=== PATIENT | female | born 1980 | race American Indian/Alaskan Native ===

== ENCOUNTER 2021-09-05 17:41 | Inpatient (IN) | payer SELFPAY ==
[2021-09-05 18:54] LABS: Hematocrit 38.6 % (30.3-42.9); Hemoglobin 12.6 gm/dl (10.1-14.3); Mean Corpuscular HGB Conc 33 % (30-34); Mean Corpuscular Volume 92 fl (79-97); Platelet Count 266 K/mm3 (140-440); Red Blood Count 4.22 M/mm3 (3.65-5.03); Red Cell Distribution Width 16.3 % (13.2-15.2)
[2021-09-05] MEDS ORDERED: fentaNYL 100 MCG/2 ML INJ IV PRN (18:56)
[2021-09-05] MEDS ORDERED: PROMETHAZINE 25 MG TAB PO PRN (18:56)
[2021-09-05] MEDS ORDERED: ACETAMINOPHEN 325 MG TAB PO PRN (18:56)
[2021-09-05] MEDS ORDERED: LOPERAMIDE 2 MG CAP PO PRN (18:56)
[2021-09-05] MEDS ORDERED: BUTORPHANOL 2 MG/1 ML INJ IV PRN (18:56)
[2021-09-05] MEDS ORDERED: NalbUPHINE 10 MG/1 ML INJ IV PRN (18:56)
[2021-09-05] MEDS ORDERED: MINERAL OIL 30 ML ORAL LIQD PO PRN (18:56)
--- NOTE | 2021-09-05 19:01 | History and Physical Report ---
History of Present Illness Date of examination: 09/05/21 History of present illness: 41-year-old -0-0-1 at 29 point 2/7 weeks with AUDREY 11/19/2021 by ultrasound presents with elevated blood pressures and headache. Patient of suture : Plan for evaluation of chronic hypertension with possible superimposed preeclampsia. Patient had a positive AFP for open neural tube defect: See records scanned into chart. Elevated blood pressures with associated headache and edema. Patient has a history of benign essential hypertension Patient was on 100 mg of labetalol twice daily started in April 2021 05/12/2021 24 urine protein 109 LDH 220 Uric acid 5.5 Platelets 442 Past History Past Medical History: hypertension - Obstetrical History Expected Date of Delivery: 11/19/21 Actual Gestation: 29 Week(s) 3 Day(s) : 2 Para: 1 Medications and Allergies Allergies Allergy/AdvReac Type Severity Reaction Status Date / Time No Known Allergies Allergy Unverified 09/05/21 17:54 Active Meds: Active Medications Acetaminophen (Acetaminophen 325 Mg Tab) 650 mg PO Q4H PRN PRN Reason: Pain, Mild (1-3) Butorphanol Tartrate (Butorphanol 2 Mg/1 Ml Inj) 2 mg IV Q2H PRN PRN Reason: Pain , Severe (7-10) Fentanyl (Fentanyl 100 Mcg/2 Ml Inj) 100 mcg IV Q2H PRN PRN Reason: Pain,Severe (7-10) LABOR PAIN Lactated Ringer's (Lactated Ringers) 1,000 mls @ 125 mls/hr IV DIRECT [facility]ERY[facility] Loperamide HCl (Loperamide 2 Mg Cap) 2 mg PO ONCE PRN PRN Reason: give with Hemabate Mineral Oil (Mineral Oil 30 Ml Oral Liqd) 30 ml PO QHS PRN PRN Reason: Constipation Nalbuphine HCl (Nalbuphine 10 Mg/1 Ml Inj) 10 mg IV Q2H PRN PRN Reason: Pain, Moderate (4-6) Promethazine HCl (Promethazine 25 Mg Tab) 25 mg PO Q6H PRN PRN Reason: Nausea And Vomiting Review of Systems All systems: negative (Positive headache, positive edema) - Vital Signs Vital signs: Vital Signs Pulse Pulse Ox 89 99 09/05/21 18:06 09/05/21 18:06 Temp Pulse Resp BP Pulse Ox 81 147/87 98 09/05/21 18:56 09/05/21 18:53 09/05/21 18:56 - Physical Exam Breasts: Positive: deferred Cardiovascular: Regular rate Lungs: Positive: Clear to auscultation, Normal air movement Abdomen: Positive: normal appearance, normal bowel sounds Genitourinary (Female): Positive: normal external genitalia, normal perenium Vulva: both: normal Vagina: Positive: normal moisture Uterus: Positive: enlarged Adnexa: both: normal Anus/Rectum: Positive: normal perianal skin Extremities: Positive: normal Deep Tendon Reflex Grade: Normal +2 - Obstetrical FHR: category 1 Results Result Diagrams: 09/05/21 18:40 09/05/21 18:40 Abnormal lab results 09/05/21 Range/Units 18:40 RDW 16.3 H (13.2-15.2) % All other labs normal. Assessment and Plan Admit to labor and delivery for 24-hour urine protein collection Continuous monitoring Labetalol 100 mg p.o. twice daily will increase if necessary IV labetalol and hydralazine for breakthrough blood pressures greater than 160/110 Serial PIH labs and blood pressure monitoring OB ultrasound for EFW, presentation, and BPP steroid Magnesium sulfate of blood pressures meet severe criteria APA consult in a.m. Maternal status stable at bedside Luther Philip MD
[2021-09-05 19:04] LABS: Bilirubin,Urine NEG (Negative); Blood,Urine SM (Negative); Color,Urine Straw (Yellow); RBC,Urine < 1.0 /HPF (0.0-6.0); Urobilinogen,Urine < 2.0 mg/dL (<2.0); WBC,Urine < 1.0 /HPF (0.0-6.0)
[2021-09-05 19:20] LABS: Alanine Aminotransferase 9 units/L (7-56); Uric Acid 5.8 mg/dL (3.5-7.6)
--- NOTE | 2021-09-05 19:22 | Ultrasound Report ---
ULTRASOUND OBSTETRIC LIMITED ULTRASOUND BIOPHYSICAL PROFILE INDICATION / CLINICAL INFORMATION: EFW,Placenta location, presentation. Clinical Gestational Age (GA) in weeks, days: 29, 2 TECHNIQUE: Transabdominal. COMPARISON: None available. FINDINGS: Single intrauterine . Biparietal Diameter = 7.2 cm = 28, 5 weeks, days Head Circumference = 26.4 cm = 28, 5 weeks, days Abdominal Circumference = 22.9 cm = 27, 2 weeks, days Femur Length = 5.3 cm = 28, 1 weeks, days Average Ultrasound Age (AUA) = 28, 2 weeks, days Estimated weight 1127 g. BREATHING MOVEMENT = 2 GROSS BODY MOVEMENT = 2 TONE = 2 QUALITATIVE AMNIOTIC FLUID VOLUME = 2 TOTAL BIOPHYSICAL SCORE = 8/8 HEART RATE (beats per minute): 154 PRESENTATION: Cephalic. ADDITIONAL FINDINGS: Posterior grade 2 placenta IMPRESSION: 1. Biophysical Score = 8/8 2. Single live intrauterine gestation with an average gestational age of 28 weeks 2 days. heart tones measured at 154 bpm. 3. Additional findings as above. Signer Name: Juan Antonio Noble DO Signed: 09/05/2021 7:18 PM Workstation Name: [id number]
[2021-09-05] MEDS: BETAMET ACET/BETAMET NA PH 6 MG/ML INJ 5 ML MDV IM SCH (20:22)
[2021-09-05] MEDS: LACTATED RINGERS 1,000 ML IV SCH (20:32)
[2021-09-06] MEDS: LACTATED RINGERS 1,000 ML IV SCH (04:40)
[2021-09-06] MEDS ORDERED: labetaloL 100 MG/20 ML INJ MDV IV PRN ×2 (06:12→06:15)
[2021-09-06] MEDS ORDERED: hydrALAZINE 20 MG/1 ML INJ IV PRN (06:18)
--- NOTE | 2021-09-06 14:55 | Progress Note ---
Subjective - Subjective Date of service: 09/06/21 Interval history: 41-year-old -0-0-1 at 29 point 3/7 weeks with AUDREY 11/19/2021 by ultrasound presents with elevated blood pressures and headache. Patient of Central : Plan for evaluation of chronic hypertension with possible superimposed preeclampsia. At bedside patient is awake alert and oriented x3 She has no complaints. She admits to good movement. 24-hour urine protein collection in process Review of blood pressures reveals a BP range of 180/92-130s over 80s in the past 24 hours. Patient has had 2 recorded severe blood pressure ranges over 160/110 in the last 24 hours. Plan is to increase for labetalol to 200 mg p.o. twice daily. PIH labs stable Plan for OB ultrasound for structural survey given a positive AFP APA consult in place Will use IV antihypertensive for breakthrough severe range blood pressures per acog emergent hypertension algorithm. Continue expectant management, will complete steroids today. Intermittent monitoring category 1 Maternal and status reassuring overall Luther Philip MD Objective - Vital Signs Vital Signs: Vital Signs - 12hr 09/06/21 09/06/21 09/06/21 02:59 03:04 03:09 Pulse Rate 88 85 88 Respiratory Rate Blood Pressure Blood Pressure [Right] O2 Sat by Pulse 97 97 96 Oximetry O2 Sat by Pulse Oximetry [ Anterior Bilateral Throughout] 09/06/21 09/06/21 09/06/21 03:14 03:19 03:24 Pulse Rate 90 88 82 Respiratory Rate Blood Pressure Blood Pressure [Right] O2 Sat by Pulse 97 98 98 Oximetry O2 Sat by Pulse Oximetry [ Anterior Bilateral Throughout] 09/06/21 09/06/21 09/06/21 03:29 03:34 03:39 Pulse Rate 88 102 H 104 H Respiratory Rate Blood Pressure Blood Pressure [Right] O2 Sat by Pulse 98 100 98 Oximetry O2 Sat by Pulse Oximetry [ Anterior Bilateral Throughout] 09/06/21 09/06/21 09/06/21 03:44 03:49 03:54 Pulse Rate 93 H 90 88 Respiratory Rate Blood Pressure Blood Pressure [Right] O2 Sat by Pulse 98 98 99 Oximetry O2 Sat by Pulse Oximetry [ Anterior Bilateral Throughout] 09/06/21 09/06/21 09/06/21 03:59 04:04 04:09 Pulse Rate 91 H 88 86 Respiratory Rate Blood Pressure Blood Pressure [Right] O2 Sat by Pulse 99 99 98 Oximetry O2 Sat by Pulse Oximetry [ Anterior Bilateral Throughout] 09/06/21 09/06/21 09/06/21 04:14 04:15 04:19 Pulse Rate 92 H 105 H 86 Respiratory Rate Blood Pressure Blood Pressure [Right] O2 Sat by Pulse 99 93 98 Oximetry O2 Sat by Pulse Oximetry [ Anterior Bilateral Throughout] 09/06/21 09/06/21 09/06/21 04:24 04:39 04:44 Pulse Rate 100 H 97 H 97 H Respiratory Rate Blood Pressure Blood Pressure [Right] O2 Sat by Pulse 98 99 99 Oximetry O2 Sat by Pulse Oximetry [ Anterior Bilateral Throughout] 09/06/21 09/06/21 09/06/21 04:49 04:52 04:54 Pulse Rate 96 H 96 H 97 H Respiratory Rate Blood Pressure 129/82 Blood Pressure 129/82 [Right] O2 Sat by Pulse 99 99 Oximetry O2 Sat by Pulse Oximetry [ Anterior Bilateral Throughout] 09/06/21 09/06/21 09/06/21 04:59 05:04 05:09 Pulse Rate 99 H 95 H 101 H Respiratory Rate Blood Pressure Blood Pressure [Right] O2 Sat by Pulse 99 99 99 Oximetry O2 Sat by Pulse Oximetry [ Anterior Bilateral Throughout] 09/06/21 09/06/21 09/06/21 05:14 05:19 05:24 Pulse Rate 92 H 96 H 94 H Respiratory Rate Blood Pressure Blood Pressure [Right] O2 Sat by Pulse 99 99 98 Oximetry O2 Sat by Pulse Oximetry [ Anterior Bilateral Throughout] 09/06/21 09/06/21 09/06/21 05:29 05:34 05:39 Pulse Rate 96 H 109 H 95 H Respiratory Rate Blood Pressure Blood Pressure [Right] O2 Sat by Pulse 98 99 98 Oximetry O2 Sat by Pulse Oximetry [ Anterior Bilateral Throughout] 09/06/21 09/06/21 09/06/21 05:44 05:49 05:54 Pulse Rate 96 H 107 H 96 H Respiratory Rate Blood Pressure Blood Pressure [Right] O2 Sat by Pulse 97 97 98 Oximetry O2 Sat by Pulse Oximetry [ Anterior Bilateral Throughout] 09/06/21 09/06/21 09/06/21 05:59 06:04 06:09 Pulse Rate 107 H 117 H 91 H Respiratory Rate Blood Pressure Blood Pressure [Right] O2 Sat by Pulse 98 96 98 Oximetry O2 Sat by Pulse Oximetry [ Anterior Bilateral Throughout] 09/06/21 09/06/21 09/06/21 06:14 06:19 06:24 Pulse Rate 100 H 99 H 89 Respiratory Rate Blood Pressure Blood Pressure [Right] O2 Sat by Pulse 97 97 97 Oximetry O2 Sat by Pulse Oximetry [ Anterior Bilateral Throughout] 09/06/21 09/06/21 09/06/21 06:29 06:31 06:34 Pulse Rate 88 103 H 89 Respiratory Rate Blood Pressure Blood Pressure [Right] O2 Sat by Pulse 98 91 98 Oximetry O2 Sat by Pulse Oximetry [ Anterior Bilateral Throughout] 09/06/21 09/06/21 09/06/21 06:37 06:39 06:42 Pulse Rate 98 H 88 71 Respiratory Rate Blood Pressure Blood Pressure [Right] O2 Sat by Pulse 93 95 93 Oximetry O2 Sat by Pulse Oximetry [ Anterior Bilateral Throughout] 09/06/21 09/06/21 09/06/21 06:44 06:49 06:54 Pulse Rate 92 H 91 H 103 H Respiratory Rate Blood Pressure Blood Pressure [Right] O2 Sat by Pulse 95 98 97 Oximetry O2 Sat by Pulse Oximetry [ Anterior Bilateral Throughout] 09/06/21 09/06/21 09/06/21 06:59 07:04 07:09 Pulse Rate 95 H 85 86 Respiratory Rate Blood Pressure Blood Pressure [Right] O2 Sat by Pulse 96 98 97 Oximetry O2 Sat by Pulse Oximetry [ Anterior Bilateral Throughout] 09/06/21 09/06/21 09/06/21 07:14 07:19 07:24 Pulse Rate 86 90 98 H Respiratory Rate Blood Pressure Blood Pressure [Right] O2 Sat by Pulse 98 99 98 Oximetry O2 Sat by Pulse Oximetry [ Anterior Bilateral Throughout] 09/06/21 09/06/21 09/06/21 07:25 07:26 07:27 Pulse Rate 95 H 99 H Respiratory 16 Rate Blood Pressure 146/81 Blood Pressure 146/81 [Right] O2 Sat by Pulse 100 Oximetry O2 Sat by Pulse 98 Oximetry [ Anterior Bilateral Throughout] 09/06/21 09/06/21 09/06/21 07:29 07:34 08:10 Pulse Rate 95 H 102 H 85 Respiratory Rate Blood Pressure Blood Pressure [Right] O2 Sat by Pulse 99 97 98 Oximetry O2 Sat by Pulse Oximetry [ Anterior Bilateral Throughout] 09/06/21 09/06/21 09/06/21 08:15 08:20 08:25 Pulse Rate 104 H 106 H 97 H Respiratory Rate Blood Pressure Blood Pressure [Right] O2 Sat by Pulse 97 97 96 Oximetry O2 Sat by Pulse Oximetry [ Anterior Bilateral Throughout] 09/06/21 09/06/21 09/06/21 08:26 08:30 08:35 Pulse Rate 101 H 99 H 87 Respiratory Rate Blood Pressure Blood Pressure [Right] O2 Sat by Pulse 94 96 97 Oximetry O2 Sat by Pulse Oximetry [ Anterior Bilateral Throughout] 09/06/21 09/06/21 09/06/21 08:36 08:40 08:45 Pulse Rate 98 H 98 H 94 H Respiratory Rate Blood Pressure Blood Pressure [Right] O2 Sat by Pulse 94 97 97 Oximetry O2 Sat by Pulse Oximetry [ Anterior Bilateral Throughout] 09/06/21 09/06/21 09/06/21 08:50 08:55 09:00 Pulse Rate 101 H 99 H 92 H Respiratory Rate Blood Pressure Blood Pressure [Right] O2 Sat by Pulse 98 98 97 Oximetry O2 Sat by Pulse Oximetry [ Anterior Bilateral Throughout] 09/06/21 09/06/21 09/06/21 09:05 09:10 09:15 Pulse Rate 88 92 H 88 Respiratory Rate Blood Pressure Blood Pressure [Right] O2 Sat by Pulse 98 99 98 Oximetry O2 Sat by Pulse Oximetry [ Anterior Bilateral Throughout] 09/06/21 09/06/21 09/06/21 09:20 09:25 09:30 Pulse Rate 103 H 104 H 128 H Respiratory Rate Blood Pressure Blood Pressure [Right] O2 Sat by Pulse 98 100 98 Oximetry O2 Sat by Pulse Oximetry [ Anterior Bilateral Throughout] 09/06/21 09/06/21 09/06/21 09:35 09:40 09:45 Pulse Rate 112 H 102 H 100 H Respiratory Rate Blood Pressure Blood Pressure [Right] O2 Sat by Pulse 98 98 97 Oximetry O2 Sat by Pulse Oximetry [ Anterior Bilateral Throughout] 09/06/21 09/06/21 09/06/21 09:49 09:55 09:59 Pulse Rate 103 H 104 H 105 H Respiratory Rate Blood Pressure Blood Pressure [Right] O2 Sat by Pulse 98 98 99 Oximetry O2 Sat by Pulse Oximetry [ Anterior Bilateral Throughout] 09/06/21 09/06/21 09/06/21 10:02 10:04 10:32 Pulse Rate 100 H 102 H 100 H Respiratory Rate Blood Pressure 161/94 161/94 Blood Pressure [Right] O2 Sat by Pulse 98 Oximetry O2 Sat by Pulse Oximetry [ Anterior Bilateral Throughout] 09/06/21 09/06/21 09/06/21 13:25 13:26 13:28 Pulse Rate 100 H 100 H 100 H Respiratory Rate Blood Pressure 141/93 139/88 Blood Pressure [Right] O2 Sat by Pulse 99 Oximetry O2 Sat by Pulse Oximetry [ Anterior Bilateral Throughout] 09/06/21 13:30 Pulse Rate 99 H Respiratory Rate Blood Pressure Blood Pressure [Right] O2 Sat by Pulse 99 Oximetry O2 Sat by Pulse Oximetry [ Anterior Bilateral Throughout] - Labs Labs: Abnormal Labs 09/05/21 09/05/21 18:40 18:40 RDW 16.3 H Creatinine 0.5 L Lactate Dehydrogenase 275 H Laboratory Results - last 24 hr 09/05/21 09/05/21 09/05/21 18:30 18:40 18:40 WBC 8.1 RBC 4.22 Hgb 12.6 Hct 38.6 MCV 92 MCH 30 MCHC 33 RDW 16.3 H Plt Count 266 Creatinine 0.5 L Estimated GFR > 60 Uric Acid 5.8 AST 19 ALT 9 Lactate Dehydrogenase 275 H Urine Color Straw Urine Turbidity Clear Urine pH 6.0 Ur Specific [place] 1.006 Urine Protein 30 mg/dl Urine Glucose (UA) Neg Urine Ketones Neg Urine Blood Sm Urine Nitrite Neg Urine Bilirubin Neg Urine Urobilinogen < 2.0 Ur Leukocyte Esterase Neg Urine WBC (Auto) < 1.0 Urine RBC (Auto) < 1.0 U Epithel Cells (Auto) 2.0 SARS-CoV-2 (PCR) Blood Type Antibody Screen 09/05/21 09/06/21 18:40 10:00 WBC RBC Hgb Hct MCV MCH MCHC RDW Plt Count Creatinine Estimated GFR Uric Acid AST ALT Lactate Dehydrogenase Urine Color Urine Turbidity Urine pH Ur Specific [place] Urine Protein Urine Glucose (UA) Urine Ketones Urine Blood Urine Nitrite Urine Bilirubin Urine Urobilinogen Ur Leukocyte Esterase Urine WBC (Auto) Urine RBC (Auto) U Epithel Cells (Auto) SARS-CoV-2 (PCR) Negative Blood Type B POSITIVE Antibody Screen Negative
--- NOTE | 2021-09-06 17:04 | Consultation ---
History of Present Illness Consult date: 09/06/21 Requesting physician: DIMITRIS PENA History of present illness: Ms. Patel is a 41 y/o AUDREY 11/19/21 EGA at 29 3/7 weeks sent in from OB' office with elevated BP's and CORRAL ? Denies H/O CHTN - states started on Labetalol early in ? around 20 weeks BP in ob office 09/05/21 at 155/96 Nurse reports High BP of 161/94 this am Most recent BP's 149/87 and 161/94 Denies CORRAL's [place] or RUQ Pain Pos ONTD screen PIH labs 09/05/21 AST/ALT at 19/9 H/H at 12.6/38 Plts at 266 Creat at .5 Spot UA at 30 24 Hour Urine Prot Pending ( 24 Hour Urine Prot at 109 mg on 05/12/21 ) [facility] US 09/05/21 EFW at 1127 mg / 24 hours - at 5% with AC at 3.7% - FGR BPP 8/8 Labetalol started 100 mg BID in April - Now 200 BID Abd obese NT no ruq tenderness ext 1 plus edema dtr 2/4 no clonus Past History Past Medical History: hypertension - Obstetrical History : 2 Medications and Allergies Allergies Allergy/AdvReac Type Severity Reaction Status Date / Time No Known Allergies Allergy Unverified 09/05/21 17:54 Active Meds: Active Medications Acetaminophen (Acetaminophen 325 Mg Tab) 650 mg PO Q4H PRN PRN Reason: Pain, Mild (1-3) Last Admin: 09/05/21 20:21 Dose: 650 mg Betamethasone Acet/Betameth SodPhos (Betamet Acet/Betamet Na Ph 6 Mg/Ml Inj 5 Ml Mdv) 12 mg IM Q24H [facility] Stop: 09/06/21 20:01 Last Admin: 09/05/21 20:22 Dose: 12 mg Butorphanol Tartrate (Butorphanol 2 Mg/1 Ml Inj) 2 mg IV Q2H PRN PRN Reason: Pain , Severe (7-10) Fentanyl (Fentanyl 100 Mcg/2 Ml Inj) 100 mcg IV Q2H PRN PRN Reason: Pain,Severe (7-10) LABOR PAIN Hydralazine HCl (Hydralazine 20 Mg/1 Ml Inj) 10 mg IV ONCE PRN PRN Reason: Blood Pressure Lactated Ringer's (Lactated Ringers) 1,000 mls @ 125 mls/hr IV DIRECT [facility] Last Admin: 09/06/21 04:40 Dose: 125 mls/hr Labetalol HCl (Labetalol 100 Mg Tab) 100 mg PO BID [facility] Last Admin: 09/06/21 10:32 Dose: 100 mg Labetalol HCl (Labetalol 20 Mg/4 Ml Inj) 20 mg IV ONCE PRN PRN Reason: Blood Pressure Labetalol HCl (Labetalol 100 Mg/20 Ml Inj Mdv) 40 mg IV ONCE PRN PRN Reason: Blood Pressure Labetalol HCl (Labetalol 100 Mg/20 Ml Inj Mdv) 80 mg IV ONCE PRN PRN Reason: Blood Pressure Labetalol HCl (Labetalol 200 Mg Tab) 200 mg PO BID [facility] Loperamide HCl (Loperamide 2 Mg Cap) 2 mg PO ONCE PRN PRN Reason: give with Hemabate Mineral Oil (Mineral Oil 30 Ml Oral Liqd) 30 ml PO QHS PRN PRN Reason: Constipation Nalbuphine HCl (Nalbuphine 10 Mg/1 Ml Inj) 10 mg IV Q2H PRN PRN Reason: Pain, Moderate (4-6) Promethazine HCl (Promethazine 25 Mg Tab) 25 mg PO Q6H PRN PRN Reason: Nausea And Vomiting - Vital Signs Vital signs: Vital Signs Pulse Pulse Ox 89 99 09/05/21 18:06 09/05/21 18:06 Temp Pulse Resp BP Pulse Ox 98.8 F 94 H 16 149/87 99 09/05/21 19:19 09/06/21 17:01 09/06/21 07:26 09/06/21 17:01 09/06/21 16:58 Results Result Diagrams: 09/05/21 18:40 09/05/21 18:40 Abnormal lab results 09/05/21 09/05/21 Range/Units 18:40 18:40 RDW 16.3 H (13.2-15.2) % Creatinine 0.5 L (0.6-1.2) mg/dL Lactate Dehydrogenase 275 H (91-180) units/L All other labs normal. Assessment and Plan Impression 1. [place] IUP at 29 3/7 weeks 2. Suspected CHTN R/O Superimposed Preeclampsia 3. FGR 4. Pos ONTD Screen 5. AMA - NIPT Neg - Please have OB confirm Recommendations 1. Please obtain Arterial Cord Dopplers due to FGR 2. Labetalol 200 BID if BP's not improving increase to 200 TID 3. 24 Hour urine pending 4. IV Labetalol/Hydralazine for BP's Sys > 160 or [place] > 110 5. Delivery for S/S of severe preeclampsia or compromise 6. LDA q day 7. Steroids for FLM 8. Deposition pending completion of 24 Hour urine prot 9. Serial US for growth q 2-3 weeks 10. BPP and cord dopplers twice per week due to FGR
--- NOTE | 2021-09-06 18:32 | Ultrasound Report ---
ULTRASOUND OB VELOCIMETRY UMBILICAL ARTERY HISTORY: PIH TECHNIQUE: Transabdominal ultrasound with color and spectral Doppler imaging COMPARISON: None available FINDINGS: 3 segments of the umbilical cord were evaluated. heart rate measures 155 bpm. The spectral wave forms are normal and persistent. Average S/D ratio measures: 3.7 Average resistive index measures: 0.7 IMPRESSION: No significant abnormality. Signer Name: Richard Leal MD Signed: 09/06/2021 6:27 PM Workstation Name: [id number]
[2021-09-06] MEDS: BETAMET ACET/BETAMET NA PH 6 MG/ML INJ 5 ML MDV IM SCH (21:48)
--- NOTE | 2021-09-07 14:14 | Progress Note ---
Assessment and Plan IUP at 29.4wks with chronic HTN, mild preeclampsia without headache or severe features; s/p steroids 1. Adjust labetalol oral upwards 300mg q8hrs and give IV antihypertensive as needed 2. Appreciate APA 3. Will do mgt per APA recommendations Subjective Date of service: 09/07/21 Principal diagnosis: IUP at 29.4wks with chronic HTN, mild preeclampsia Interval history: Pt denies headache and has been taking her meds at the hospital. pt admits to movement, denies LOF or vag bleed. Objective - Constitutional Vitals: Vital Signs - 12hr 09/07/21 09/07/21 09/07/21 02:13 02:18 02:23 Temperature Pulse Rate 98 H 116 H 100 H Respiratory Rate Blood Pressure O2 Sat by Pulse 98 98 98 Oximetry O2 Sat by Pulse Oximetry [ Anterior Bilateral Throughout] 09/07/21 09/07/21 09/07/21 02:28 02:33 02:38 Temperature Pulse Rate 96 H 99 H 95 H Respiratory Rate Blood Pressure O2 Sat by Pulse 99 100 98 Oximetry O2 Sat by Pulse Oximetry [ Anterior Bilateral Throughout] 09/07/21 09/07/21 09/07/21 02:43 02:48 02:53 Temperature Pulse Rate 97 H 97 H 97 H Respiratory Rate Blood Pressure O2 Sat by Pulse 98 98 98 Oximetry O2 Sat by Pulse Oximetry [ Anterior Bilateral Throughout] 09/07/21 09/07/21 09/07/21 02:58 02:59 03:03 Temperature Pulse Rate 98 H 104 H 93 H Respiratory Rate Blood Pressure 134/76 O2 Sat by Pulse 98 99 Oximetry O2 Sat by Pulse Oximetry [ Anterior Bilateral Throughout] 09/07/21 09/07/21 09/07/21 03:08 03:13 03:18 Temperature Pulse Rate 95 H 95 H 101 H Respiratory Rate Blood Pressure O2 Sat by Pulse 98 98 99 Oximetry O2 Sat by Pulse Oximetry [ Anterior Bilateral Throughout] 09/07/21 09/07/21 09/07/21 03:23 03:28 03:33 Temperature Pulse Rate 97 H 97 H 96 H Respiratory Rate Blood Pressure O2 Sat by Pulse 98 98 98 Oximetry O2 Sat by Pulse Oximetry [ Anterior Bilateral Throughout] 09/07/21 09/07/21 09/07/21 03:38 03:43 03:48 Temperature Pulse Rate 90 92 H 91 H Respiratory Rate Blood Pressure O2 Sat by Pulse 99 97 98 Oximetry O2 Sat by Pulse Oximetry [ Anterior Bilateral Throughout] 09/07/21 09/07/21 09/07/21 03:53 03:58 03:59 Temperature Pulse Rate 91 H 95 H 93 H Respiratory Rate Blood Pressure 133/67 O2 Sat by Pulse 98 98 Oximetry O2 Sat by Pulse Oximetry [ Anterior Bilateral Throughout] 09/07/21 09/07/21 09/07/21 04:03 04:08 04:13 Temperature Pulse Rate 91 H 96 H 101 H Respiratory Rate Blood Pressure O2 Sat by Pulse 98 97 98 Oximetry O2 Sat by Pulse Oximetry [ Anterior Bilateral Throughout] 09/07/21 09/07/21 09/07/21 04:18 04:23 04:28 Temperature Pulse Rate 92 H 88 90 Respiratory Rate Blood Pressure O2 Sat by Pulse 98 98 97 Oximetry O2 Sat by Pulse Oximetry [ Anterior Bilateral Throughout] 09/07/21 09/07/21 09/07/21 04:33 04:38 04:43 Temperature Pulse Rate 93 H 87 88 Respiratory Rate Blood Pressure O2 Sat by Pulse 97 97 97 Oximetry O2 Sat by Pulse Oximetry [ Anterior Bilateral Throughout] 09/07/21 09/07/21 09/07/21 04:48 04:53 04:58 Temperature Pulse Rate 92 H 88 102 H Respiratory Rate Blood Pressure O2 Sat by Pulse 97 98 98 Oximetry O2 Sat by Pulse Oximetry [ Anterior Bilateral Throughout] 09/07/21 09/07/21 09/07/21 04:59 05:03 05:08 Temperature Pulse Rate 97 H 87 85 Respiratory Rate Blood Pressure 136/75 O2 Sat by Pulse 98 99 Oximetry O2 Sat by Pulse Oximetry [ Anterior Bilateral Throughout] 09/07/21 09/07/21 09/07/21 05:13 05:18 05:23 Temperature Pulse Rate 88 86 91 H Respiratory Rate Blood Pressure O2 Sat by Pulse 99 98 98 Oximetry O2 Sat by Pulse Oximetry [ Anterior Bilateral Throughout] 09/07/21 09/07/21 09/07/21 05:28 05:33 05:38 Temperature Pulse Rate 92 H 102 H 90 Respiratory Rate Blood Pressure O2 Sat by Pulse 97 97 98 Oximetry O2 Sat by Pulse Oximetry [ Anterior Bilateral Throughout] 09/07/21 09/07/21 09/07/21 05:43 05:48 05:53 Temperature Pulse Rate 86 83 89 Respiratory Rate Blood Pressure O2 Sat by Pulse 98 99 98 Oximetry O2 Sat by Pulse Oximetry [ Anterior Bilateral Throughout] 09/07/21 09/07/21 09/07/21 05:58 05:59 06:03 Temperature Pulse Rate 88 100 H 89 Respiratory Rate Blood Pressure 139/75 O2 Sat by Pulse 98 94 98 Oximetry O2 Sat by Pulse Oximetry [ Anterior Bilateral Throughout] 09/07/21 09/07/21 09/07/21 06:08 06:13 06:18 Temperature Pulse Rate 90 86 84 Respiratory Rate Blood Pressure O2 Sat by Pulse 99 98 98 Oximetry O2 Sat by Pulse Oximetry [ Anterior Bilateral Throughout] 09/07/21 09/07/21 09/07/21 06:23 06:28 06:33 Temperature Pulse Rate 88 87 88 Respiratory Rate Blood Pressure O2 Sat by Pulse 98 98 99 Oximetry O2 Sat by Pulse Oximetry [ Anterior Bilateral Throughout] 09/07/21 09/07/21 09/07/21 06:41 06:46 06:51 Temperature Pulse Rate 111 H 82 84 Respiratory Rate Blood Pressure O2 Sat by Pulse 99 99 99 Oximetry O2 Sat by Pulse Oximetry [ Anterior Bilateral Throughout] 09/07/21 09/07/21 09/07/21 06:56 06:59 07:01 Temperature Pulse Rate 91 H 89 82 Respiratory Rate Blood Pressure 176/95 O2 Sat by Pulse 99 99 Oximetry O2 Sat by Pulse Oximetry [ Anterior Bilateral Throughout] 09/07/21 09/07/21 09/07/21 07:06 07:07 07:08 Temperature Pulse Rate 93 H 92 H 91 H Respiratory Rate Blood Pressure 168/100 155/83 O2 Sat by Pulse 98 Oximetry O2 Sat by Pulse Oximetry [ Anterior Bilateral Throughout] 09/07/21 09/07/21 09/07/21 07:11 07:16 07:21 Temperature Pulse Rate 89 81 84 Respiratory Rate Blood Pressure O2 Sat by Pulse 100 99 98 Oximetry O2 Sat by Pulse Oximetry [ Anterior Bilateral Throughout] 09/07/21 09/07/21 09/07/21 07:26 07:31 07:35 Temperature 98.8 F Pulse Rate 88 83 99 H Respiratory 18 Rate Blood Pressure O2 Sat by Pulse 98 99 100 Oximetry O2 Sat by Pulse 100 Oximetry [ Anterior Bilateral Throughout] 09/07/21 09/07/21 09/07/21 07:36 07:41 07:46 Temperature Pulse Rate 95 H 78 98 H Respiratory Rate Blood Pressure O2 Sat by Pulse 99 99 98 Oximetry O2 Sat by Pulse Oximetry [ Anterior Bilateral Throughout] 09/07/21 09/07/21 09/07/21 07:51 07:56 07:59 Temperature Pulse Rate 111 H 110 H 105 H Respiratory Rate Blood Pressure 148/86 O2 Sat by Pulse 97 97 Oximetry O2 Sat by Pulse Oximetry [ Anterior Bilateral Throughout] 09/07/21 09/07/21 09/07/21 08:01 08:06 08:11 Temperature Pulse Rate 101 H 105 H 80 Respiratory Rate Blood Pressure O2 Sat by Pulse 98 97 97 Oximetry O2 Sat by Pulse Oximetry [ Anterior Bilateral Throughout] 09/07/21 09/07/21 09/07/21 08:16 08:21 08:26 Temperature Pulse Rate 73 78 83 Respiratory Rate Blood Pressure O2 Sat by Pulse 99 99 99 Oximetry O2 Sat by Pulse Oximetry [ Anterior Bilateral Throughout] 09/07/21 09/07/21 09/07/21 08:31 08:36 08:41 Temperature Pulse Rate 79 82 84 Respiratory Rate Blood Pressure O2 Sat by Pulse 98 99 99 Oximetry O2 Sat by Pulse Oximetry [ Anterior Bilateral Throughout] 09/07/21 09/07/21 09/07/21 08:46 08:51 08:56 Temperature Pulse Rate 88 86 86 Respiratory Rate Blood Pressure O2 Sat by Pulse 96 98 97 Oximetry O2 Sat by Pulse Oximetry [ Anterior Bilateral Throughout] 09/07/21 09/07/21 09/07/21 08:59 09:01 09:06 Temperature Pulse Rate 93 H 91 H 94 H Respiratory Rate Blood Pressure 155/75 O2 Sat by Pulse 98 98 Oximetry O2 Sat by Pulse Oximetry [ Anterior Bilateral Throughout] 09/07/21 09/07/21 09/07/21 09:11 09:16 09:21 Temperature Pulse Rate 79 84 81 Respiratory Rate Blood Pressure O2 Sat by Pulse 98 97 98 Oximetry O2 Sat by Pulse Oximetry [ Anterior Bilateral Throughout] 09/07/21 09/07/21 09/07/21 09:26 09:31 09:36 Temperature Pulse Rate 83 90 95 H Respiratory Rate Blood Pressure O2 Sat by Pulse 100 99 100 Oximetry O2 Sat by Pulse Oximetry [ Anterior Bilateral Throughout] 09/07/21 09/07/21 09/07/21 09:41 09:46 09:51 Temperature Pulse Rate 93 H 101 H 90 Respiratory Rate Blood Pressure O2 Sat by Pulse 99 99 98 Oximetry O2 Sat by Pulse Oximetry [ Anterior Bilateral Throughout] 09/07/21 09/07/21 09/07/21 09:56 09:59 10:01 Temperature Pulse Rate 89 88 101 H Respiratory Rate Blood Pressure 138/81 O2 Sat by Pulse 99 97 Oximetry O2 Sat by Pulse Oximetry [ Anterior Bilateral Throughout] 09/07/21 09/07/21 09/07/21 10:02 10:03 10:06 Temperature Pulse Rate 85 85 95 H Respiratory Rate Blood Pressure 138/81 138/81 O2 Sat by Pulse 98 Oximetry O2 Sat by Pulse Oximetry [ Anterior Bilateral Throughout] 09/07/21 09/07/21 09/07/21 10:11 10:16 10:21 Temperature Pulse Rate 86 88 87 Respiratory Rate Blood Pressure O2 Sat by Pulse 99 99 99 Oximetry O2 Sat by Pulse Oximetry [ Anterior Bilateral Throughout] 09/07/21 09/07/21 09/07/21 10:26 10:31 10:36 Temperature Pulse Rate 88 89 87 Respiratory Rate Blood Pressure O2 Sat by Pulse 98 98 98 Oximetry O2 Sat by Pulse Oximetry [ Anterior Bilateral Throughout] 09/07/21 09/07/21 09/07/21 10:41 10:46 10:51 Temperature Pulse Rate 85 97 H 102 H Respiratory Rate Blood Pressure O2 Sat by Pulse 99 97 98 Oximetry O2 Sat by Pulse Oximetry [ Anterior Bilateral Throughout] 09/07/21 09/07/21 09/07/21 10:56 10:59 11:00 Temperature 98.9 F Pulse Rate 89 93 H 88 Respiratory 20 Rate Blood Pressure 171/82 162/79 O2 Sat by Pulse 98 99 Oximetry O2 Sat by Pulse Oximetry [ Anterior Bilateral Throughout] 09/07/21 09/07/21 09/07/21 11:01 11:06 11:11 Temperature Pulse Rate 86 85 106 H Respiratory Rate Blood Pressure 162/79 O2 Sat by Pulse 100 100 99 Oximetry O2 Sat by Pulse Oximetry [ Anterior Bilateral Throughout] 09/07/21 09/07/21 09/07/21 11:16 11:19 11:21 Temperature Pulse Rate 89 91 H 91 H Respiratory Rate Blood Pressure 170/87 O2 Sat by Pulse 99 99 Oximetry O2 Sat by Pulse Oximetry [ Anterior Bilateral Throughout] 09/07/21 09/07/21 09/07/21 11:26 11:29 11:31 Temperature Pulse Rate 94 H 88 86 Respiratory Rate Blood Pressure 144/73 O2 Sat by Pulse 97 98 Oximetry O2 Sat by Pulse Oximetry [ Anterior Bilateral Throughout] 09/07/21 09/07/21 09/07/21 11:36 11:49 11:59 Temperature Pulse Rate 94 H 102 H 93 H Respiratory Rate Blood Pressure 140/94 152/78 O2 Sat by Pulse 98 Oximetry O2 Sat by Pulse Oximetry [ Anterior Bilateral Throughout] 09/07/21 09/07/21 09/07/21 12:09 12:18 12:23 Temperature Pulse Rate 84 92 H 87 Respiratory Rate Blood Pressure 148/80 O2 Sat by Pulse 99 97 Oximetry O2 Sat by Pulse Oximetry [ Anterior Bilateral Throughout] 09/07/21 09/07/21 09/07/21 12:28 12:33 12:38 Temperature Pulse Rate 85 88 89 Respiratory Rate Blood Pressure O2 Sat by Pulse 97 96 97 Oximetry O2 Sat by Pulse Oximetry [ Anterior Bilateral Throughout] 09/07/21 09/07/21 09/07/21 12:43 12:48 12:53 Temperature Pulse Rate 88 106 H 90 Respiratory Rate Blood Pressure 142/74 O2 Sat by Pulse 98 99 98 Oximetry O2 Sat by Pulse Oximetry [ Anterior Bilateral Throughout] 09/07/21 09/07/21 09/07/21 12:58 13:03 13:08 Temperature Pulse Rate 85 89 89 Respiratory Rate Blood Pressure O2 Sat by Pulse 98 98 98 Oximetry O2 Sat by Pulse Oximetry [ Anterior Bilateral Throughout] 09/07/21 09/07/21 09/07/21 13:13 13:18 13:23 Temperature Pulse Rate 93 H 97 H 89 Respiratory Rate Blood Pressure 166/91 O2 Sat by Pulse 98 98 97 Oximetry O2 Sat by Pulse Oximetry [ Anterior Bilateral Throughout] 09/07/21 09/07/21 09/07/21 13:28 13:33 13:38 Temperature Pulse Rate 89 95 H 97 H Respiratory Rate Blood Pressure O2 Sat by Pulse 98 98 99 Oximetry O2 Sat by Pulse Oximetry [ Anterior Bilateral Throughout] 09/07/21 09/07/21 09/07/21 13:43 13:48 13:53 Temperature Pulse Rate 90 102 H 94 H Respiratory Rate Blood Pressure 146/74 O2 Sat by Pulse 98 98 98 Oximetry O2 Sat by Pulse Oximetry [ Anterior Bilateral Throughout] 09/07/21 09/07/21 09/07/21 13:58 14:03 14:04 Temperature Pulse Rate 85 90 89 Respiratory Rate Blood Pressure 149/81 O2 Sat by Pulse 98 97 Oximetry O2 Sat by Pulse Oximetry [ Anterior Bilateral Throughout] General appearance: Present: no acute distress - Neck Neck: normal ROM - Respiratory Respiratory effort: normal - Breasts Breasts: deferred - Cardiovascular Rhythm: regular Extremities: No edema - Gastrointestinal General gastrointestinal: Present: soft, non-tender - Genitourinary Female genitourinary: deferred - Integumentary Integumentary: warm, dry - Neurologic Neurologic: moves all extremities - Psychiatric Psychiatric: cooperative - Labs CBC & Chem 7: 09/05/21 18:40 09/05/21 18:40 Labs: Abnormal lab results 09/05/21 Range/Units 21:50 Ur Total Protein 24 Hr 858.00 H (2-200) mg/dL Urine Total Protein 39 H (5-11.8) mg/dL Medications & Allergies - Medications Allergies/Adverse Reactions: Allergies No Known Allergies Allergy (Verified 09/07/21 09:38) Active Medications: Generic Name Dose Route Start Last Admin Trade Name Freq PRN Reason Stop Dose Admin Acetaminophen 650 mg 09/05/21 18:56 09/05/21 20:21 Acetaminophen 325 Mg Tab PO 650 mg Q4H PRN Administration Pain, Mild (1-3) Butorphanol Tartrate 2 mg 09/05/21 18:56 Butorphanol 2 Mg/1 Ml Inj IV Q2H PRN Pain , Severe (7-10) Fentanyl 100 mcg 09/05/21 18:56 Fentanyl 100 Mcg/2 Ml Inj IV Q2H PRN Pain,Severe (7-10) LABOR PAIN Hydralazine HCl 10 mg 09/06/21 06:18 Hydralazine 20 Mg/1 Ml Inj IV ONCE PRN Blood Pressure Lactated Ringer's 1,000 mls @ 125 mls/hr 09/05/21 19:00 09/06/21 04:40 Lactated Ringers IV 125 mls/hr DIRECT SHERYL Administration Labetalol HCl 20 mg 09/06/21 05:54 09/07/21 11:06 Labetalol 20 Mg/4 Ml Inj IV 20 mg ONCE PRN Administration Blood Pressure Labetalol HCl 40 mg 09/06/21 06:12 Labetalol 100 Mg/20 Ml Inj Mdv IV ONCE PRN Blood Pressure Labetalol HCl 80 mg 09/06/21 06:15 Labetalol 100 Mg/20 Ml Inj Mdv IV ONCE PRN Blood Pressure Labetalol HCl 100 mg 09/07/21 18:00 Labetalol 100 Mg Tab PO Q8H SHERYL Labetalol HCl 200 mg 09/07/21 18:00 Labetalol 200 Mg Tab PO Q8H SHERYL Loperamide HCl 2 mg 09/05/21 18:56 Loperamide 2 Mg Cap PO ONCE PRN give with Hemabate Mineral Oil 30 ml 09/05/21 18:56 Mineral Oil 30 Ml Oral Liqd PO QHS PRN Constipation Nalbuphine HCl 10 mg 09/05/21 18:56 Nalbuphine 10 Mg/1 Ml Inj IV Q2H PRN Pain, Moderate (4-6) Promethazine HCl 25 mg 09/05/21 18:56 Promethazine 25 Mg Tab PO Q6H PRN Nausea And Vomiting
[2021-09-07] MEDS ORDERED: MAGNESIUM SULFATE 40GM/1000ML 40 GM/1,000 ML BAG IV SCH (17:00)
[2021-09-08] MEDS: ASPIRIN EC 81 MG TAB PO SCH (09:33)
--- NOTE | 2021-09-08 11:43 | Progress Note ---
Assessment and Plan IUP at 29.4wks with CHTN, mild preeclampsia without severe features currently on mag sulfate for neuroprotection 1. Appreciate [facility] 2. Will continue labetalol 300mg every 8hrs, weekly umb a. dopplers, twice weekly BPP/ADONIS for same next on 09/09/21 3. Will stop mag sulfate later this pm after 24hrs of neuroprotection 4. Pt disposition will be determined by [facility]. Will continue present mgt All questions encouraged and answered Subjective Date of service: 09/08/21 Principal diagnosis: IUP at 29.4wks with chronic HTN, mild preeclampsia Interval history: pt has no complaints. denies headache and would like to go home. Pt admits to movement, denies LOF or vag bleed or ctx. Objective - Constitutional Vitals: Vital Signs - 12hr 09/07/21 09/07/21 09/07/21 23:36 23:41 23:46 Temperature Pulse Rate 96 H 95 H 91 H Respiratory Rate Blood Pressure O2 Sat by Pulse 99 98 98 Oximetry O2 Sat by Pulse Oximetry [ Anterior Bilateral Throughout] 09/07/21 09/07/21 09/08/21 23:51 23:56 00:01 Temperature Pulse Rate 94 H 95 H 97 H Respiratory Rate Blood Pressure O2 Sat by Pulse 99 99 99 Oximetry O2 Sat by Pulse Oximetry [ Anterior Bilateral Throughout] 09/08/21 09/08/21 09/08/21 00:04 00:07 00:12 Temperature Pulse Rate 93 H 96 H 91 H Respiratory Rate Blood Pressure 133/89 O2 Sat by Pulse 99 99 Oximetry O2 Sat by Pulse Oximetry [ Anterior Bilateral Throughout] 09/08/21 09/08/21 09/08/21 00:17 00:22 00:27 Temperature Pulse Rate 92 H 91 H 89 Respiratory Rate Blood Pressure O2 Sat by Pulse 98 98 98 Oximetry O2 Sat by Pulse Oximetry [ Anterior Bilateral Throughout] 09/08/21 09/08/21 09/08/21 00:32 00:37 00:42 Temperature Pulse Rate 90 91 H 89 Respiratory Rate Blood Pressure O2 Sat by Pulse 98 99 98 Oximetry O2 Sat by Pulse Oximetry [ Anterior Bilateral Throughout] 09/08/21 09/08/21 09/08/21 00:46 00:52 00:57 Temperature Pulse Rate 88 89 88 Respiratory Rate Blood Pressure O2 Sat by Pulse 99 99 99 Oximetry O2 Sat by Pulse Oximetry [ Anterior Bilateral Throughout] 09/08/21 09/08/21 09/08/21 01:02 01:05 01:07 Temperature Pulse Rate 89 92 H 99 H Respiratory Rate Blood Pressure 125/77 O2 Sat by Pulse 99 99 Oximetry O2 Sat by Pulse Oximetry [ Anterior Bilateral Throughout] 09/08/21 09/08/21 09/08/21 01:12 01:17 01:22 Temperature Pulse Rate 96 H 95 H 94 H Respiratory Rate Blood Pressure O2 Sat by Pulse 98 98 97 Oximetry O2 Sat by Pulse Oximetry [ Anterior Bilateral Throughout] 09/08/21 09/08/21 09/08/21 01:27 01:32 01:37 Temperature Pulse Rate 98 H 92 H 92 H Respiratory Rate Blood Pressure O2 Sat by Pulse 95 97 97 Oximetry O2 Sat by Pulse Oximetry [ Anterior Bilateral Throughout] 09/08/21 09/08/21 09/08/21 01:42 01:47 01:52 Temperature Pulse Rate 94 H 93 H 94 H Respiratory Rate Blood Pressure O2 Sat by Pulse 96 96 96 Oximetry O2 Sat by Pulse Oximetry [ Anterior Bilateral Throughout] 09/08/21 09/08/21 09/08/21 01:57 02:02 02:04 Temperature Pulse Rate 94 H 95 H 109 H Respiratory Rate Blood Pressure 116/64 O2 Sat by Pulse 96 96 Oximetry O2 Sat by Pulse Oximetry [ Anterior Bilateral Throughout] 09/08/21 09/08/21 09/08/21 02:07 02:12 02:17 Temperature Pulse Rate 93 H 97 H 94 H Respiratory Rate Blood Pressure O2 Sat by Pulse 96 93 96 Oximetry O2 Sat by Pulse Oximetry [ Anterior Bilateral Throughout] 09/08/21 09/08/21 09/08/21 02:22 02:24 02:27 Temperature Pulse Rate 95 H 97 H 95 H Respiratory Rate Blood Pressure O2 Sat by Pulse 97 94 93 Oximetry O2 Sat by Pulse Oximetry [ Anterior Bilateral Throughout] 09/08/21 09/08/21 09/08/21 02:30 02:32 02:37 Temperature Pulse Rate 98 H 94 H 98 H Respiratory Rate Blood Pressure O2 Sat by Pulse 91 97 97 Oximetry O2 Sat by Pulse Oximetry [ Anterior Bilateral Throughout] 09/08/21 09/08/21 09/08/21 02:42 02:47 02:52 Temperature Pulse Rate 103 H 92 H 95 H Respiratory Rate Blood Pressure O2 Sat by Pulse 96 97 97 Oximetry O2 Sat by Pulse Oximetry [ Anterior Bilateral Throughout] 09/08/21 09/08/21 09/08/21 02:57 03:02 03:05 Temperature Pulse Rate 104 H 101 H 101 H Respiratory Rate Blood Pressure 126/73 O2 Sat by Pulse 97 98 Oximetry O2 Sat by Pulse Oximetry [ Anterior Bilateral Throughout] 09/08/21 09/08/21 09/08/21 03:07 03:08 03:12 Temperature Pulse Rate 98 H 98 H 96 H Respiratory Rate Blood Pressure 126/73 O2 Sat by Pulse 98 98 Oximetry O2 Sat by Pulse Oximetry [ Anterior Bilateral Throughout] 09/08/21 09/08/21 09/08/21 03:17 03:22 03:27 Temperature Pulse Rate 98 H 95 H 94 H Respiratory Rate Blood Pressure O2 Sat by Pulse 98 98 98 Oximetry O2 Sat by Pulse Oximetry [ Anterior Bilateral Throughout] 09/08/21 09/08/21 09/08/21 03:32 03:37 03:42 Temperature Pulse Rate 94 H 91 H 90 Respiratory Rate Blood Pressure O2 Sat by Pulse 98 98 97 Oximetry O2 Sat by Pulse Oximetry [ Anterior Bilateral Throughout] 09/08/21 09/08/21 09/08/21 03:46 03:52 03:57 Temperature Pulse Rate 89 89 96 H Respiratory Rate Blood Pressure O2 Sat by Pulse 97 97 98 Oximetry O2 Sat by Pulse Oximetry [ Anterior Bilateral Throughout] 09/08/21 09/08/21 09/08/21 04:02 04:04 04:06 Temperature Pulse Rate 90 96 H 91 H Respiratory Rate Blood Pressure 121/71 O2 Sat by Pulse 97 97 Oximetry O2 Sat by Pulse Oximetry [ Anterior Bilateral Throughout] 09/08/21 09/08/21 09/08/21 04:12 04:17 04:22 Temperature Pulse Rate 94 H 93 H 93 H Respiratory Rate Blood Pressure O2 Sat by Pulse 97 97 97 Oximetry O2 Sat by Pulse Oximetry [ Anterior Bilateral Throughout] 09/08/21 09/08/21 09/08/21 04:27 04:32 04:37 Temperature Pulse Rate 104 H 92 H 93 H Respiratory Rate Blood Pressure O2 Sat by Pulse 99 98 98 Oximetry O2 Sat by Pulse Oximetry [ Anterior Bilateral Throughout] 09/08/21 09/08/21 09/08/21 04:42 04:47 04:52 Temperature Pulse Rate 93 H 92 H 92 H Respiratory Rate Blood Pressure O2 Sat by Pulse 98 99 98 Oximetry O2 Sat by Pulse Oximetry [ Anterior Bilateral Throughout] 09/08/21 09/08/21 09/08/21 04:57 05:02 05:04 Temperature Pulse Rate 95 H 95 H 93 H Respiratory Rate Blood Pressure 138/87 O2 Sat by Pulse 99 98 Oximetry O2 Sat by Pulse Oximetry [ Anterior Bilateral Throughout] 09/08/21 09/08/21 09/08/21 05:07 05:12 05:17 Temperature Pulse Rate 89 92 H 90 Respiratory Rate Blood Pressure O2 Sat by Pulse 99 98 98 Oximetry O2 Sat by Pulse Oximetry [ Anterior Bilateral Throughout] 09/08/21 09/08/21 09/08/21 05:22 05:27 05:32 Temperature Pulse Rate 89 90 95 H Respiratory Rate Blood Pressure O2 Sat by Pulse 98 98 98 Oximetry O2 Sat by Pulse Oximetry [ Anterior Bilateral Throughout] 09/08/21 09/08/21 09/08/21 05:37 05:38 05:42 Temperature Pulse Rate 92 H 95 H 92 H Respiratory Rate Blood Pressure O2 Sat by Pulse 98 92 98 Oximetry O2 Sat by Pulse Oximetry [ Anterior Bilateral Throughout] 09/08/21 09/08/21 09/08/21 05:44 05:47 05:52 Temperature Pulse Rate 93 H 97 H 97 H Respiratory Rate Blood Pressure O2 Sat by Pulse 94 94 99 Oximetry O2 Sat by Pulse Oximetry [ Anterior Bilateral Throughout] 09/08/21 09/08/21 09/08/21 05:57 06:01 06:04 Temperature Pulse Rate 94 H 94 H 90 Respiratory Rate Blood Pressure 130/80 O2 Sat by Pulse 93 93 Oximetry O2 Sat by Pulse Oximetry [ Anterior Bilateral Throughout] 09/08/21 09/08/21 09/08/21 06:07 06:12 06:17 Temperature Pulse Rate 89 89 89 Respiratory Rate Blood Pressure O2 Sat by Pulse 98 99 98 Oximetry O2 Sat by Pulse Oximetry [ Anterior Bilateral Throughout] 09/08/21 09/08/21 09/08/21 06:22 06:27 06:32 Temperature Pulse Rate 89 90 89 Respiratory Rate Blood Pressure O2 Sat by Pulse 98 99 98 Oximetry O2 Sat by Pulse Oximetry [ Anterior Bilateral Throughout] 09/08/21 09/08/21 09/08/21 06:37 06:42 06:47 Temperature Pulse Rate 90 110 H 89 Respiratory Rate Blood Pressure O2 Sat by Pulse 98 98 97 Oximetry O2 Sat by Pulse Oximetry [ Anterior Bilateral Throughout] 09/08/21 09/08/21 09/08/21 06:52 06:57 07:02 Temperature 99.2 F Pulse Rate 89 90 98 H Respiratory Rate Blood Pressure O2 Sat by Pulse 97 98 98 Oximetry O2 Sat by Pulse Oximetry [ Anterior Bilateral Throughout] 09/08/21 09/08/21 09/08/21 07:04 07:07 07:12 Temperature Pulse Rate 98 H 93 H 92 H Respiratory Rate Blood Pressure 130/75 O2 Sat by Pulse 98 97 Oximetry O2 Sat by Pulse Oximetry [ Anterior Bilateral Throughout] 09/08/21 09/08/21 09/08/21 07:17 07:22 07:27 Temperature Pulse Rate 89 88 94 H Respiratory Rate Blood Pressure O2 Sat by Pulse 98 98 98 Oximetry O2 Sat by Pulse Oximetry [ Anterior Bilateral Throughout] 09/08/21 09/08/21 09/08/21 07:32 07:37 07:42 Temperature Pulse Rate 97 H 91 H 89 Respiratory Rate Blood Pressure O2 Sat by Pulse 98 98 98 Oximetry O2 Sat by Pulse Oximetry [ Anterior Bilateral Throughout] 09/08/21 09/08/21 09/08/21 07:47 07:52 07:56 Temperature Pulse Rate 88 98 H Respiratory Rate Blood Pressure O2 Sat by Pulse 98 99 Oximetry O2 Sat by Pulse 98 Oximetry [ Anterior Bilateral Throughout] 09/08/21 09/08/21 09/08/21 07:57 08:02 08:04 Temperature 99.1 F Pulse Rate 93 H 100 H 96 H Respiratory 16 Rate Blood Pressure 147/89 O2 Sat by Pulse 98 98 Oximetry O2 Sat by Pulse Oximetry [ Anterior Bilateral Throughout] 09/08/21 09/08/21 09/08/21 08:07 08:12 08:17 Temperature Pulse Rate 94 H 92 H 88 Respiratory Rate Blood Pressure O2 Sat by Pulse 98 98 98 Oximetry O2 Sat by Pulse Oximetry [ Anterior Bilateral Throughout] 09/08/21 09/08/21 09/08/21 08:22 08:27 08:32 Temperature Pulse Rate 90 104 H 101 H Respiratory Rate Blood Pressure O2 Sat by Pulse 98 98 97 Oximetry O2 Sat by Pulse Oximetry [ Anterior Bilateral Throughout] 09/08/21 09/08/21 09/08/21 08:37 08:42 08:47 Temperature Pulse Rate 96 H 100 H 102 H Respiratory Rate Blood Pressure O2 Sat by Pulse 98 98 97 Oximetry O2 Sat by Pulse Oximetry [ Anterior Bilateral Throughout] 09/08/21 09/08/21 09/08/21 08:52 08:57 09:02 Temperature Pulse Rate 95 H 94 H 100 H Respiratory Rate Blood Pressure O2 Sat by Pulse 98 97 99 Oximetry O2 Sat by Pulse Oximetry [ Anterior Bilateral Throughout] 09/08/21 09/08/21 09/08/21 09:04 09:07 09:12 Temperature Pulse Rate 89 91 H 96 H Respiratory Rate Blood Pressure 127/81 O2 Sat by Pulse 98 99 Oximetry O2 Sat by Pulse Oximetry [ Anterior Bilateral Throughout] 09/08/21 09/08/21 09/08/21 09:16 09:22 09:27 Temperature Pulse Rate 95 H 92 H 96 H Respiratory Rate Blood Pressure O2 Sat by Pulse 99 99 98 Oximetry O2 Sat by Pulse Oximetry [ Anterior Bilateral Throughout] 09/08/21 09/08/21 09/08/21 09:32 09:33 09:34 Temperature Pulse Rate 92 H 94 H 94 H Respiratory Rate Blood Pressure 133/82 133/82 O2 Sat by Pulse 98 Oximetry O2 Sat by Pulse Oximetry [ Anterior Bilateral Throughout] 09/08/21 09/08/21 09/08/21 09:37 09:42 09:47 Temperature Pulse Rate 94 H 93 H 91 H Respiratory Rate Blood Pressure O2 Sat by Pulse 98 98 100 Oximetry O2 Sat by Pulse Oximetry [ Anterior Bilateral Throughout] 09/08/21 09/08/21 09/08/21 09:52 09:57 10:02 Temperature Pulse Rate 88 90 89 Respiratory Rate Blood Pressure O2 Sat by Pulse 99 99 99 Oximetry O2 Sat by Pulse Oximetry [ Anterior Bilateral Throughout] 09/08/21 09/08/21 09/08/21 10:04 10:07 10:12 Temperature Pulse Rate 87 91 H 92 H Respiratory Rate Blood Pressure 136/82 O2 Sat by Pulse 99 99 Oximetry O2 Sat by Pulse Oximetry [ Anterior Bilateral Throughout] 09/08/21 09/08/21 09/08/21 10:17 10:22 10:27 Temperature Pulse Rate 89 91 H 89 Respiratory Rate Blood Pressure O2 Sat by Pulse 98 98 98 Oximetry O2 Sat by Pulse Oximetry [ Anterior Bilateral Throughout] 09/08/21 09/08/21 09/08/21 10:32 10:37 10:42 Temperature Pulse Rate 89 99 H 92 H Respiratory Rate Blood Pressure O2 Sat by Pulse 98 98 98 Oximetry O2 Sat by Pulse Oximetry [ Anterior Bilateral Throughout] 09/08/21 09/08/21 09/08/21 10:47 10:52 10:57 Temperature Pulse Rate 93 H 94 H 94 H Respiratory Rate Blood Pressure O2 Sat by Pulse 98 98 98 Oximetry O2 Sat by Pulse Oximetry [ Anterior Bilateral Throughout] 09/08/21 09/08/21 09/08/21 11:02 11:04 11:07 Temperature Pulse Rate 95 H 93 H 96 H Respiratory Rate Blood Pressure 120/65 O2 Sat by Pulse 98 98 Oximetry O2 Sat by Pulse Oximetry [ Anterior Bilateral Throughout] 09/08/21 09/08/21 09/08/21 11:12 11:17 11:22 Temperature Pulse Rate 95 H 94 H 95 H Respiratory Rate Blood Pressure O2 Sat by Pulse 98 96 97 Oximetry O2 Sat by Pulse Oximetry [ Anterior Bilateral Throughout] 09/08/21 09/08/21 11:27 11:32 Temperature Pulse Rate 96 H 102 H Respiratory Rate Blood Pressure O2 Sat by Pulse 97 98 Oximetry O2 Sat by Pulse Oximetry [ Anterior Bilateral Throughout] General appearance: Present: no acute distress - Neck Neck: normal ROM - Respiratory Respiratory effort: normal - Breasts Breasts: deferred Extremities: No edema - Gastrointestinal General gastrointestinal: Present: soft, non-tender - Genitourinary Female genitourinary: other (non-tender gravid) - Integumentary Integumentary: warm, dry - Neurologic Neurologic: moves all extremities - Psychiatric Psychiatric: cooperative - Labs CBC & Chem 7: 09/05/21 18:40 09/05/21 18:40 Labs: Abnormal lab results 09/08/21 09/08/21 Range/Units 00:49 07:28 Magnesium 5.20 H 5.40 H (1.7-2.3) mg/dL Medications & Allergies - Medications Allergies/Adverse Reactions: Allergies No Known Allergies Allergy (Verified 09/07/21 09:38) Home Medications: Home Medications Medication Instructions Recorded Confirmed Last Taken Type No Known Home Medications [No 09/08/21 09/08/21 Unknown History Reported Home Medications] Active Medications: Generic Name Dose Route Start Last Admin Trade Name Meng PRN Reason Stop Dose Admin Acetaminophen 650 mg 09/05/21 18:56 09/05/21 20:21 Acetaminophen 325 Mg Tab PO 650 mg Q4H PRN Administration Pain, Mild (1-3) Aspirin 81 mg 09/08/21 10:00 09/08/21 09:33 Aspirin Ec 81 Mg Tab PO 81 mg QDAY SHERYL Administration Hydralazine HCl 10 mg 09/06/21 06:18 Hydralazine 20 Mg/1 Ml Inj IV ONCE PRN Blood Pressure Lactated Ringer's 1,000 mls @ 125 mls/hr 09/05/21 19:00 09/06/21 04:40 Lactated Ringers IV 125 mls/hr DIRECT SHERYL Administration Magnesium Sulfate 40 gm in 1,000 mls @ 25 mls/hr 09/07/21 17:00 09/08/21 05:00 Magnesium Sulfate 40gm/1000ml IV 09/08/21 17:00 1 gm/hr DIRECT SHERYL 25 mls/hr Infusion 1 GM/HR Labetalol HCl 20 mg 09/06/21 05:54 09/07/21 11:06 Labetalol 20 Mg/4 Ml Inj IV 20 mg ONCE PRN Administration Blood Pressure Labetalol HCl 40 mg 09/06/21 06:12 Labetalol 100 Mg/20 Ml Inj Mdv IV ONCE PRN Blood Pressure Labetalol HCl 80 mg 09/06/21 06:15 Labetalol 100 Mg/20 Ml Inj Mdv IV ONCE PRN Blood Pressure Labetalol HCl 100 mg 09/07/21 18:00 09/08/21 09:33 Labetalol 100 Mg Tab PO 100 mg Q8H SHERYL Administration Labetalol HCl 200 mg 09/07/21 18:00 09/08/21 09:34 Labetalol 200 Mg Tab PO 200 mg Q8H SHERYL Administration
[2021-09-08] MEDS: LACTATED RINGERS 1,000 ML IV SCH (13:26)
--- NOTE | 2021-09-08 13:47 | Consultation ---
History of Present Illness Consult date: 09/08/21 Requesting physician: EVANGELINA LOBO Reason for consult: gestational hypertension History of present illness: To: Dr. Evangelina Lobo, et al From: Rossy Dyson M.D. RE: Riya Patel (: 80 ) IUP at 29 weeks 5 days, Chronic hypertension. Headache 24 hour urine: 858 gm protein Rule out superimposed preeclampsia vs. CHTN growth restriction: EFW at 5% and AC at 3.7% Labile blood pressure Hospital day # 3 Low threshold for delivery Date: September CURRENT PRESENTATION: Thank you for your recent consultation regarding the above named patient. As you are aware, this is a 41 year old para 1001 who is currently at 29 weeks 5 day admitted with elevated blood pressure. Patient indicates that she was diagnosed with chronic hypertension in her last . The plan is for continued hospitalization and delivery for any evidence of severe preeclampsia or refractory hypertension. CURRENT PRESENTATION: The patient denies headache, dizziness or blurred vision. Her FHR tracing is category 1. PAST OBSTETRICAL HISTORY See notes in patient's chart [facility] ultrasonography See notes in patient's chart Most recent blood pressures: See notes in chart. Available Admission Labs: See reports in patients hospital chart Past History Past Medical History: hypertension - Obstetrical History : 2 Medications and Allergies Allergies Allergy/AdvReac Type Severity Reaction Status Date / Time No Known Allergies Allergy Verified 09/07/21 09:38 Home Medications Medication Instructions Recorded Confirmed Last Taken Type No Known Home Medications [No 09/08/21 09/08/21 Unknown History Reported Home Medications] Active Meds: Active Medications Acetaminophen (Acetaminophen 325 Mg Tab) 650 mg PO Q4H PRN PRN Reason: Pain, Mild (1-3) Last Admin: 09/05/21 20:21 Dose: 650 mg Aspirin (Aspirin Ec 81 Mg Tab) 81 mg PO QDAY SHERYL Last Admin: 09/08/21 09:33 Dose: 81 mg Hydralazine HCl (Hydralazine 20 Mg/1 Ml Inj) 10 mg IV ONCE PRN PRN Reason: Blood Pressure Lactated Ringer's (Lactated Ringers) 1,000 mls @ 125 mls/hr IV DIRECT SHERYL Last Admin: 09/08/21 13:26 Dose: 100 mls/hr Magnesium Sulfate (Magnesium Sulfate 40gm/1000ml) 40 gm in 1,000 mls @ 25 mls/hr IV DIRECT SHERYL Stop: 09/08/21 17:00 Last Infusion: 09/08/21 05:00 Dose: 1 gm/hr, 25 mls/hr Labetalol HCl (Labetalol 20 Mg/4 Ml Inj) 20 mg IV ONCE PRN PRN Reason: Blood Pressure Last Admin: 09/07/21 11:06 Dose: 20 mg Labetalol HCl (Labetalol 100 Mg/20 Ml Inj Mdv) 40 mg IV ONCE PRN PRN Reason: Blood Pressure Labetalol HCl (Labetalol 100 Mg/20 Ml Inj Mdv) 80 mg IV ONCE PRN PRN Reason: Blood Pressure Labetalol HCl (Labetalol 100 Mg Tab) 100 mg PO Q8H [facility] Last Admin: 09/08/21 09:33 Dose: 100 mg Labetalol HCl (Labetalol 200 Mg Tab) 200 mg PO Q8H [facility] [place] Last Admin: 09/08/21 09:34 Dose: 200 mg - Vital Signs Vital signs: Vital Signs Pulse Pulse Ox 89 99 09/05/21 18:06 09/05/21 18:06 Temp Pulse Resp BP Pulse Ox 98.1 F 91 H 16 132/80 99 09/08/21 12:00 09/08/21 13:42 09/08/21 12:00 09/08/21 13:04 09/08/21 13:42 Results Result Diagrams: 09/05/21 18:40 09/05/21 18:40 Abnormal lab results 09/08/21 09/08/21 09/08/21 Range/Units 00:49 07:28 12:14 Magnesium 5.20 H 5.40 H 5.00 H (1.7-2.3) mg/dL All other labs normal. Assessment and Plan ASSESSMENT IUP at 29 weeks 5 days, Chronic hypertension. Headache 24 hour urine: 858 gm protein Rule out superimposed preeclampsia vs. CHTN growth restriction: EFW at 5% and AC at 3.7% Labile blood pressure Hospital day # 3 Low threshold for delivery RECOMMENDATIONS: 1. Patients blood pressure has stabilized and a review of her urine protein/creatinine ratio suggest poorly controlled CHTN; however given her BP on presentation and history of noncompliance she is NOT a candidate for outpatient care. 2. Additionally, it is certainly possible that she may have an indication for delivery in the over the next 24-48 hours. 3. She remains at risk for adverse outcomes associated with superimposed preeclampsia AND CHTN 4. Given her gestational age we would recommend DELIVERY only IF the patient had signs of unambiguously SEVERE preeclampsia. 5. Steroids for lung development and magnesium sulfate for neuroprotection and eclampsia prophylaxis. - DONE . 6. Agree with current antihypertensive medications 7. Observe for improvement in blood pressure. 8. If the patient develops any of the criteria for delivery (see below) during observation we would recommend taking steps to deliver this . 9. Agree with admission for serial BP, urinalysis, PIH labs and observation. 10. Kindly contact [facility] if there is any question as to whether this patient is a candidate for delivery. 11. At 29-30 weeks gestation; it would appear that there is limited benefit to an expectant management protocol to prolong gestation in order to improve outcome without increasing maternal morbidity. 12. In a patient with MILD preeclampsia we recommend DELIVERY at 37 weeks. 13. In a patient with SEVERE preeclampsia we recommend DELIVERY either AT DIAGNOSIS or at 34 weeks gestation. 14. Additionally: a. Chronic hypertension difficult to control requiring frequent medication adjustments is: late /early term 36 weeks zero days until 37 weeks six days. b. Preeclampsia with severe features, stable maternal and conditions and after viability (includes superimposed) Late . 34 weeks and 0 days or at diagnosis if diagnosed later c. Preeclampsia with severe features unstable or complicated after viability (includes superimposed and HELLP). Soon after stabilization. 15. REFERENCE: Medically indicated late- and early- term deliveries. ACOG Committee Opinion No. [id number]. [employer]. Obstet Gynecol 2020;137:[id number]. 16. The indications for discontinuation of expectant management and DELIVERY in this patient would include ANY of the following: heart rate abnormalities, (ie, bradycardia , repetitive late or variable decelerations) Significant new onset proteinuria (see above) Thrombocytopenia Hemolysis, Elevation in liver function tests Blood pressure that is very labile or poorly controlled with reasonable doses of intravenous labetalol Symptoms of severe pre-eclampsia epigastric discomfort, headache, dizziness, blurred vision, RUQ pain, seizure. Standard obstetrical indications Thank you for allowing us to participate in the care of this patient. We look forward to the opportunity to assist in her continued management. If you have any questions, we may be reached [phone]. Rossy Dyson M.D.
[2021-09-09] MEDS: ASPIRIN EC 81 MG TAB PO SCH (10:14)
--- NOTE | 2021-09-09 10:28 | Ultrasound Report ---
ULTRASOUND OBSTETRIC LIMITED ULTRASOUND BIOPHYSICAL PROFILE INDICATION / CLINICAL INFORMATION: chronic HTN, superimposed preeclampsia. COMPARISON: None available. FINDINGS: BREATHING MOVEMENT = 0 GROSS BODY MOVEMENT = 2 TONE = 2 QUALITATIVE AMNIOTIC FLUID VOLUME = 2 TOTAL BIOPHYSICAL SCORE = 6/8 HEART RATE (beats per minute): 145 AMNIOTIC FLUID INDEX (cm) = 16.2 (normal = 7-24 cm) PRESENTATION: Cephalic. ADDITIONAL FINDINGS: There appears to be mild bilateral hydronephrosis. IMPRESSION: 1. Biophysical Score = 8/8 2. There appears to be mild bilateral hydronephrosis. Signer Name: Jorgito Lopez MD Signed: 09/09/2021 10:24 AM Workstation Name: [employer]
--- NOTE | 2021-09-09 10:42 | Progress Note ---
Subjective - Subjective Date of service: 09/09/21 Principal diagnosis: IUP at 29.4wks with chronic HTN, mild preeclampsia Interval history: 41-year-old -0-0-1 at 29 point 6/7 weeks with AUDREY 11/19/2021 by ultrasound presents with elevated blood pressures and headache. Patient of Central : Plan for evaluation of chronic hypertension with possible superimposed preeclampsia. At bedside patient is awake alert and oriented x3. She has no complaints. She admits to good movement. 24-hour urine protein collection completed over 800mgdl. Review of blood pressures reveals a BP range of 180/100-130s/ 80s in the past 24 hours. Patient has had 2 recorded severe blood pressure ranges over 160/110 in the last 24 hours. labetalol to 300 mg p.o. q 8 hours. PIH labs stable. Plan for OB ultrasound for structural survey given a positive AFP. APA consult in place. Will use IV antihypertensive for breakthrough severe range blood pressures per acog emergent hypertension algorithm. Continue expectant management, patient has completed steroids. Intermittent monitoring category 1. Maternal and status reassuring overall Luther Philip MD Objective - Vital Signs Vital Signs: Vital Signs - 12hr 09/08/21 09/08/21 09/08/21 22:42 22:47 22:52 Temperature Pulse Rate 85 94 H 86 Respiratory Rate Blood Pressure O2 Sat by Pulse 98 100 98 Oximetry O2 Sat by Pulse Oximetry [ Anterior Bilateral Throughout] 09/08/21 09/08/21 09/08/21 22:57 23:02 23:04 Temperature Pulse Rate 87 84 88 Respiratory Rate Blood Pressure 155/89 O2 Sat by Pulse 99 97 94 Oximetry O2 Sat by Pulse Oximetry [ Anterior Bilateral Throughout] 09/08/21 09/08/21 09/08/21 23:07 23:12 23:17 Temperature Pulse Rate 84 92 H 86 Respiratory Rate Blood Pressure O2 Sat by Pulse 98 97 98 Oximetry O2 Sat by Pulse Oximetry [ Anterior Bilateral Throughout] 09/08/21 09/08/21 09/08/21 23:22 23:23 23:27 Temperature Pulse Rate 87 87 85 Respiratory Rate Blood Pressure O2 Sat by Pulse 99 93 98 Oximetry O2 Sat by Pulse Oximetry [ Anterior Bilateral Throughout] 09/08/21 09/08/21 09/08/21 23:30 23:32 23:36 Temperature Pulse Rate 90 97 H 83 Respiratory Rate Blood Pressure O2 Sat by Pulse 93 98 93 Oximetry O2 Sat by Pulse Oximetry [ Anterior Bilateral Throughout] 09/08/21 09/09/21 09/09/21 23:37 00:01 00:04 Temperature Pulse Rate 92 H 91 H 95 H Respiratory Rate Blood Pressure 131/100 O2 Sat by Pulse 96 100 94 Oximetry O2 Sat by Pulse Oximetry [ Anterior Bilateral Throughout] 09/09/21 09/09/21 09/09/21 00:06 00:11 00:16 Temperature Pulse Rate 89 88 87 Respiratory Rate Blood Pressure O2 Sat by Pulse 98 99 99 Oximetry O2 Sat by Pulse Oximetry [ Anterior Bilateral Throughout] 09/09/21 09/09/21 09/09/21 00:21 00:26 00:31 Temperature Pulse Rate 86 88 85 Respiratory Rate Blood Pressure O2 Sat by Pulse 98 99 99 Oximetry O2 Sat by Pulse Oximetry [ Anterior Bilateral Throughout] 09/09/21 09/09/21 09/09/21 00:36 00:41 00:46 Temperature Pulse Rate 90 85 83 Respiratory Rate Blood Pressure O2 Sat by Pulse 99 98 99 Oximetry O2 Sat by Pulse Oximetry [ Anterior Bilateral Throughout] 09/09/21 09/09/21 09/09/21 00:51 00:56 01:01 Temperature Pulse Rate 84 84 87 Respiratory Rate Blood Pressure O2 Sat by Pulse 98 98 98 Oximetry O2 Sat by Pulse Oximetry [ Anterior Bilateral Throughout] 09/09/21 09/09/21 09/09/21 01:04 01:06 01:11 Temperature Pulse Rate 81 87 87 Respiratory Rate Blood Pressure 141/83 O2 Sat by Pulse 99 98 Oximetry O2 Sat by Pulse Oximetry [ Anterior Bilateral Throughout] 09/09/21 09/09/21 09/09/21 01:16 01:21 01:26 Temperature Pulse Rate 82 89 94 H Respiratory Rate Blood Pressure O2 Sat by Pulse 98 98 98 Oximetry O2 Sat by Pulse Oximetry [ Anterior Bilateral Throughout] 09/09/21 09/09/21 09/09/21 01:31 01:36 01:41 Temperature Pulse Rate 82 84 92 H Respiratory Rate Blood Pressure O2 Sat by Pulse 97 99 97 Oximetry O2 Sat by Pulse Oximetry [ Anterior Bilateral Throughout] 09/09/21 09/09/21 09/09/21 01:46 01:51 01:56 Temperature Pulse Rate 91 H 82 91 H Respiratory Rate Blood Pressure O2 Sat by Pulse 98 98 98 Oximetry O2 Sat by Pulse Oximetry [ Anterior Bilateral Throughout] 09/09/21 09/09/21 09/09/21 02:08 02:13 02:18 Temperature Pulse Rate 84 83 84 Respiratory Rate Blood Pressure O2 Sat by Pulse 99 99 99 Oximetry O2 Sat by Pulse Oximetry [ Anterior Bilateral Throughout] 09/09/21 09/09/21 09/09/21 02:23 02:28 02:33 Temperature Pulse Rate 87 96 H 99 H Respiratory Rate Blood Pressure O2 Sat by Pulse 99 100 99 Oximetry O2 Sat by Pulse Oximetry [ Anterior Bilateral Throughout] 09/09/21 09/09/21 09/09/21 02:38 02:43 02:48 Temperature Pulse Rate 84 85 94 H Respiratory Rate Blood Pressure O2 Sat by Pulse 99 98 98 Oximetry O2 Sat by Pulse Oximetry [ Anterior Bilateral Throughout] 09/09/21 09/09/21 09/09/21 02:53 02:58 03:03 Temperature Pulse Rate 88 86 85 Respiratory Rate Blood Pressure O2 Sat by Pulse 98 98 98 Oximetry O2 Sat by Pulse Oximetry [ Anterior Bilateral Throughout] 09/09/21 09/09/21 09/09/21 03:04 03:08 03:13 Temperature Pulse Rate 85 86 84 Respiratory Rate Blood Pressure 137/75 O2 Sat by Pulse 98 98 Oximetry O2 Sat by Pulse Oximetry [ Anterior Bilateral Throughout] 09/09/21 09/09/21 09/09/21 03:18 03:23 03:28 Temperature Pulse Rate 84 84 92 H Respiratory Rate Blood Pressure O2 Sat by Pulse 97 98 97 Oximetry O2 Sat by Pulse Oximetry [ Anterior Bilateral Throughout] 09/09/21 09/09/21 09/09/21 03:33 03:38 03:43 Temperature Pulse Rate 85 81 92 H Respiratory Rate Blood Pressure O2 Sat by Pulse 98 98 98 Oximetry O2 Sat by Pulse Oximetry [ Anterior Bilateral Throughout] 09/09/21 09/09/21 09/09/21 03:48 03:53 03:58 Temperature Pulse Rate 83 85 95 H Respiratory Rate Blood Pressure O2 Sat by Pulse 98 98 98 Oximetry O2 Sat by Pulse Oximetry [ Anterior Bilateral Throughout] 09/09/21 09/09/21 09/09/21 04:03 04:04 04:08 Temperature Pulse Rate 87 88 88 Respiratory Rate Blood Pressure 150/83 O2 Sat by Pulse 97 98 Oximetry O2 Sat by Pulse Oximetry [ Anterior Bilateral Throughout] 09/09/21 09/09/21 09/09/21 04:13 04:18 04:23 Temperature Pulse Rate 80 96 H 88 Respiratory Rate Blood Pressure O2 Sat by Pulse 99 98 99 Oximetry O2 Sat by Pulse Oximetry [ Anterior Bilateral Throughout] 09/09/21 09/09/21 09/09/21 04:28 04:33 04:38 Temperature Pulse Rate 81 86 83 Respiratory Rate Blood Pressure O2 Sat by Pulse 98 98 98 Oximetry O2 Sat by Pulse Oximetry [ Anterior Bilateral Throughout] 09/09/21 09/09/21 09/09/21 04:43 04:48 04:53 Temperature Pulse Rate 86 84 84 Respiratory Rate Blood Pressure O2 Sat by Pulse 98 97 99 Oximetry O2 Sat by Pulse Oximetry [ Anterior Bilateral Throughout] 09/09/21 09/09/21 09/09/21 04:58 05:03 05:04 Temperature Pulse Rate 90 84 86 Respiratory Rate Blood Pressure 174/90 O2 Sat by Pulse 99 98 94 Oximetry O2 Sat by Pulse Oximetry [ Anterior Bilateral Throughout] 09/09/21 09/09/21 09/09/21 05:08 05:10 05:13 Temperature Pulse Rate 101 H 83 84 Respiratory Rate Blood Pressure 162/90 O2 Sat by Pulse 96 99 Oximetry O2 Sat by Pulse Oximetry [ Anterior Bilateral Throughout] 09/09/21 09/09/21 09/09/21 05:18 05:23 05:28 Temperature Pulse Rate 79 87 79 Respiratory Rate Blood Pressure O2 Sat by Pulse 99 99 99 Oximetry O2 Sat by Pulse Oximetry [ Anterior Bilateral Throughout] 09/09/21 09/09/21 09/09/21 05:33 05:38 05:43 Temperature Pulse Rate 88 78 81 Respiratory Rate Blood Pressure O2 Sat by Pulse 99 99 98 Oximetry O2 Sat by Pulse Oximetry [ Anterior Bilateral Throughout] 09/09/21 09/09/21 09/09/21 05:48 05:53 05:58 Temperature Pulse Rate 79 82 77 Respiratory Rate Blood Pressure O2 Sat by Pulse 98 99 98 Oximetry O2 Sat by Pulse Oximetry [ Anterior Bilateral Throughout] 09/09/21 09/09/21 09/09/21 06:03 06:04 06:08 Temperature Pulse Rate 80 83 82 Respiratory Rate Blood Pressure 157/85 O2 Sat by Pulse 98 99 Oximetry O2 Sat by Pulse Oximetry [ Anterior Bilateral Throughout] 09/09/21 09/09/21 09/09/21 06:13 06:18 06:23 Temperature Pulse Rate 91 H 83 83 Respiratory Rate Blood Pressure O2 Sat by Pulse 98 97 98 Oximetry O2 Sat by Pulse Oximetry [ Anterior Bilateral Throughout] 09/09/21 09/09/21 09/09/21 06:28 06:33 06:38 Temperature Pulse Rate 81 86 102 H Respiratory Rate Blood Pressure O2 Sat by Pulse 98 98 98 Oximetry O2 Sat by Pulse Oximetry [ Anterior Bilateral Throughout] 09/09/21 09/09/21 09/09/21 06:43 06:48 06:53 Temperature Pulse Rate 84 90 81 Respiratory Rate Blood Pressure O2 Sat by Pulse 99 99 98 Oximetry O2 Sat by Pulse Oximetry [ Anterior Bilateral Throughout] 09/09/21 09/09/21 09/09/21 06:58 07:03 07:04 Temperature Pulse Rate 81 78 83 Respiratory Rate Blood Pressure 148/73 O2 Sat by Pulse 98 98 Oximetry O2 Sat by Pulse Oximetry [ Anterior Bilateral Throughout] 09/09/21 09/09/21 09/09/21 07:08 07:13 07:18 Temperature Pulse Rate 86 77 80 Respiratory Rate Blood Pressure O2 Sat by Pulse 98 99 97 Oximetry O2 Sat by Pulse Oximetry [ Anterior Bilateral Throughout] 09/09/21 09/09/21 09/09/21 07:23 07:28 07:33 Temperature Pulse Rate 79 78 70 Respiratory Rate Blood Pressure O2 Sat by Pulse 99 98 98 Oximetry O2 Sat by Pulse Oximetry [ Anterior Bilateral Throughout] 09/09/21 09/09/21 09/09/21 07:38 07:43 07:48 Temperature Pulse Rate 77 91 H 79 Respiratory Rate Blood Pressure O2 Sat by Pulse 99 99 98 Oximetry O2 Sat by Pulse Oximetry [ Anterior Bilateral Throughout] 09/09/21 09/09/21 09/09/21 07:53 07:55 07:58 Temperature 98.2 F Pulse Rate 88 86 Respiratory 18 Rate Blood Pressure 142/70 O2 Sat by Pulse 99 98 97 Oximetry O2 Sat by Pulse Oximetry [ Anterior Bilateral Throughout] 09/09/21 09/09/21 09/09/21 08:03 08:04 08:08 Temperature Pulse Rate 83 85 82 Respiratory Rate Blood Pressure 142/75 O2 Sat by Pulse 99 97 Oximetry O2 Sat by Pulse Oximetry [ Anterior Bilateral Throughout] 09/09/21 09/09/21 09/09/21 08:13 08:18 08:23 Temperature Pulse Rate 81 95 H 80 Respiratory Rate Blood Pressure O2 Sat by Pulse 98 98 98 Oximetry O2 Sat by Pulse Oximetry [ Anterior Bilateral Throughout] 09/09/21 09/09/21 09/09/21 08:28 08:33 08:38 Temperature Pulse Rate 83 83 92 H Respiratory Rate Blood Pressure O2 Sat by Pulse 97 98 98 Oximetry O2 Sat by Pulse Oximetry [ Anterior Bilateral Throughout] 09/09/21 09/09/21 09/09/21 08:43 08:48 08:53 Temperature Pulse Rate 83 84 76 Respiratory Rate Blood Pressure O2 Sat by Pulse 99 97 97 Oximetry O2 Sat by Pulse Oximetry [ Anterior Bilateral Throughout] 09/09/21 09/09/21 09/09/21 09:49 09:51 09:54 Temperature Pulse Rate 87 86 95 H Respiratory Rate Blood Pressure 158/87 O2 Sat by Pulse 97 98 Oximetry O2 Sat by Pulse Oximetry [ Anterior Bilateral Throughout] 09/09/21 09/09/21 09/09/21 09:59 10:04 10:09 Temperature Pulse Rate 90 86 85 Respiratory Rate Blood Pressure 151/86 O2 Sat by Pulse 98 97 99 Oximetry O2 Sat by Pulse 98 Oximetry [ Anterior Bilateral Throughout] 09/09/21 09/09/21 09/09/21 10:14 10:19 10:24 Temperature Pulse Rate 79 91 H 80 Respiratory Rate Blood Pressure O2 Sat by Pulse 98 99 99 Oximetry O2 Sat by Pulse Oximetry [ Anterior Bilateral Throughout] 09/09/21 09/09/21 09/09/21 10:29 10:34 10:39 Temperature Pulse Rate 83 84 90 Respiratory Rate Blood Pressure O2 Sat by Pulse 99 99 98 Oximetry O2 Sat by Pulse Oximetry [ Anterior Bilateral Throughout] - Labs Labs: Abnormal Labs 09/05/21 09/05/21 09/05/21 18:40 18:40 21:50 RDW 16.3 H Creatinine 0.5 L Magnesium Lactate Dehydrogenase 275 H Ur Total Protein 24 Hr 858.00 H Urine Total Protein 39 H 09/08/21 09/08/21 09/08/21 00:49 07:28 12:14 RDW Creatinine Magnesium 5.20 H 5.40 H 5.00 H Lactate Dehydrogenase Ur Total Protein 24 Hr Urine Total Protein 09/08/21 18:45 RDW Creatinine Magnesium 4.20 H Lactate Dehydrogenase Ur Total Protein 24 Hr Urine Total Protein Laboratory Results - last 24 hr 09/08/21 09/08/21 12:14 18:45 Magnesium 5.00 H 4.20 H
[2021-09-09] MEDS: LACTATED RINGERS 1,000 ML IV SCH (14:27)
--- NOTE | 2021-09-09 19:00 | Ultrasound Report ---
Of the ultrasound umbilical artery INDICATION: Evaluate port Doppler FINDINGS: heart rate 1 49 bpm. Normal waveform with SD ratio averages 3.5. Persistent. Resistiv e index appears normal with normal waveform and persistent. IMPRESSION: Normal cord Doppler. Signer Name: Jesus Chamorro MD Signed: 09/09/2021 6:56 PM Workstation Name: [id number]
--- NOTE | 2021-09-10 08:14 | Progress Note ---
Subjective - Subjective Date of service: 09/10/21 Principal diagnosis: IUP at 29.4wks with chronic HTN, mild preeclampsia Interval history: 41-year-old -0-0-1 at 30.0 weeks with AUDREY 11/19/2021 by ultrasound presents with elevated blood pressures and headache. Patient of Central : Plan for evaluation of chronic hypertension with possible superimposed preeclampsia. At bedside patient is awake alert and oriented x3. She has no complaints. She admits to good movement. 24-hour urine protein collection completed over 800mgdl. Review of blood pressures reveals a BP range of 160/90-130s/ 80s in the past 24 hours. Patient has required no IV antihypertensive for the breakthrough severe range blood pressures in the last 24 hours. labetalol to 300 mg p.o. q 8 hours. PIH labs stable. Antepartum testing today reassuring overall with positive FGR Appreciate APA comanagement Will use IV antihypertensive for breakthrough severe range blood pressures per acog emergent hypertension algorithm. Continue expectant management, patient has completed steroids. Intermittent monitoring category 1. Maternal and status reassuring overall Luther Philip MD Objective - Vital Signs Vital Signs: Vital Signs - 12hr 09/09/21 09/09/21 09/09/21 21:32 21:37 21:42 Temperature Pulse Rate 104 H 93 H 93 H Blood Pressure Blood Pressure [Left] Blood Pressure [Right] O2 Sat by Pulse 99 97 97 Oximetry O2 Sat by Pulse Oximetry [ Anterior Bilateral Throughout] 09/09/21 09/09/21 09/09/21 21:47 21:52 21:57 Temperature Pulse Rate 87 89 94 H Blood Pressure Blood Pressure [Left] Blood Pressure [Right] O2 Sat by Pulse 99 98 99 Oximetry O2 Sat by Pulse Oximetry [ Anterior Bilateral Throughout] 09/09/21 09/09/21 09/09/21 22:02 22:07 22:12 Temperature Pulse Rate 88 85 87 Blood Pressure Blood Pressure [Left] Blood Pressure [Right] O2 Sat by Pulse 99 98 98 Oximetry O2 Sat by Pulse Oximetry [ Anterior Bilateral Throughout] 09/09/21 09/09/21 09/09/21 22:17 22:22 22:27 Temperature Pulse Rate 92 H 90 83 Blood Pressure Blood Pressure [Left] Blood Pressure [Right] O2 Sat by Pulse 99 98 99 Oximetry O2 Sat by Pulse Oximetry [ Anterior Bilateral Throughout] 09/09/21 09/09/21 09/09/21 22:32 22:37 22:42 Temperature Pulse Rate 94 H 85 88 Blood Pressure Blood Pressure [Left] Blood Pressure [Right] O2 Sat by Pulse 99 99 99 Oximetry O2 Sat by Pulse Oximetry [ Anterior Bilateral Throughout] 09/09/21 09/09/21 09/09/21 22:47 22:52 22:57 Temperature Pulse Rate 88 93 H 91 H Blood Pressure Blood Pressure [Left] Blood Pressure [Right] O2 Sat by Pulse 98 98 99 Oximetry O2 Sat by Pulse Oximetry [ Anterior Bilateral Throughout] 09/09/21 09/09/21 09/09/21 23:02 23:07 23:12 Temperature Pulse Rate 85 94 H 83 Blood Pressure Blood Pressure [Left] Blood Pressure [Right] O2 Sat by Pulse 99 99 99 Oximetry O2 Sat by Pulse Oximetry [ Anterior Bilateral Throughout] 09/09/21 09/09/21 09/09/21 23:17 23:22 23:27 Temperature Pulse Rate 80 84 88 Blood Pressure Blood Pressure [Left] Blood Pressure [Right] O2 Sat by Pulse 100 99 99 Oximetry O2 Sat by Pulse Oximetry [ Anterior Bilateral Throughout] 09/09/21 09/09/21 09/09/21 23:32 23:37 23:42 Temperature Pulse Rate 80 84 94 H Blood Pressure Blood Pressure [Left] Blood Pressure [Right] O2 Sat by Pulse 98 99 99 Oximetry O2 Sat by Pulse Oximetry [ Anterior Bilateral Throughout] 09/09/21 09/09/21 09/09/21 23:47 23:52 23:57 Temperature Pulse Rate 90 92 H 84 Blood Pressure Blood Pressure [Left] Blood Pressure [Right] O2 Sat by Pulse 99 100 99 Oximetry O2 Sat by Pulse Oximetry [ Anterior Bilateral Throughout] 09/10/21 09/10/21 09/10/21 00:02 00:07 00:12 Temperature Pulse Rate 86 86 96 H Blood Pressure Blood Pressure [Left] Blood Pressure [Right] O2 Sat by Pulse 99 99 100 Oximetry O2 Sat by Pulse Oximetry [ Anterior Bilateral Throughout] 09/10/21 09/10/21 09/10/21 00:17 00:22 00:27 Temperature Pulse Rate 88 95 H 80 Blood Pressure Blood Pressure [Left] Blood Pressure [Right] O2 Sat by Pulse 98 99 96 Oximetry O2 Sat by Pulse Oximetry [ Anterior Bilateral Throughout] 09/10/21 09/10/21 09/10/21 00:28 00:32 00:35 Temperature Pulse Rate 105 H 85 100 H Blood Pressure Blood Pressure [Left] Blood Pressure [Right] O2 Sat by Pulse 94 97 91 Oximetry O2 Sat by Pulse Oximetry [ Anterior Bilateral Throughout] 09/10/21 09/10/21 09/10/21 00:37 00:42 00:47 Temperature Pulse Rate 67 83 86 Blood Pressure Blood Pressure [Left] Blood Pressure [Right] O2 Sat by Pulse 97 100 97 Oximetry O2 Sat by Pulse Oximetry [ Anterior Bilateral Throughout] 09/10/21 09/10/21 09/10/21 00:49 00:52 00:57 Temperature Pulse Rate 84 88 85 Blood Pressure Blood Pressure [Left] Blood Pressure [Right] O2 Sat by Pulse 94 99 99 Oximetry O2 Sat by Pulse Oximetry [ Anterior Bilateral Throughout] 09/10/21 09/10/21 09/10/21 01:02 01:07 01:12 Temperature Pulse Rate 88 87 83 Blood Pressure Blood Pressure [Left] Blood Pressure [Right] O2 Sat by Pulse 99 99 99 Oximetry O2 Sat by Pulse Oximetry [ Anterior Bilateral Throughout] 09/10/21 09/10/21 09/10/21 01:17 01:22 01:27 Temperature Pulse Rate 87 85 88 Blood Pressure Blood Pressure [Left] Blood Pressure [Right] O2 Sat by Pulse 99 99 99 Oximetry O2 Sat by Pulse Oximetry [ Anterior Bilateral Throughout] 09/10/21 09/10/21 09/10/21 01:32 01:37 01:42 Temperature Pulse Rate 86 86 85 Blood Pressure Blood Pressure [Left] Blood Pressure [Right] O2 Sat by Pulse 99 99 99 Oximetry O2 Sat by Pulse Oximetry [ Anterior Bilateral Throughout] 09/10/21 09/10/21 09/10/21 01:47 01:52 01:57 Temperature Pulse Rate 85 91 H 87 Blood Pressure Blood Pressure [Left] Blood Pressure [Right] O2 Sat by Pulse 99 98 99 Oximetry O2 Sat by Pulse Oximetry [ Anterior Bilateral Throughout] 09/10/21 09/10/21 09/10/21 02:02 02:06 02:38 Temperature Pulse Rate 83 92 H Blood Pressure 142/83 Blood Pressure [Left] Blood Pressure [Right] O2 Sat by Pulse 99 Oximetry O2 Sat by Pulse 98 Oximetry [ Anterior Bilateral Throughout] 09/10/21 09/10/21 09/10/21 05:51 05:54 05:56 Temperature 98.4 F Pulse Rate 95 H 86 87 Blood Pressure 166/93 135/79 Blood Pressure 135/79 [Left] Blood Pressure 166/93 [Right] O2 Sat by Pulse 99 99 Oximetry O2 Sat by Pulse Oximetry [ Anterior Bilateral Throughout] 09/10/21 09/10/21 09/10/21 06:01 06:06 06:11 Temperature Pulse Rate 84 83 92 H Blood Pressure Blood Pressure [Left] Blood Pressure [Right] O2 Sat by Pulse 100 100 99 Oximetry O2 Sat by Pulse Oximetry [ Anterior Bilateral Throughout] 09/10/21 09/10/21 09/10/21 06:16 06:21 06:26 Temperature Pulse Rate 84 83 82 Blood Pressure Blood Pressure [Left] Blood Pressure [Right] O2 Sat by Pulse 99 98 99 Oximetry O2 Sat by Pulse Oximetry [ Anterior Bilateral Throughout] 09/10/21 09/10/21 09/10/21 06:31 06:36 06:37 Temperature Pulse Rate 83 84 84 Blood Pressure Blood Pressure [Left] Blood Pressure [Right] O2 Sat by Pulse 99 98 92 Oximetry O2 Sat by Pulse Oximetry [ Anterior Bilateral Throughout] 09/10/21 09/10/21 09/10/21 06:41 06:46 06:51 Temperature Pulse Rate 84 85 85 Blood Pressure Blood Pressure [Left] Blood Pressure [Right] O2 Sat by Pulse 99 99 97 Oximetry O2 Sat by Pulse Oximetry [ Anterior Bilateral Throughout] 09/10/21 09/10/21 09/10/21 06:56 07:01 07:06 Temperature Pulse Rate 85 83 83 Blood Pressure Blood Pressure [Left] Blood Pressure [Right] O2 Sat by Pulse 99 98 99 Oximetry O2 Sat by Pulse Oximetry [ Anterior Bilateral Throughout] 09/10/21 09/10/21 09/10/21 07:11 07:16 07:21 Temperature Pulse Rate 86 82 82 Blood Pressure Blood Pressure [Left] Blood Pressure [Right] O2 Sat by Pulse 99 99 98 Oximetry O2 Sat by Pulse Oximetry [ Anterior Bilateral Throughout] 09/10/21 09/10/21 09/10/21 07:26 07:36 07:41 Temperature Pulse Rate 82 89 85 Blood Pressure Blood Pressure [Left] Blood Pressure [Right] O2 Sat by Pulse 99 98 100 Oximetry O2 Sat by Pulse Oximetry [ Anterior Bilateral Throughout] 09/10/21 09/10/21 09/10/21 07:46 07:51 07:56 Temperature Pulse Rate 90 98 H 97 H Blood Pressure Blood Pressure [Left] Blood Pressure [Right] O2 Sat by Pulse 98 99 98 Oximetry O2 Sat by Pulse Oximetry [ Anterior Bilateral Throughout] 09/10/21 09/10/21 09/10/21 08:01 08:06 08:11 Temperature Pulse Rate 91 H 96 H 91 H Blood Pressure Blood Pressure [Left] Blood Pressure [Right] O2 Sat by Pulse 99 98 99 Oximetry O2 Sat by Pulse Oximetry [ Anterior Bilateral Throughout] - Labs Labs: Abnormal Labs 09/05/21 09/05/21 09/05/21 18:40 18:40 21:50 RDW 16.3 H Creatinine 0.5 L Magnesium Lactate Dehydrogenase 275 H Ur Total Protein 24 Hr 858.00 H Urine Total Protein 39 H 09/08/21 09/08/21 09/08/21 00:49 07:28 12:14 RDW Creatinine Magnesium 5.20 H 5.40 H 5.00 H Lactate Dehydrogenase Ur Total Protein 24 Hr Urine Total Protein 09/08/21 18:45 RDW Creatinine Magnesium 4.20 H Lactate Dehydrogenase Ur Total Protein 24 Hr Urine Total Protein
[2021-09-10] MEDS: ASPIRIN EC 81 MG TAB PO SCH (10:22)
[2021-09-10 12:37] LABS: Hematocrit 34.3 % (30.3-42.9); Hemoglobin 11.4 gm/dl (10.1-14.3); Mean Corpuscular HGB Conc 33 % (30-34); Mean Corpuscular Volume 93 fl (79-97); Platelet Count 231 K/mm3 (140-440); Red Cell Distribution Width 16.1 % (13.2-15.2)
[2021-09-10 12:41] LABS: Alanine Aminotransferase 8 units/L (7-56); Albumin 3.2 g/dL (3.9-5); Blood Urea Nitrogen 10 mg/dL (7-17); Calcium 8.4 mg/dL (8.4-10.2); Hemolysis Index 9
[2021-09-10 12:42] LABS: BUN/Creatinine Ratio 20
--- NOTE | 2021-09-11 07:25 | Progress Note ---
Subjective - Subjective Date of service: 09/11/21 Principal diagnosis: IUP at 29.4wks with chronic HTN, mild preeclampsia Interval history: 41-year-old -0-0-1 at 30.1 weeks with AUDREY 11/19/2021 by ultrasound. CHTN with superimposed preeclampsia At bedside patient is awake alert and oriented x3. She has no complaints. she admits to good movement. 24-hour urine protein collection completed over 800mgdl. Review of blood pressures reveals a BP range of 170/90-130s/ 80s in the past 24 hours. Patient did not receive any IV antihypertensive for the breakthrough severe range blood pressures in the last 24 hours. labetalol to 300 mg p.o. q 8 hours. PIH labs stable. Antepartum testing today reassuring overall with positive FGR Appreciate [facility] comanagement Will use IV antihypertensive for breakthrough severe range blood pressures per acog emergent hypertension algorithm. Continue expectant management, patient has completed steroids. Intermittent monitoring category 1. Reviewed by myself 09/11/2021 Maternal and status reassuring overall Luther Philip MD Objective - Vital Signs Vital Signs: Vital Signs - 12hr 09/10/21 09/10/21 09/10/21 19:50 19:51 19:55 Temperature 98.7 F Pulse Rate 94 H 90 Respiratory 18 Rate Blood Pressure 155/78 O2 Sat by Pulse 71 L 97 Oximetry O2 Sat by Pulse 97 Oximetry [ Anterior Bilateral Throughout] 09/10/21 09/10/21 09/10/21 23:48 23:52 23:53 Temperature Pulse Rate 69 84 Respiratory Rate Blood Pressure O2 Sat by Pulse 92 92 92 Oximetry O2 Sat by Pulse Oximetry [ Anterior Bilateral Throughout] 09/10/21 09/11/21 09/11/21 23:57 00:02 00:07 Temperature Pulse Rate 84 84 81 Respiratory Rate Blood Pressure O2 Sat by Pulse 96 98 97 Oximetry O2 Sat by Pulse Oximetry [ Anterior Bilateral Throughout] 09/11/21 09/11/21 09/11/21 00:12 00:17 00:22 Temperature Pulse Rate 81 85 88 Respiratory Rate Blood Pressure O2 Sat by Pulse 97 99 96 Oximetry O2 Sat by Pulse Oximetry [ Anterior Bilateral Throughout] 09/11/21 09/11/21 09/11/21 01:30 01:32 01:34 Temperature Pulse Rate 86 83 85 Respiratory Rate Blood Pressure 137/76 137/76 O2 Sat by Pulse 98 Oximetry O2 Sat by Pulse Oximetry [ Anterior Bilateral Throughout] 09/11/21 09/11/21 09/11/21 01:35 01:36 05:41 Temperature 98.7 F Pulse Rate 85 132 H Respiratory 18 Rate Blood Pressure 137/76 O2 Sat by Pulse 100 83 L Oximetry O2 Sat by Pulse Oximetry [ Anterior Bilateral Throughout] 09/11/21 05:42 Temperature 98.2 F Pulse Rate 94 H Respiratory 16 Rate Blood Pressure 153/90 O2 Sat by Pulse 98 Oximetry O2 Sat by Pulse Oximetry [ Anterior Bilateral Throughout] - Labs Labs: Abnormal Labs 09/05/21 09/05/21 09/05/21 18:40 18:40 21:50 RDW 16.3 H Creatinine 0.5 L Magnesium Alkaline Phosphatase Lactate Dehydrogenase 275 H Total Protein Albumin Ur Total Protein 24 Hr 858.00 H Urine Total Protein 39 H 09/08/21 09/08/21 09/08/21 00:49 07:28 12:14 RDW Creatinine Magnesium 5.20 H 5.40 H 5.00 H Alkaline Phosphatase Lactate Dehydrogenase Total Protein Albumin Ur Total Protein 24 Hr Urine Total Protein 09/08/21 09/10/21 09/10/21 18:45 08:16 08:16 RDW 16.1 H Creatinine 0.5 L Magnesium 4.20 H Alkaline Phosphatase 138 H Lactate Dehydrogenase Total Protein 5.3 L Albumin 3.2 L Ur Total Protein 24 Hr Urine Total Protein Laboratory Results - last 24 hr 09/10/21 09/10/21 09/10/21 08:16 08:16 12:05 WBC 7.9 RBC 3.70 Hgb 11.4 Hct 34.3 MCV 93 MCH 31 MCHC 33 RDW 16.1 H Plt Count 231 Sodium 139 Potassium 4.9 Chloride 106.6 Carbon Dioxide 22 Anion Gap 15 BUN 10 Creatinine 0.5 L Estimated GFR > 60 BUN/Creatinine Ratio 20 Glucose 90 Calcium 8.4 Total Bilirubin 0.20 AST 16 ALT 8 Alkaline Phosphatase 138 H Total Protein 5.3 L Albumin 3.2 L Albumin/Globulin Ratio 1.5 Blood Type B POSITIVE Antibody Screen Negative
[2021-09-11] MEDS: ASPIRIN EC 81 MG TAB PO SCH (10:09)
[2021-09-11] MEDS ORDERED: ZOLPIDEM 5 MG TAB PO PRN (18:37)
[2021-09-12] MEDS: ASPIRIN EC 81 MG TAB PO SCH (10:33)
--- NOTE | 2021-09-12 10:51 | Progress Note ---
Assessment and Plan IUP at 30.2wks with chronic HTN, mild preeclampsia without severe features. Pt is not a candidate for outpatient mgt per [facility] and pt notified 1. Will repeat pih labs today, NST, BPP, ADONIS, umbilical artery dopplers 2. Interval growth every 3wks 3. Increase labetalol to 400mg every 8hrs 4. Appreciate [facility] plan of care given and all questions encouraged and answered. Subjective Date of service: 09/12/21 Principal diagnosis: IUP at 30.2wks with chronic HTN, mild preeclampsia Interval history: pt concerned as to when she will be going home. pt denies headache. Overnight BP was elevated 170/90's x1 episode by nurse. Pt admits to movement, denies LOF or vag bleed. Objective - Constitutional Vitals: Vital Signs - 12hr 09/12/21 09/12/21 09/12/21 00:06 00:07 00:13 Temperature Pulse Rate 79 71 80 Respiratory 18 Rate Blood Pressure 171/91 144/86 Blood Pressure 144/86 [Left] O2 Sat by Pulse 99 100 Oximetry O2 Sat by Pulse Oximetry [ Anterior Bilateral Throughout] 09/12/21 09/12/21 09/12/21 02:05 02:06 04:43 Temperature Pulse Rate 87 87 80 Respiratory Rate Blood Pressure 145/85 145/85 128/70 Blood Pressure [Left] O2 Sat by Pulse Oximetry O2 Sat by Pulse Oximetry [ Anterior Bilateral Throughout] 09/12/21 09/12/21 09/12/21 04:44 08:12 09:45 Temperature 98.9 F Pulse Rate 80 94 H Respiratory 18 Rate Blood Pressure 134/77 Blood Pressure 128/70 [Left] O2 Sat by Pulse 100 Oximetry O2 Sat by Pulse 99 Oximetry [ Anterior Bilateral Throughout] 09/12/21 09/12/21 09/12/21 09:52 09:57 10:02 Temperature Pulse Rate 96 H 89 82 Respiratory Rate Blood Pressure Blood Pressure [Left] O2 Sat by Pulse 99 99 99 Oximetry O2 Sat by Pulse Oximetry [ Anterior Bilateral Throughout] 09/12/21 09/12/21 09/12/21 10:07 10:12 10:17 Temperature Pulse Rate 91 H 91 H 87 Respiratory Rate Blood Pressure Blood Pressure [Left] O2 Sat by Pulse 99 99 99 Oximetry O2 Sat by Pulse Oximetry [ Anterior Bilateral Throughout] 09/12/21 09/12/21 09/12/21 10:22 10:27 10:32 Temperature Pulse Rate 86 90 92 H Respiratory Rate Blood Pressure Blood Pressure [Left] O2 Sat by Pulse 99 99 100 Oximetry O2 Sat by Pulse Oximetry [ Anterior Bilateral Throughout] 09/12/21 09/12/21 09/12/21 10:34 10:37 10:42 Temperature Pulse Rate 89 88 90 Respiratory Rate Blood Pressure 134/77 Blood Pressure [Left] O2 Sat by Pulse 100 99 Oximetry O2 Sat by Pulse Oximetry [ Anterior Bilateral Throughout] 09/12/21 10:47 Temperature Pulse Rate 91 H Respiratory Rate Blood Pressure Blood Pressure [Left] O2 Sat by Pulse 99 Oximetry O2 Sat by Pulse Oximetry [ Anterior Bilateral Throughout] General appearance: Present: no acute distress - Neck Neck: normal ROM - Respiratory Respiratory effort: normal - Breasts Breasts: deferred - Cardiovascular Rhythm: regular Extremities: No edema - Gastrointestinal General gastrointestinal: Present: soft, non-tender - Genitourinary Female genitourinary: deferred - Integumentary Integumentary: warm, dry - Neurologic Neurologic: moves all extremities - Psychiatric Psychiatric: cooperative - Labs CBC & Chem 7: 09/10/21 08:16 09/10/21 08:16 Medications & Allergies - Medications Allergies/Adverse Reactions: Allergies No Known Allergies Allergy (Verified 09/07/21 09:38) Home Medications: Home Medications Medication Instructions Recorded Confirmed Last Taken Type No Known Home Medications [No 09/08/21 09/08/21 Unknown History Reported Home Medications] Active Medications: Generic Name Dose Route Start Last Admin Trade Name Meng PRN Reason Stop Dose Admin Acetaminophen 650 mg 09/05/21 18:56 09/05/21 20:21 Acetaminophen 325 Mg Tab PO 650 mg Q4H PRN Administration Pain, Mild (1-3) Aspirin 81 mg 09/08/21 10:00 09/12/21 10:33 Aspirin Ec 81 Mg Tab PO 81 mg QDAY SHERYL Administration Hydralazine HCl 10 mg 09/06/21 06:18 Hydralazine 20 Mg/1 Ml Inj IV ONCE PRN Blood Pressure Lactated Ringer's 1,000 mls @ 125 mls/hr 09/05/21 19:00 09/09/21 14:27 Lactated Ringers IV 100 mls/hr DIRECT SHERYL Administration Labetalol HCl 20 mg 09/06/21 05:54 09/07/21 11:06 Labetalol 20 Mg/4 Ml Inj IV 20 mg ONCE PRN Administration Blood Pressure Labetalol HCl 40 mg 09/06/21 06:12 Labetalol 100 Mg/20 Ml Inj Mdv IV ONCE PRN Blood Pressure Labetalol HCl 80 mg 09/06/21 06:15 Labetalol 100 Mg/20 Ml Inj Mdv IV ONCE PRN Blood Pressure Labetalol HCl 200 mg 09/07/21 18:00 09/12/21 02:05 Labetalol 200 Mg Tab PO 200 mg Q8H SHERYL Administration Labetalol HCl 200 mg 09/12/21 10:50 Labetalol 100 Mg Tab PO Q8H SHERYL Zolpidem Tartrate 5 mg 09/11/21 18:37 Zolpidem 5 Mg Tab PO QHS PRN Sleep
[2021-09-12 11:15] LABS: Basophils % (Auto) 0.6 % (0.0-1.8); Eosinophils # (Auto) 0.2 K/mm3 (0.0-0.4); Eosinophils % (Auto) 2.8 % (0.0-4.3); Hematocrit 39.4 % (30.3-42.9); Hemoglobin 12.7 gm/dl (10.1-14.3); Lymphocytes # (Auto) 2.5 K/mm3 (1.2-5.4); Mean Corpuscular HGB Conc 32 % (30-34); Mean Corpuscular Volume 92 fl (79-97); Monocytes # (Auto) 0.6 K/mm3 (0.0-0.8); Monocytes % (Auto) 8.4 % (0.0-7.3); Platelet Count 271 K/mm3 (140-440); Red Blood Count 4.28 M/mm3 (3.65-5.03); Red Cell Distribution Width 15.8 % (13.2-15.2)
[2021-09-12 11:33] LABS: Alanine Aminotransferase 9 units/L (7-56); Albumin 3.2 g/dL (3.9-5); Blood Urea Nitrogen 9 mg/dL (7-17); Calcium 8.9 mg/dL (8.4-10.2); Hemolysis Index 7; Uric Acid 4.9 mg/dL (3.5-7.6)
[2021-09-12 11:45] LABS: BUN/Creatinine Ratio 18
--- NOTE | 2021-09-12 13:00 | Ultrasound Report ---
ULTRASOUND BIOPHYSICAL PROFILE INDICATION: umbilical artery dopplers, ADONIS, EFW. COMPARISON: 09/05/2021 FINDINGS: heart rate is 163 beats per minute. breathing movement = 2 Gross body movement = 2 tone = 2 Qualitative amniotic fluid volume = 2 IMPRESSION: biophysical profile = 12/12 Signer Name: Orlando Finch Jr, MD Signed: 09/12/2021 12:55 PM Workstation Name: [id number]
--- NOTE | 2021-09-12 13:02 | Ultrasound Report ---
ULTRASOUND OBSTETRIC COMPLETE INDICATION / CLINICAL INFORMATION: umbilical artery dopplers, ADONIS, EFW. well-being Clinical Gestational Age (GA) in weeks.days: 30.2 TECHNIQUE: Transabdominal. COMPARISON: 09/05/2021 FINDINGS: NUMBER: Single PRESENTATION: cephalic PLACENTA: Not evaluated. MATERNAL ADNEXA: No significant abnormality. AMNIOTIC FLUID VOLUME: normal AMNIOTIC FLUID INDEX (ADONIS) in cm (if measured): 9.8 ANATOMY: anatomical survey was not performed. MEASUREMENTS: - Biparietal Diameter = 7.4 cm = 29.4 weeks.days - Head Circumference = 26.8 cm = 29.2 weeks.days - Abdominal Circumference = 24.0 cm = 28.2 weeks.days - Femur Length = 5.3 cm = 28.1 weeks.days - Estimated Weight (in grams, if calculated): 1222 - Heart Rate (beats per minute): 152 ADDITIONAL FINDINGS: None. AVERAGE ULTRASOUND AGE (AUA) in weeks.days = 28.6 IMPRESSION: 1. Single intrauterine with AUA of 28.6 weeks.days 2. No acute abnormality is appreciated. Signer Name: Orlando Finch Jr, MD Signed: 09/12/2021 12:58 PM Workstation Name: [id number]
--- NOTE | 2021-09-12 13:52 | Consultation ---
History of Present Illness Consult date: 09/12/21 Requesting physician: ROSENDO LOBO History of present illness: Ms. Patel is a 41 y/o AUDREY 11/19/21 EGA at 30 2/7 weeks sent in from OB' office with elevated BP's and CORRAL ? Denies H/O CHTN - states started on Labetalol early in ? around 20 weeks BP in ob office 09/05/21 at 155/96 09/12/21 high BP 171/91 Most recent BP 134/77 Denies CORRAL's [place] or RUQ Pain Pos ONTD screen PIH labs 09/05/21 09/12/21 AST/ALT at 19/9 H/H at 12.6/38 Plts at 266 Creat at .5 Spot UA at 30 24 Hour Urine Prot - 898 ( 24 Hour Urine Prot at 109 mg on 05/12/21 ) 09/12/21 AST/ALT at 14/9 Plts at 271 H/H at 12.2/39 Creat at .5 [facility] US 09/05/21 EFW at 1127 mg / 24 hours - at 5% with AC at 3.7% - FGR BPP 8/8 09/12/21 BPP 88 Cord doppler at 5.8 Labetalol started 100 mg BID in April - Now 400 TID Abd obese NT no ruq tenderness ext tr edema dtr 2/4 no clonus Past History Past Medical History: hypertension - Obstetrical History : 2 Medications and Allergies Allergies Allergy/AdvReac Type Severity Reaction Status Date / Time No Known Allergies Allergy Verified 09/07/21 09:38 Home Medications Medication Instructions Recorded Confirmed Last Taken Type No Known Home Medications [No 09/08/21 09/08/21 Unknown History Reported Home Medications] Active Meds: Active Medications Acetaminophen (Acetaminophen 325 Mg Tab) 650 mg PO Q4H PRN PRN Reason: Pain, Mild (1-3) Last Admin: 09/05/21 20:21 Dose: 650 mg Aspirin (Aspirin Ec 81 Mg Tab) 81 mg PO QDAY [facility] Last Admin: 09/12/21 10:33 Dose: 81 mg Hydralazine HCl (Hydralazine 20 Mg/1 Ml Inj) 10 mg IV ONCE PRN PRN Reason: Blood Pressure Lactated Ringer's (Lactated Ringers) 1,000 mls @ 125 mls/hr IV DIRECT SHERYL Last Admin: 09/09/21 14:27 Dose: 100 mls/hr Labetalol HCl (Labetalol 20 Mg/4 Ml Inj) 20 mg IV ONCE PRN PRN Reason: Blood Pressure Last Admin: 09/07/21 11:06 Dose: 20 mg Labetalol HCl (Labetalol 100 Mg/20 Ml Inj Mdv) 40 mg IV ONCE PRN PRN Reason: Blood Pressure Labetalol HCl (Labetalol 100 Mg/20 Ml Inj Mdv) 80 mg IV ONCE PRN PRN Reason: Blood Pressure Labetalol HCl (Labetalol 200 Mg Tab) 200 mg PO Q8H [facility] Last Admin: 09/12/21 02:05 Dose: 200 mg Labetalol HCl (Labetalol 100 Mg Tab) 200 mg PO Q8H [facility] Zolpidem Tartrate (Zolpidem 5 Mg Tab) 5 mg PO QHS PRN PRN Reason: Sleep - Vital Signs Vital signs: Vital Signs Pulse Pulse Ox 89 99 09/05/21 18:06 09/05/21 18:06 Temp Pulse Resp BP Pulse Ox 99.0 F 58 L 18 129/80 80 L 09/12/21 11:00 09/12/21 13:12 09/12/21 04:44 09/12/21 11:24 09/12/21 13:12 Results Result Diagrams: 09/12/21 10:54 09/12/21 10:54 Abnormal lab results 09/12/21 09/12/21 Range/Units 10:54 10:54 RDW 15.8 H (13.2-15.2) % Lymph % (Auto) 36.0 H (13.4-35.0) % Sanders % (Auto) 8.4 H (0.0-7.3) % Sodium 133 L (137-145) mmol/L Creatinine 0.5 L (0.6-1.2) mg/dL Alkaline Phosphatase 143 H (35-129) units/L Lactate Dehydrogenase 240 H (91-180) units/L Total Protein 5.8 L (6.3-8.2) g/dL Albumin 3.2 L (3.9-5) g/dL All other labs normal. Assessment and Plan 1. [place] IUP at 30 2/7 weeks 2. Suspected CHTN with Superimposed Preeclampsia 3. FGR 4. Pos ONTD Screen 5. AMA - NIPT Neg - Please have OB confirm Recommendations 1. Delivery for S/S of severe preeclampsia or compromise goal is delivery at 34 weeks 2. Labetalol 400 TID 3. 24 Hour urine - 898 4. IV Labetalol/Hydralazine for BP's Sys > 160 or M[place] > 110 5. Delivery for S/S of severe preeclampsia or compromise 6. LDA q day 7. S/P steroids for FLM 8. Serial US for growth q 2-3 weeks 9. BPP and cord dopplers twice per week due to FGR
--- NOTE | 2021-09-12 15:26 | Ultrasound Report ---
ULTRASOUND OB VELOCIMETRY UMBILICAL ARTERY INDICATION / CLINICAL INFORMATION: FWB. Clinical Gestational Age (GA) in weeks, days: 30 weeks 2 days TECHNIQUE: Transabdominal. COMPARISON: Umbilical cord Doppler 09/09/2021. FINDINGS: HEART RATE (beats per minute): 163 BPM UMBILICAL CORD DOPPLER: 3 segments of the umbilical cord were evaluated. - S/D Ratio Average: 5.83 - Waveform: Normal. Persistent. - Resistive Index (RI) Average: 0.8 - Waveform: Normal. Persistent. ADDITIONAL FINDINGS: None. IMPRESSION: 1. No significant abnormality. Scribed by: Lucinda Barbosa RDMS, INDU, RON Scribed: 09/12/2021 1:49 PM I have reviewed the images, agree with this report, and edited this report as needed. Signer Name: Jesus Chamorro MD Signed: 09/12/2021 3:22 PM Workstation Name: [id number]
[2021-09-13] MEDS: ASPIRIN EC 81 MG TAB PO SCH (10:55)
--- NOTE | 2021-09-13 15:05 | Progress Note ---
Assessment and Plan IUP at 30.3wks, chronic HTN now controlled on meds with mild preeclampsia 1. continue present meds labetalol 400mg every 8hr and mgt per [facility]; Normal BPP/ADONIS/ umb artery dopplers done 09/12/21; 2. all questions encouraged and answered. Subjective Date of service: 09/13/21 Principal diagnosis: IUP at 30.3wks with chronic HTN, mild preeclampsia Interval history: pt states she was very happy with my allowing out in the lobby to spend time with her family. pt denies headache and states all night her blood pressures were good. Pt would love to go home today but will remain if not allowed. Pt admits to movment, denies LOF or vag bleed or ctx. Objective - Constitutional Vitals: Vital Signs - 12hr 09/13/21 09/13/21 09/13/21 03:42 03:44 06:20 Temperature 98.7 F Pulse Rate 95 H 97 H Respiratory 18 Rate Blood Pressure 137/79 Blood Pressure 131/79 [Left] Blood Pressure 137/79 [Right] O2 Sat by Pulse 97 92 Oximetry O2 Sat by Pulse Oximetry [ Anterior Bilateral Throughout] 09/13/21 09/13/21 09/13/21 06:21 07:15 07:16 Temperature 98.2 F Pulse Rate 92 H 86 Respiratory 16 Rate Blood Pressure 131/79 139/91 Blood Pressure [Left] Blood Pressure [Right] O2 Sat by Pulse 82 L Oximetry O2 Sat by Pulse 98 Oximetry [ Anterior Bilateral Throughout] 09/13/21 09/13/21 09/13/21 08:35 10:55 11:50 Temperature Pulse Rate 88 88 90 Respiratory Rate Blood Pressure 120/74 120/77 115/66 Blood Pressure [Left] Blood Pressure [Right] O2 Sat by Pulse Oximetry O2 Sat by Pulse Oximetry [ Anterior Bilateral Throughout] 09/13/21 12:47 Temperature 97.9 F Pulse Rate Respiratory 16 Rate Blood Pressure Blood Pressure [Left] Blood Pressure [Right] O2 Sat by Pulse Oximetry O2 Sat by Pulse Oximetry [ Anterior Bilateral Throughout] General appearance: Present: no acute distress - Neck Neck: normal ROM - Respiratory Respiratory effort: normal - Breasts Breasts: deferred - Cardiovascular Rhythm: regular Extremities: No edema - Gastrointestinal General gastrointestinal: Present: soft, non-tender - Genitourinary Female genitourinary: deferred - Integumentary Integumentary: warm, dry - Neurologic Neurologic: moves all extremities - Psychiatric Psychiatric: cooperative - Labs CBC & Chem 7: 09/12/21 10:54 09/12/21 10:54 Medications & Allergies - Medications Allergies/Adverse Reactions: Allergies No Known Allergies Allergy (Verified 09/07/21 09:38) Home Medications: Home Medications Medication Instructions Recorded Confirmed Last Taken Type No Known Home Medications [No 09/08/21 09/08/21 Unknown History Reported Home Medications] Active Medications: Generic Name Dose Route Start Last Admin Trade Name Freq PRN Reason Stop Dose Admin Acetaminophen 650 mg 09/05/21 18:56 09/05/21 20:21 Acetaminophen 325 Mg Tab PO 650 mg Q4H PRN Administration Pain, Mild (1-3) Aspirin 81 mg 09/08/21 10:00 09/13/21 10:55 Aspirin Ec 81 Mg Tab PO 81 mg QDAY SHERYL Administration Hydralazine HCl 10 mg 09/06/21 06:18 Hydralazine 20 Mg/1 Ml Inj IV ONCE PRN Blood Pressure Lactated Ringer's 1,000 mls @ 125 mls/hr 09/05/21 19:00 09/09/21 14:27 Lactated Ringers IV 100 mls/hr DIRECT SHERYL Administration Labetalol HCl 20 mg 09/06/21 05:54 09/07/21 11:06 Labetalol 20 Mg/4 Ml Inj IV 20 mg ONCE PRN Administration Blood Pressure Labetalol HCl 40 mg 09/06/21 06:12 Labetalol 100 Mg/20 Ml Inj Mdv IV ONCE PRN Blood Pressure Labetalol HCl 80 mg 09/06/21 06:15 Labetalol 100 Mg/20 Ml Inj Mdv IV ONCE PRN Blood Pressure Labetalol HCl 400 mg 09/13/21 10:00 09/13/21 10:55 Labetalol 200 Mg Tab PO 400 mg Q8H SHERYL Administration Zolpidem Tartrate 5 mg 09/11/21 18:37 09/12/21 23:39 Zolpidem 5 Mg Tab PO 5 mg QHS PRN Administration Sleep
--- NOTE | 2021-09-14 09:22 | Progress Note ---
Subjective - Subjective Date of service: 09/14/21 Principal diagnosis: IUP at 30.3wks with chronic HTN, mild preeclampsia Interval history: 41-year-old -0-0-1 at 30.4 weeks with AUDREY 11/19/2021 by ultrasound. CHTN with superimposed preeclampsia At bedside patient is awake alert and oriented x3. She has no complaints. she admits to good movement. 24-hour urine protein collection completed over 800mgdl. Review of blood pressures reveals a BP range in the past 24 hours: see templated BP's below labetalol to 300 mg p.o. q 8 hours. PIH labs stable. Antepartum testing eassuring overall with positive FGR: repeat BPP 09/16/21 Appreciate [facility] comanagement Will use IV antihypertensive for breakthrough severe range blood pressures per acog emergent hypertension algorithm. Continue expectant management, patient has completed steroids. Intermittent monitoring category 1. Reviewed by myself 09/14/2021 Maternal and status reassuring overall Luther Philip MD Vital Signs - 24 hr 09/13/21 09/13/21 09/13/21 10:55 11:50 12:47 Temperature 97.9 F Pulse Rate 88 90 Respiratory 16 Rate Blood Pressure 120/77 115/66 Blood Pressure [Left] O2 Sat by Pulse Oximetry O2 Sat by Pulse Oximetry [ Anterior Bilateral Throughout] 09/13/21 09/13/21 09/13/21 15:45 16:41 18:16 Temperature 98.3 F Pulse Rate 89 94 H Respiratory 16 Rate Blood Pressure 129/73 122/77 Blood Pressure [Left] O2 Sat by Pulse Oximetry O2 Sat by Pulse Oximetry [ Anterior Bilateral Throughout] 09/13/21 09/13/21 09/13/21 18:54 20:37 20:38 Temperature 98.3 F 98.6 F Pulse Rate 90 88 Respiratory 16 18 Rate Blood Pressure 141/88 Blood Pressure 134/84 [Left] O2 Sat by Pulse 98 Oximetry O2 Sat by Pulse Oximetry [ Anterior Bilateral Throughout] 09/13/21 09/13/21 09/13/21 20:39 20:41 20:44 Temperature Pulse Rate 91 H 91 H Respiratory Rate Blood Pressure 134/84 Blood Pressure [Left] O2 Sat by Pulse 98 98 Oximetry O2 Sat by Pulse 98 Oximetry [ Anterior Bilateral Throughout] 05/03/2809/14/21 09/14/21 01:45 01:46 01:51 Temperature Pulse Rate 87 87 87 Respiratory Rate Blood Pressure 123/71 123/71 Blood Pressure 123/71 [Left] O2 Sat by Pulse Oximetry O2 Sat by Pulse Oximetry [ Anterior Bilateral Throughout] 09/14/21 09/14/21 09/14/21 06:37 06:41 08:19 Temperature Pulse Rate 82 82 84 Respiratory Rate Blood Pressure 126/72 129/71 Blood Pressure 126/72 [Left] O2 Sat by Pulse Oximetry O2 Sat by Pulse Oximetry [ Anterior Bilateral Throughout] 09/14/21 08:20 Temperature 98.5 F Pulse Rate Respiratory 18 Rate Blood Pressure Blood Pressure [Left] O2 Sat by Pulse Oximetry O2 Sat by Pulse Oximetry [ Anterior Bilateral Throughout] Objective - Vital Signs Vital Signs: Vital Signs - 12hr 09/14/21 09/14/21 09/14/21 01:45 01:46 01:51 Temperature Pulse Rate 87 87 87 Respiratory Rate Blood Pressure 123/71 123/71 Blood Pressure 123/71 [Left] 09/14/21 09/14/21 09/14/21 06:37 06:41 08:19 Temperature Pulse Rate 82 82 84 Respiratory Rate Blood Pressure 126/72 129/71 Blood Pressure 126/72 [Left] 09/14/21 08:20 Temperature 98.5 F Pulse Rate Respiratory 18 Rate Blood Pressure Blood Pressure [Left] - Labs Labs: Abnormal Labs 09/05/21 09/05/21 09/05/21 18:40 18:40 21:50 RDW 16.3 H Lymph % (Auto) Prentiss % (Auto) Sodium Creatinine 0.5 L Magnesium Alkaline Phosphatase Lactate Dehydrogenase 275 H Total Protein Albumin Ur Total Protein 24 Hr 858.00 H Urine Total Protein 39 H 09/08/21 09/08/21 09/08/21 00:49 07:28 12:14 RDW Lymph % (Auto) Prentiss % (Auto) Sodium Creatinine Magnesium 5.20 H 5.40 H 5.00 H Alkaline Phosphatase Lactate Dehydrogenase Total Protein Albumin Ur Total Protein 24 Hr Urine Total Protein 09/08/21 09/10/21 09/10/21 18:45 08:16 08:16 RDW 16.1 H Lymph % (Auto) Prentiss % (Auto) Sodium Creatinine 0.5 L Magnesium 4.20 H Alkaline Phosphatase 138 H Lactate Dehydrogenase Total Protein 5.3 L Albumin 3.2 L Ur Total Protein 24 Hr Urine Total Protein 09/12/21 09/12/21 10:54 10:54 RDW 15.8 H Lymph % (Auto) 36.0 H Prentiss % (Auto) 8.4 H Sodium 133 L Creatinine 0.5 L Magnesium Alkaline Phosphatase 143 H Lactate Dehydrogenase 240 H Total Protein 5.8 L Albumin 3.2 L Ur Total Protein 24 Hr Urine Total Protein
[2021-09-14] MEDS: ASPIRIN EC 81 MG TAB PO SCH (10:10)
[2021-09-15 06:13] LABS: Hematocrit 36.3 % (30.3-42.9); Hemoglobin 11.9 gm/dl (10.1-14.3); Mean Corpuscular HGB Conc 33 % (30-34); Mean Corpuscular Volume 92 fl (79-97); Platelet Count 265 K/mm3 (140-440); Red Blood Count 3.95 M/mm3 (3.65-5.03); Red Cell Distribution Width 15.7 % (13.2-15.2)
[2021-09-15 06:36] LABS: Alanine Aminotransferase 7 units/L (7-56); Blood Urea Nitrogen 14 mg/dL (7-17); Calcium 9.3 mg/dL (8.4-10.2); Hemolysis Index 12
[2021-09-15 06:38] LABS: BUN/Creatinine Ratio 23
--- NOTE | 2021-09-15 08:14 | Progress Note ---
Subjective - Subjective Date of service: 09/15/21 Principal diagnosis: IUP at 30.3wks with chronic HTN, mild preeclampsia Interval history: 41-year-old -0-0-1 at 30.5 weeks with AUDREY 11/19/2021 by ultrasound. CHTN with superimposed preeclampsia At bedside patient is awake alert and oriented x3. She has no complaints. she admits to good movement. 24-hour urine protein collection completed over 800mgdl. Review of blood pressures reveals a BP range in the past 24 hours: see templated BP's below labetalol to 300 mg p.o. q 8 hours. PIH labs stable. Antepartum testing eassuring overall with positive FGR: repeat BPP 09/16/21 Appreciate [facility] comanagement Will use IV antihypertensive for breakthrough severe range blood pressures per acog emergent hypertension algorithm. Continue expectant management, patient has completed steroids. Intermittent monitoring category 1. Reviewed by myself 09/15/2021 Maternal and status reassuring overall Luther Philip MD Vital Signs - 24 hr 09/13/21 09/13/21 09/13/21 10:55 11:50 12:47 Temperature 97.9 F Pulse Rate 88 90 Respiratory 16 Rate Blood Pressure 120/77 115/66 Blood Pressure [Left] O2 Sat by Pulse Oximetry O2 Sat by Pulse Oximetry [ Anterior Bilateral Throughout] 09/13/21 09/13/21 09/13/21 15:45 16:41 18:16 Temperature 98.3 F Pulse Rate 89 94 H Respiratory 16 Rate Blood Pressure 129/73 122/77 Blood Pressure [Left] O2 Sat by Pulse Oximetry O2 Sat by Pulse Oximetry [ Anterior Bilateral Throughout] 09/13/21 09/13/21 09/13/21 18:54 20:37 20:38 Temperature 98.3 F 98.6 F Pulse Rate 90 88 Respiratory 16 18 Rate Blood Pressure 141/88 Blood Pressure 134/84 [Left] O2 Sat by Pulse 98 Oximetry O2 Sat by Pulse Oximetry [ Anterior Bilateral Throughout] 09/13/21 09/13/21 09/13/21 20:39 20:41 20:44 Temperature Pulse Rate 91 H 91 H Respiratory Rate Blood Pressure 134/84 Blood Pressure [Left] O2 Sat by Pulse 98 98 Oximetry O2 Sat by Pulse 98 Oximetry [ Anterior Bilateral Throughout] 05/03/2809/14/21 09/14/21 01:45 01:46 01:51 Temperature Pulse Rate 87 87 87 Respiratory Rate Blood Pressure 123/71 123/71 Blood Pressure 123/71 [Left] O2 Sat by Pulse Oximetry O2 Sat by Pulse Oximetry [ Anterior Bilateral Throughout] 09/14/21 09/14/21 09/14/21 06:37 06:41 08:19 Temperature Pulse Rate 82 82 84 Respiratory Rate Blood Pressure 126/72 129/71 Blood Pressure 126/72 [Left] O2 Sat by Pulse Oximetry O2 Sat by Pulse Oximetry [ Anterior Bilateral Throughout] 09/14/21 08:20 Temperature 98.5 F Pulse Rate Respiratory 18 Rate Blood Pressure Blood Pressure [Left] O2 Sat by Pulse Oximetry O2 Sat by Pulse Oximetry [ Anterior Bilateral Throughout] Objective - Vital Signs Vital Signs: Vital Signs - 12hr 09/14/21 09/15/21 09/15/21 23:14 03:49 03:50 Temperature 98.6 F 98.6 F Pulse Rate 93 H 84 Respiratory Rate Blood Pressure 138/80 133/73 Blood Pressure 133/73 [Left] Blood Pressure 138/80 [Right] O2 Sat by Pulse Oximetry O2 Sat by Pulse Oximetry [ Anterior Bilateral Throughout] 09/15/21 09/15/21 09/15/21 06:11 06:12 06:17 Temperature Pulse Rate 87 96 H 93 H Respiratory Rate Blood Pressure 143/81 Blood Pressure [Left] Blood Pressure [Right] O2 Sat by Pulse 99 98 Oximetry O2 Sat by Pulse Oximetry [ Anterior Bilateral Throughout] 09/15/21 09/15/21 09/15/21 06:22 06:27 06:32 Temperature Pulse Rate 86 92 H 96 H Respiratory Rate Blood Pressure Blood Pressure [Left] Blood Pressure [Right] O2 Sat by Pulse 99 99 99 Oximetry O2 Sat by Pulse Oximetry [ Anterior Bilateral Throughout] 09/15/21 09/15/21 09/15/21 06:37 06:42 07:30 Temperature Pulse Rate 87 86 Respiratory Rate Blood Pressure Blood Pressure [Left] Blood Pressure [Right] O2 Sat by Pulse 99 99 80 L Oximetry O2 Sat by Pulse Oximetry [ Anterior Bilateral Throughout] 09/15/21 09/15/21 09/15/21 07:31 07:33 07:35 Temperature Pulse Rate 88 90 Respiratory 20 Rate Blood Pressure 122/79 Blood Pressure 122/79 [Left] Blood Pressure [Right] O2 Sat by Pulse 91 98 Oximetry O2 Sat by Pulse Oximetry [ Anterior Bilateral Throughout] 09/15/21 09/15/21 09/15/21 07:36 07:37 07:41 Temperature Pulse Rate 92 H 91 H Respiratory Rate Blood Pressure Blood Pressure [Left] Blood Pressure [Right] O2 Sat by Pulse 98 97 Oximetry O2 Sat by Pulse 97 Oximetry [ Anterior Bilateral Throughout] 09/15/21 09/15/21 09/15/21 07:46 07:51 07:56 Temperature 99.6 F Pulse Rate 86 87 84 Respiratory Rate Blood Pressure Blood Pressure [Left] Blood Pressure [Right] O2 Sat by Pulse 98 97 97 Oximetry O2 Sat by Pulse Oximetry [ Anterior Bilateral Throughout] 09/15/21 09/15/21 08:01 08:06 Temperature Pulse Rate 90 84 Respiratory Rate Blood Pressure Blood Pressure [Left] Blood Pressure [Right] O2 Sat by Pulse 97 98 Oximetry O2 Sat by Pulse Oximetry [ Anterior Bilateral Throughout] - Labs Labs: Abnormal Labs 09/05/21 09/05/21 09/05/21 18:40 18:40 21:50 RDW 16.3 H Lymph % (Auto) [place] % (Auto) Sodium Carbon Dioxide Creatinine 0.5 L Magnesium Alkaline Phosphatase Lactate Dehydrogenase 275 H Total Protein Albumin Ur Total Protein 24 Hr 858.00 H Urine Total Protein 39 H 09/08/21 09/08/21 09/08/21 00:49 07:28 12:14 RDW Lymph % (Auto) [place] % (Auto) Sodium Carbon Dioxide Creatinine Magnesium 5.20 H 5.40 H 5.00 H Alkaline Phosphatase Lactate Dehydrogenase Total Protein Albumin Ur Total Protein 24 Hr Urine Total Protein 09/08/21 09/10/21 09/10/21 18:45 08:16 08:16 RDW 16.1 H Lymph % (Auto) [place] % (Auto) Sodium Carbon Dioxide Creatinine 0.5 L Magnesium 4.20 H Alkaline Phosphatase 138 H Lactate Dehydrogenase Total Protein 5.3 L Albumin 3.2 L Ur Total Protein 24 Hr Urine Total Protein 09/12/21 09/12/21 09/15/21 10:54 10:54 05:43 RDW 15.8 H 15.7 H Lymph % (Auto) 36.0 H [place] % (Auto) 8.4 H Sodium 133 L Carbon Dioxide Creatinine 0.5 L Magnesium Alkaline Phosphatase 143 H Lactate Dehydrogenase 240 H Total Protein 5.8 L Albumin 3.2 L Ur Total Protein 24 Hr Urine Total Protein 09/15/21 05:43 RDW Lymph % (Auto) [place] % (Auto) Sodium 135 L Carbon Dioxide 19 L Creatinine Magnesium Alkaline Phosphatase 141 H Lactate Dehydrogenase Total Protein 6.0 L Albumin 3.0 L Ur Total Protein 24 Hr Urine Total Protein Laboratory Results - last 24 hr 09/15/21 09/15/21 05:43 05:43 WBC 7.9 RBC 3.95 Hgb 11.9 Hct 36.3 MCV 92 MCH 30 MCHC 33 RDW 15.7 H Plt Count 265 Sodium 135 L Potassium 4.3 Chloride 103.1 Carbon Dioxide 19 L Anion Gap 17 BUN 14 Creatinine 0.6 Estimated GFR > 60 BUN/Creatinine Ratio 23 Glucose 87 Calcium 9.3 Total Bilirubin 0.20 AST 13 ALT 7 Alkaline Phosphatase 141 H Total Protein 6.0 L Albumin 3.0 L Albumin/Globulin Ratio 1.0
[2021-09-15] MEDS: ASPIRIN EC 81 MG TAB PO SCH (10:33)
[2021-09-15] MEDS: LACTATED RINGERS 1,000 ML IV SCH (17:03)
--- NOTE | 2021-09-16 09:34 | Progress Note ---
Assessment and Plan IUP at 30.6wks with chronic HTN, mild preeclampsia relatively stable, unknown cause of low grade temp, normal cbc yesterday 1. Will continue labetalol 300mg every 8hrs, repeat BPP/ADONIS/Umb artery dopplers 2. Appreciate [facility] 3. Will expectantly follow low grade temp with pt asymptomatic Plan of care discussed with pt. All questions encouraged and answered Subjective Date of service: 09/16/21 Principal diagnosis: IUP at 30.6wks with chronic HTN, mild preeclampsia Interval history: pt has no complaints. Denies Headache. Admits to FM, Denies vag bleed, ctx or headache. Nurse states pt had temp 99.7 this morning Objective - Constitutional Vitals: Vital Signs - 12hr 09/16/21 09/16/21 09/16/21 03:29 03:30 04:31 Temperature Pulse Rate 86 86 90 Blood Pressure 134/76 134/76 146/83 O2 Sat by Pulse Oximetry 09/16/21 09/16/21 09/16/21 05:31 07:49 07:52 Temperature Pulse Rate 85 99 H 85 Blood Pressure 108/60 133/93 O2 Sat by Pulse 90 Oximetry 09/16/21 09/16/21 09/16/21 07:53 07:58 08:03 Temperature Pulse Rate 85 92 H 88 Blood Pressure O2 Sat by Pulse 99 98 99 Oximetry 09/16/21 09/16/21 09/16/21 08:08 08:13 08:18 Temperature Pulse Rate 82 81 81 Blood Pressure O2 Sat by Pulse 99 98 98 Oximetry 09/16/21 09/16/21 09/16/21 08:20 08:21 08:23 Temperature 99.7 F H Pulse Rate 85 78 Blood Pressure 153/90 O2 Sat by Pulse 99 Oximetry 09/16/21 09/16/21 09/16/21 08:28 08:33 08:38 Temperature Pulse Rate 78 82 84 Blood Pressure O2 Sat by Pulse 99 99 99 Oximetry 09/16/21 09/16/21 09/16/21 08:43 08:48 08:50 Temperature Pulse Rate 97 H 100 H 90 Blood Pressure 141/86 O2 Sat by Pulse 100 99 Oximetry 09/16/21 09/16/21 09/16/21 08:53 08:58 09:03 Temperature Pulse Rate 96 H 93 H 89 Blood Pressure O2 Sat by Pulse 98 99 98 Oximetry 09/16/21 09/16/21 09/16/21 09:08 09:13 09:18 Temperature Pulse Rate 85 87 90 Blood Pressure O2 Sat by Pulse 99 100 99 Oximetry 09/16/21 09/16/21 09:20 09:23 Temperature Pulse Rate 92 H 90 Blood Pressure 130/83 O2 Sat by Pulse 98 Oximetry General appearance: Present: no acute distress - Neck Neck: normal ROM - Respiratory Respiratory effort: normal - Breasts Breasts: deferred - Cardiovascular Rhythm: regular Extremities: No edema - Gastrointestinal General gastrointestinal: Present: soft, non-tender - Genitourinary Female genitourinary: other (non-tender gravid; NST reactive and no ctx per nurse report) - Integumentary Integumentary: warm, dry - Labs CBC & Chem 7: 09/15/21 05:43 09/15/21 05:43 Medications & Allergies - Medications Allergies/Adverse Reactions: Allergies No Known Allergies Allergy (Verified 09/07/21 09:38) Home Medications: Home Medications Medication Instructions Recorded Confirmed Last Taken Type No Known Home Medications [No 09/08/21 09/08/21 Unknown History Reported Home Medications] Active Medications: Generic Name Dose Route Start Last Admin Trade Name Freq PRN Reason Stop Dose Admin Acetaminophen 650 mg 09/05/21 18:56 09/05/21 20:21 Acetaminophen 325 Mg Tab PO 650 mg Q4H PRN Administration Pain, Mild (1-3) Aspirin 81 mg 09/08/21 10:00 09/15/21 10:33 Aspirin Ec 81 Mg Tab PO 81 mg QDAY SHERYL Administration Hydralazine HCl 10 mg 09/06/21 06:18 Hydralazine 20 Mg/1 Ml Inj IV ONCE PRN Blood Pressure Lactated Ringer's 1,000 mls @ 125 mls/hr 09/05/21 19:00 09/15/21 17:03 Lactated Ringers IV 100 mls/hr DIRECT SHERYL Administration Labetalol HCl 20 mg 09/06/21 05:54 09/07/21 11:06 Labetalol 20 Mg/4 Ml Inj IV 20 mg ONCE PRN Administration Blood Pressure Labetalol HCl 40 mg 09/06/21 06:12 Labetalol 100 Mg/20 Ml Inj Mdv IV ONCE PRN Blood Pressure Labetalol HCl 80 mg 09/06/21 06:15 Labetalol 100 Mg/20 Ml Inj Mdv IV ONCE PRN Blood Pressure Labetalol HCl 400 mg 09/13/21 10:00 09/16/21 03:29 Labetalol 200 Mg Tab PO 400 mg Q8H SHERYL Administration Zolpidem Tartrate 5 mg 09/11/21 18:37 09/12/21 23:39 Zolpidem 5 Mg Tab PO 5 mg QHS PRN Administration Sleep
--- NOTE | 2021-09-16 10:45 | Ultrasound Report ---
ULTRASOUND BIOPHYSICAL PROFILE ULTRASOUND OB LIMITED INDICATION: ADONIS and umbilical artery dopplers TECHNIQUE: Transabdominal ultrasound imaging. COMPARISON: 09/22/2021 FINDINGS: breathing movement = 2 Gross body movement = 2 tone = 2 Qualitative amniotic fluid volume = 2 Total biophysical score = 8/8 Amniotic fluid index is 13.8 cm. Presentation is cephalic. heart rate is 145 beats per minute. IMPRESSION: biophysical profile equals 8/8. Signer Name: Orlando Finch Jr, MD Signed: 09/16/2021 10:41 AM Workstation Name: [id number]
--- NOTE | 2021-09-16 10:47 | Ultrasound Report ---
ULTRASOUND OB VELOCIMETRY UMBILICAL ARTERY HISTORY: well being TECHNIQUE: Transabdominal ultrasound with color and spectral Doppler imaging COMPARISON: 09/12/2021 FINDINGS: 3 segments of the umbilical cord were evaluated. heart rate measures 149 bpm. There is intermit tent loss of end-diastolic flow on the umbilical cord Doppler images. The pulsatility index average m easures 2.0 in these segments. Average S/D ratio measures: 4.47 Average resistive index measures: 0.78 Signer Name: Orlando Finch Jr, MD Signed: 09/16/2021 10:43 AM Workstation Name: [id number]
[2021-09-16] MEDS: ASPIRIN EC 81 MG TAB PO SCH (11:23)
[2021-09-17] MEDS: ASPIRIN EC 81 MG TAB PO SCH (10:31)
--- NOTE | 2021-09-17 18:33 | Progress Note ---
Assessment and Plan IUP at 30.0wks with chronic HTN, Umbilical artery dopplers with abnormality intermittent loss of end diastolic flow. BP controlled with current labetalol meds and pt has already received steroids 1. Will repeat BPP/Umbical artery dopplers today 2. Appreciate [facility] 3. If abnormal again then will do continuous FHR monitoring 4. Continue labetalol 400mg every 8hrs and daily aspirin Plan of care discussed with pt. All questions encouraged and answered Subjective Date of service: 09/17/21 Principal diagnosis: IUP at 31.0wks with chronic HTN, mild preeclampsia Interval history: pt has no complaints. pt denies headache. pt admits to movement, denies LOF, vag bleed or contractions. Objective - Constitutional Vitals: Vital Signs - 12hr 09/17/21 09/17/21 09/17/21 08:55 09:04 09:07 Temperature Pulse Rate 64 86 Respiratory Rate Blood Pressure 136/81 Blood Pressure [Left] Blood Pressure [Right] O2 Sat by Pulse 86 88 95 Oximetry O2 Sat by Pulse Oximetry [ Anterior Bilateral Throughout] 09/17/21 09/17/21 09/17/21 09:11 09:12 09:15 Temperature 99.0 F Pulse Rate 92 H 58 L Respiratory 16 Rate Blood Pressure Blood Pressure [Left] Blood Pressure [Right] O2 Sat by Pulse 99 99 93 Oximetry O2 Sat by Pulse 99 Oximetry [ Anterior Bilateral Throughout] 09/17/21 09/17/21 09/17/21 10:31 12:36 12:37 Temperature 98.6 F Pulse Rate 85 83 87 Respiratory 20 Rate Blood Pressure 119/66 140/82 Blood Pressure 140/82 [Left] Blood Pressure [Right] O2 Sat by Pulse 98 99 Oximetry O2 Sat by Pulse Oximetry [ Anterior Bilateral Throughout] 09/17/21 09/17/21 09/17/21 14:30 17:24 17:25 Temperature 98.4 F Pulse Rate 94 H 91 H Respiratory 20 20 Rate Blood Pressure 132/78 136/78 Blood Pressure [Left] Blood Pressure 132/78 [Right] O2 Sat by Pulse 99 97 98 Oximetry O2 Sat by Pulse Oximetry [ Anterior Bilateral Throughout] 09/17/21 17:26 Temperature Pulse Rate Respiratory Rate Blood Pressure 136/78 Blood Pressure [Left] Blood Pressure [Right] O2 Sat by Pulse Oximetry O2 Sat by Pulse Oximetry [ Anterior Bilateral Throughout] General appearance: Present: no acute distress - Neck Neck: normal ROM - Respiratory Respiratory effort: normal Extremities: No edema - Gastrointestinal General gastrointestinal: Present: soft, non-tender - Genitourinary Female genitourinary: other (FHR reactive per nurse, but there was a single decel with loss of contact, baby monitored for 2hrs and fhr category I afterwards. No ctx) - Integumentary Integumentary: warm, dry - Neurologic Neurologic: moves all extremities - Psychiatric Psychiatric: cooperative - Labs CBC & Chem 7: 09/15/21 05:43 09/15/21 05:43 Medications & Allergies - Medications Allergies/Adverse Reactions: Allergies No Known Allergies Allergy (Verified 09/07/21 09:38) Home Medications: Home Medications Medication Instructions Recorded Confirmed Last Taken Type No Known Home Medications [No 09/08/21 09/08/21 Unknown History Reported Home Medications] Active Medications: Generic Name Dose Route Start Last Admin Trade Name Freq PRN Reason Stop Dose Admin Acetaminophen 650 mg 09/05/21 18:56 09/05/21 20:21 Acetaminophen 325 Mg Tab PO 650 mg Q4H PRN Administration Pain, Mild (1-3) Aspirin 81 mg 09/08/21 10:00 09/17/21 10:31 Aspirin Ec 81 Mg Tab PO 81 mg QDAY SHERYL Administration Hydralazine HCl 10 mg 09/06/21 06:18 Hydralazine 20 Mg/1 Ml Inj IV ONCE PRN Blood Pressure Lactated Ringer's 1,000 mls @ 125 mls/hr 09/05/21 19:00 09/15/21 17:03 Lactated Ringers IV 100 mls/hr DIRECT SHERYL Administration Labetalol HCl 20 mg 09/06/21 05:54 09/07/21 11:06 Labetalol 20 Mg/4 Ml Inj IV 20 mg ONCE PRN Administration Blood Pressure Labetalol HCl 40 mg 09/06/21 06:12 Labetalol 100 Mg/20 Ml Inj Mdv IV ONCE PRN Blood Pressure Labetalol HCl 80 mg 09/06/21 06:15 Labetalol 100 Mg/20 Ml Inj Mdv IV ONCE PRN Blood Pressure Labetalol HCl 400 mg 09/13/21 10:00 09/17/21 17:26 Labetalol 200 Mg Tab PO 400 mg Q8H SHERYL Administration Zolpidem Tartrate 5 mg 09/11/21 18:37 09/12/21 23:39 Zolpidem 5 Mg Tab PO 5 mg QHS PRN Administration Sleep
--- NOTE | 2021-09-17 20:35 | Ultrasound Report ---
ULTRASOUND OBSTETRIC LIMITED ULTRASOUND BIOPHYSICAL PROFILE INDICATION / CLINICAL INFORMATION: follow up BPP and umbilical artery dopplers. COMPARISON: 09/16/2021 FINDINGS: BREATHING MOVEMENT = 2 GROSS BODY MOVEMENT = 2 TONE = 2 QUALITATIVE AMNIOTIC FLUID VOLUME = 2 TOTAL BIOPHYSICAL SCORE = 8/8 AMNIOTIC FLUID INDEX (cm) = not measured PRESENTATION: Cephalic. HEART RATE (beats per minute): 147 ADDITIONAL FINDINGS: None. IMPRESSION: 1. Biophysical Score = 8/8 ULTRASOUND OB VELOCIMETRY UMBILICAL ARTERY INDICATION: Follow-up prior umbilical artery velocity measuring. TECHNIQUE: Transabdominal ultrasound with color and spectral Doppler imaging COMPARISON: 09/16/2021 FINDINGS: 3 segments of the umbilical cord were evaluated. heart rate measures 145 bpm. The spectral wave forms are normal and persistent. Average S/D ratio measures: 3.36 Average resistive index measures: 0.70 Signer Name: Harry Park MD Signed: 09/17/2021 8:30 PM Workstation Name: [id number]
[2021-09-18] MEDS: ASPIRIN EC 81 MG TAB PO SCH (09:56)
--- NOTE | 2021-09-18 16:15 | Progress Note ---
<RODRIGO WALTONLito - Last Filed: 09/18/21 16:19> Assessment and Plan A: at 31 weeks gestation. Chronic hypertension. Mild preeclampsia. AMA. FGR. Obesity. P: Management plan per Dr. Lobo. Consulted with Dr. Lobo re: this patient. Subjective - Subjective Date of service: 09/18/21 Principal diagnosis: IUP at 31.0wks with chronic HTN, mild preeclampsia Interval history: Patient denies headache, visual disturbance, nausea or vomiting, or abdominal pain. Patient reports active movement. Denies contractions. Patient is receiving Labetalol 400 mg po every 8 hours; also receiving daily aspirin. Patient reports: movement normal, no new complaints, no vaginal bleeding, no contractions Objective - Vital Signs Vital Signs: Vital Signs - 12hr 09/18/21 09/18/21 09/18/21 08:21 08:23 09:56 Temperature 98.8 F Pulse Rate 90 Respiratory 16 Rate Blood Pressure 136/80 128/75 Blood Pressure 136/80 [Left] O2 Sat by Pulse 99 Oximetry [ Anterior Bilateral Throughout] 09/18/21 09:57 Temperature Pulse Rate 88 Respiratory Rate Blood Pressure 128/75 Blood Pressure [Left] O2 Sat by Pulse Oximetry [ Anterior Bilateral Throughout] - Exam Cardiovascular: Regular rate Lungs: Clear to auscultation Abdomen: Present: normal appearance, soft. Absent: distention, tenderness, guarding, rigidity Uterus: Present: other (gravid, nontender) - Labs Labs: Abnormal Labs 09/05/21 09/05/21 09/05/21 18:40 18:40 21:50 RDW 16.3 H Lymph % (Auto) [place] % (Auto) Sodium Carbon Dioxide Creatinine 0.5 L Magnesium Alkaline Phosphatase Lactate Dehydrogenase 275 H Total Protein Albumin Ur Total Protein 24 Hr 858.00 H Urine Total Protein 39 H 09/08/21 09/08/21 09/08/21 00:49 07:28 12:14 RDW Lymph % (Auto) [place] % (Auto) Sodium Carbon Dioxide Creatinine Magnesium 5.20 H 5.40 H 5.00 H Alkaline Phosphatase Lactate Dehydrogenase Total Protein Albumin Ur Total Protein 24 Hr Urine Total Protein 09/08/21 09/10/21 09/10/21 18:45 08:16 08:16 RDW 16.1 H Lymph % (Auto) [place] % (Auto) Sodium Carbon Dioxide Creatinine 0.5 L Magnesium 4.20 H Alkaline Phosphatase 138 H Lactate Dehydrogenase Total Protein 5.3 L Albumin 3.2 L Ur Total Protein 24 Hr Urine Total Protein 09/12/21 09/12/21 09/15/21 10:54 10:54 05:43 RDW 15.8 H 15.7 H Lymph % (Auto) 36.0 H [place] % (Auto) 8.4 H Sodium 133 L Carbon Dioxide Creatinine 0.5 L Magnesium Alkaline Phosphatase 143 H Lactate Dehydrogenase 240 H Total Protein 5.8 L Albumin 3.2 L Ur Total Protein 24 Hr Urine Total Protein 09/15/21 05:43 RDW Lymph % (Auto) [place] % (Auto) Sodium 135 L Carbon Dioxide 19 L Creatinine Magnesium Alkaline Phosphatase 141 H Lactate Dehydrogenase Total Protein 6.0 L Albumin 3.0 L Ur Total Protein 24 Hr Urine Total Protein <ROSENDO LOBO G - Last Filed: 09/19/21 00:58> Objective - Vital Signs Vital Signs: Vital Signs - 12hr 09/18/21 09/18/21 09/18/21 18:06 18:07 21:11 Pulse Rate 97 H Blood Pressure 138/82 138/82 O2 Sat by Pulse 99 Oximetry [ Anterior Bilateral Throughout] 09/18/21 23:02 Pulse Rate 90 Blood Pressure 123/77 O2 Sat by Pulse Oximetry [ Anterior Bilateral Throughout] - Labs Labs: Abnormal Labs 09/05/21 09/05/21 09/05/21 18:40 18:40 21:50 RDW 16.3 H Lymph % (Auto) [place] % (Auto) Sodium Carbon Dioxide Creatinine 0.5 L Magnesium Alkaline Phosphatase Lactate Dehydrogenase 275 H Total Protein Albumin Ur Total Protein 24 Hr 858.00 H Urine Total Protein 39 H 09/08/21 09/08/21 09/08/21 00:49 07:28 12:14 RDW Lymph % (Auto) [place] % (Auto) Sodium Carbon Dioxide Creatinine Magnesium 5.20 H 5.40 H 5.00 H Alkaline Phosphatase Lactate Dehydrogenase Total Protein Albumin Ur Total Protein 24 Hr Urine Total Protein 09/08/21 09/10/21 09/10/21 18:45 08:16 08:16 RDW 16.1 H Lymph % (Auto) [place] % (Auto) Sodium Carbon Dioxide Creatinine 0.5 L Magnesium 4.20 H Alkaline Phosphatase 138 H Lactate Dehydrogenase Total Protein 5.3 L Albumin 3.2 L Ur Total Protein 24 Hr Urine Total Protein 09/12/21 09/12/21 09/15/21 10:54 10:54 05:43 RDW 15.8 H 15.7 H Lymph % (Auto) 36.0 H [place] % (Auto) 8.4 H Sodium 133 L Carbon Dioxide Creatinine 0.5 L Magnesium Alkaline Phosphatase 143 H Lactate Dehydrogenase 240 H Total Protein 5.8 L Albumin 3.2 L Ur Total Protein 24 Hr Urine Total Protein 09/15/21 05:43 RDW Lymph % (Auto) [place] % (Auto) Sodium 135 L Carbon Dioxide 19 L Creatinine Magnesium Alkaline Phosphatase 141 H Lactate Dehydrogenase Total Protein 6.0 L Albumin 3.0 L Ur Total Protein 24 Hr Urine Total Protein
--- NOTE | 2021-09-19 09:02 | Progress Note ---
Subjective - Subjective Principal diagnosis: IUP at 31.0wks with chronic HTN, mild preeclampsia Interval history: 41-year-old -0-0-1 at 31.2 weeks with AUDREY 11/19/2021 by ultrasound. CHTN with superimposed preeclampsia At bedside patient is awake alert and oriented x3. She has no complaints. she admits to good movement. Review of blood pressures reveals a BP range in the past 24 hours: see templated BP's below labetalol to 300 mg p.o. q 8 hours. PIH labs stable. Antepartum testing reassuring overall with positive FGR Appreciate [facility] co-management Will use IV antihypertensive for breakthrough severe range blood pressures per acog emergent hypertension algorithm. Continue expectant management, patient has completed steroids. Intermittent monitoring category 1. Reviewed by myself 09/19 Vital Signs - 24 hr 09/18/21 09/18/21 09/18/21 09:56 09:57 18:06 Pulse Rate 88 Blood Pressure 128/75 128/75 138/82 O2 Sat by Pulse Oximetry [ Anterior Bilateral Throughout] 09/18/21 09/18/21 09/18/21 18:07 21:11 23:02 Pulse Rate 97 H 90 Blood Pressure 138/82 123/77 O2 Sat by Pulse 99 Oximetry [ Anterior Bilateral Throughout] 09/19/21 09/19/21 09/19/21 02:41 02:42 07:36 Pulse Rate 86 86 86 Blood Pressure 134/80 134/80 147/87 O2 Sat by Pulse Oximetry [ Anterior Bilateral Throughout] 09/19/21 07:40 Pulse Rate Blood Pressure O2 Sat by Pulse 98 Oximetry [ Anterior Bilateral Throughout] Maternal and status reassuring overall Luther Philip MD Vital Signs - 24 hr 09/13/21 09/13/21 09/13/21 10:55 11:50 12:47 Temperature 97.9 F Pulse Rate 88 90 Respiratory 16 Rate Blood Pressure 120/77 115/66 Blood Pressure [Left] O2 Sat by Pulse Oximetry O2 Sat by Pulse Oximetry [ Anterior Bilateral Throughout] 09/13/21 09/13/21 09/13/21 15:45 16:41 18:16 Temperature 98.3 F Pulse Rate 89 94 H Respiratory 16 Rate Blood Pressure 129/73 122/77 Blood Pressure [Left] O2 Sat by Pulse Oximetry O2 Sat by Pulse Oximetry [ Anterior Bilateral Throughout] 09/13/21 09/13/21 09/13/21 18:54 20:37 20:38 Temperature 98.3 F 98.6 F Pulse Rate 90 88 Respiratory 16 18 Rate Blood Pressure 141/88 Blood Pressure 134/84 [Left] O2 Sat by Pulse 98 Oximetry O2 Sat by Pulse Oximetry [ Anterior Bilateral Throughout] 09/13/21 09/13/21 09/13/21 20:39 20:41 20:44 Temperature Pulse Rate 91 H 91 H Respiratory Rate Blood Pressure 134/84 Blood Pressure [Left] O2 Sat by Pulse 98 98 Oximetry O2 Sat by Pulse 98 Oximetry [ Anterior Bilateral Throughout] 09/14/21 09/14/21 09/14/21 01:45 01:46 01:51 Temperature Pulse Rate 87 87 87 Respiratory Rate Blood Pressure 123/71 123/71 Blood Pressure 123/71 [Left] O2 Sat by Pulse Oximetry O2 Sat by Pulse Oximetry [ Anterior Bilateral Throughout] 09/14/21 09/14/21 09/14/21 06:37 06:41 08:19 Temperature Pulse Rate 82 82 84 Respiratory Rate Blood Pressure 126/72 129/71 Blood Pressure 126/72 [Left] O2 Sat by Pulse Oximetry O2 Sat by Pulse Oximetry [ Anterior Bilateral Throughout] 09/14/21 08:20 Temperature 98.5 F Pulse Rate Respiratory 18 Rate Blood Pressure Blood Pressure [Left] O2 Sat by Pulse Oximetry O2 Sat by Pulse Oximetry [ Anterior Bilateral Throughout] Patient reports: movement normal, no new complaints, no vaginal bleeding, no contractions Objective - Vital Signs Vital Signs: Vital Signs - 12hr 09/18/21 09/18/21 09/19/21 21:11 23:02 02:41 Pulse Rate 90 86 Blood Pressure 123/77 134/80 O2 Sat by Pulse 99 Oximetry [ Anterior Bilateral Throughout] 09/19/21 09/19/21 09/19/21 02:42 07:36 07:40 Pulse Rate 86 86 Blood Pressure 134/80 147/87 O2 Sat by Pulse 98 Oximetry [ Anterior Bilateral Throughout] - Labs Labs: Abnormal Labs 09/05/21 09/05/21 09/05/21 18:40 18:40 21:50 RDW 16.3 H Lymph % (Auto) [place] % (Auto) Sodium Carbon Dioxide Creatinine 0.5 L Magnesium Alkaline Phosphatase Lactate Dehydrogenase 275 H Total Protein Albumin Ur Total Protein 24 Hr 858.00 H Urine Total Protein 39 H 09/08/21 09/08/21 09/08/21 00:49 07:28 12:14 RDW Lymph % (Auto) [place] % (Auto) Sodium Carbon Dioxide Creatinine Magnesium 5.20 H 5.40 H 5.00 H Alkaline Phosphatase Lactate Dehydrogenase Total Protein Albumin Ur Total Protein 24 Hr Urine Total Protein 09/08/21 09/10/21 09/10/21 18:45 08:16 08:16 RDW 16.1 H Lymph % (Auto) [place] % (Auto) Sodium Carbon Dioxide Creatinine 0.5 L Magnesium 4.20 H Alkaline Phosphatase 138 H Lactate Dehydrogenase Total Protein 5.3 L Albumin 3.2 L Ur Total Protein 24 Hr Urine Total Protein 09/12/21 09/12/21 09/15/21 10:54 10:54 05:43 RDW 15.8 H 15.7 H Lymph % (Auto) 36.0 H [place] % (Auto) 8.4 H Sodium 133 L Carbon Dioxide Creatinine 0.5 L Magnesium Alkaline Phosphatase 143 H Lactate Dehydrogenase 240 H Total Protein 5.8 L Albumin 3.2 L Ur Total Protein 24 Hr Urine Total Protein 09/15/21 05:43 RDW Lymph % (Auto) [place] % (Auto) Sodium 135 L Carbon Dioxide 19 L Creatinine Magnesium Alkaline Phosphatase 141 H Lactate Dehydrogenase Total Protein 6.0 L Albumin 3.0 L Ur Total Protein 24 Hr Urine Total Protein
[2021-09-19] MEDS: ASPIRIN EC 81 MG TAB PO SCH (09:59)
[2021-09-20] MEDS: ASPIRIN EC 81 MG TAB PO SCH (09:59)
--- NOTE | 2021-09-20 11:00 | Progress Note ---
Subjective - Subjective Date of service: 09/20/21 Principal diagnosis: IUP at 31.0wks with chronic HTN, mild preeclampsia Interval history: 41-year-old -0-0-1 at 31.3 weeks with AUDREY 11/19/2021 by ultrasound. CHTN with superimposed preeclampsia At bedside patient is awake alert and oriented x3. She has no complaints. she admits to good movement. Review of blood pressures reveals a BP range in the past 24 hours: see templated BP's below labetalol to 300 mg p.o. q 8 hours. PIH labs stable. Antepartum testing:+ve FGR in 5% with new onset intermittent absent EDF and BPP 4/8. NST reactive for GA. Plan for repeat 24 hour urine,repeat BPP in AM and delivery for SS Severe PE with compromise and/or and associated maternal or indications. Appreciate [facility] co-management Will use IV antihypertensive for breakthrough severe range blood pressures per acog emergent hypertension algorithm. Continue expectant management, patient has completed steroids. Intermittent monitoring now changed to CONTINUOUS MONITORING Maternal and status reassuring overall CLito Philip MD Vital Signs - 12hr 09/19/21 09/20/21 09/20/21 23:37 02:07 02:08 Temperature 98.6 F Pulse Rate 93 H 88 88 Respiratory 18 Rate Blood Pressure 126/70 131/71 131/71 Blood Pressure 126/70 [Left] Blood Pressure [Right] O2 Sat by Pulse Oximetry O2 Sat by Pulse Oximetry [ Anterior Bilateral Throughout] 09/20/21 09/20/21 09/20/21 04:35 04:36 09:03 Temperature 98.5 F 99 F Pulse Rate 88 89 Respiratory 17 20 Rate Blood Pressure 133/80 Blood Pressure [Left] Blood Pressure 133/80 116/75 [Right] O2 Sat by Pulse 99 Oximetry O2 Sat by Pulse Oximetry [ Anterior Bilateral Throughout] 09/20/21 09/20/21 09/20/21 09:04 09:05 09:09 Temperature Pulse Rate 89 96 H 97 H Respiratory Rate Blood Pressure 117/70 116/75 Blood Pressure [Left] Blood Pressure [Right] O2 Sat by Pulse 99 Oximetry O2 Sat by Pulse Oximetry [ Anterior Bilateral Throughout] 09/20/21 09/20/21 09/20/21 09:14 09:15 09:19 Temperature Pulse Rate 101 H 96 H Respiratory Rate Blood Pressure Blood Pressure [Left] Blood Pressure [Right] O2 Sat by Pulse 98 98 Oximetry O2 Sat by Pulse 98 Oximetry [ Anterior Bilateral Throughout] 09/20/21 09/20/21 09/20/21 09:24 09:29 09:34 Temperature Pulse Rate 97 H 96 H 89 Respiratory Rate Blood Pressure Blood Pressure [Left] Blood Pressure [Right] O2 Sat by Pulse 98 98 99 Oximetry O2 Sat by Pulse Oximetry [ Anterior Bilateral Throughout] 09/20/21 09/20/21 09/20/21 09:39 09:44 09:49 Temperature Pulse Rate 92 H 89 97 H Respiratory Rate Blood Pressure Blood Pressure [Left] Blood Pressure [Right] O2 Sat by Pulse 98 98 98 Oximetry O2 Sat by Pulse Oximetry [ Anterior Bilateral Throughout] 09/20/21 09/20/21 09/20/21 09:51 09:53 09:54 Temperature Pulse Rate 89 88 88 Respiratory Rate Blood Pressure 116/75 116/75 Blood Pressure [Left] Blood Pressure [Right] O2 Sat by Pulse 98 Oximetry O2 Sat by Pulse Oximetry [ Anterior Bilateral Throughout] 09/20/21 09:59 Temperature Pulse Rate 95 H Respiratory Rate Blood Pressure Blood Pressure [Left] Blood Pressure [Right] O2 Sat by Pulse 98 Oximetry O2 Sat by Pulse Oximetry [ Anterior Bilateral Throughout] Vital Signs - 24 hr 09/18/21 09/18/21 09/18/21 09:56 09:57 18:06 Pulse Rate 88 Blood Pressure 128/75 128/75 138/82 O2 Sat by Pulse Oximetry [ Anterior Bilateral Throughout] 09/18/21 09/18/21 09/18/21 18:07 21:11 23:02 Pulse Rate 97 H 90 Blood Pressure 138/82 123/77 O2 Sat by Pulse 99 Oximetry [ Anterior Bilateral Throughout] 09/19/21 09/19/21 09/19/21 02:41 02:42 07:36 Pulse Rate 86 86 86 Blood Pressure 134/80 134/80 147/87 O2 Sat by Pulse Oximetry [ Anterior Bilateral Throughout] 09/19/21 07:40 Pulse Rate Blood Pressure O2 Sat by Pulse 98 Oximetry [ Anterior Bilateral Throughout] Vital Signs - 24 hr 09/13/21 09/13/21 09/13/21 10:55 11:50 12:47 Temperature 97.9 F Pulse Rate 88 90 Respiratory 16 Rate Blood Pressure 120/77 115/66 Blood Pressure [Left] O2 Sat by Pulse Oximetry O2 Sat by Pulse Oximetry [ Anterior Bilateral Throughout] 09/13/21 09/13/21 09/13/21 15:45 16:41 18:16 Temperature 98.3 F Pulse Rate 89 94 H Respiratory 16 Rate Blood Pressure 129/73 122/77 Blood Pressure [Left] O2 Sat by Pulse Oximetry O2 Sat by Pulse Oximetry [ Anterior Bilateral Throughout] 09/13/21 09/13/21 09/13/21 18:54 20:37 20:38 Temperature 98.3 F 98.6 F Pulse Rate 90 88 Respiratory 16 18 Rate Blood Pressure 141/88 Blood Pressure 134/84 [Left] O2 Sat by Pulse 98 Oximetry O2 Sat by Pulse Oximetry [ Anterior Bilateral Throughout] 09/13/21 09/13/21 09/13/21 20:39 20:41 20:44 Temperature Pulse Rate 91 H 91 H Respiratory Rate Blood Pressure 134/84 Blood Pressure [Left] O2 Sat by Pulse 98 98 Oximetry O2 Sat by Pulse 98 Oximetry [ Anterior Bilateral Throughout] 09/14/21 09/14/21 09/14/21 01:45 01:46 01:51 Temperature Pulse Rate 87 87 87 Respiratory Rate Blood Pressure 123/71 123/71 Blood Pressure 123/71 [Left] O2 Sat by Pulse Oximetry O2 Sat by Pulse Oximetry [ Anterior Bilateral Throughout] 09/14/21 09/14/21 09/14/21 06:37 06:41 08:19 Temperature Pulse Rate 82 82 84 Respiratory Rate Blood Pressure 126/72 129/71 Blood Pressure 126/72 [Left] O2 Sat by Pulse Oximetry O2 Sat by Pulse Oximetry [ Anterior Bilateral Throughout] 09/14/21 08:20 Temperature 98.5 F Pulse Rate Respiratory 18 Rate Blood Pressure Blood Pressure [Left] O2 Sat by Pulse Oximetry O2 Sat by Pulse Oximetry [ Anterior Bilateral Throughout] Patient reports: movement normal, no new complaints, no vaginal bleeding, no contractions Objective - Vital Signs Vital Signs: Vital Signs - 12hr 09/19/21 09/20/21 09/20/21 23:37 02:07 02:08 Temperature 98.6 F Pulse Rate 93 H 88 88 Respiratory 18 Rate Blood Pressure 126/70 131/71 131/71 Blood Pressure 126/70 [Left] Blood Pressure [Right] O2 Sat by Pulse Oximetry O2 Sat by Pulse Oximetry [ Anterior Bilateral Throughout] 09/20/21 09/20/21 09/20/21 04:35 04:36 09:03 Temperature 98.5 F 99 F Pulse Rate 88 89 Respiratory 17 20 Rate Blood Pressure 133/80 Blood Pressure [Left] Blood Pressure 133/80 116/75 [Right] O2 Sat by Pulse 99 Oximetry O2 Sat by Pulse Oximetry [ Anterior Bilateral Throughout] 09/20/21 09/20/21 09/20/21 09:04 09:05 09:09 Temperature Pulse Rate 89 96 H 97 H Respiratory Rate Blood Pressure 117/70 116/75 Blood Pressure [Left] Blood Pressure [Right] O2 Sat by Pulse 99 Oximetry O2 Sat by Pulse Oximetry [ Anterior Bilateral Throughout] 09/20/21 09/20/21 09/20/21 09:14 09:15 09:19 Temperature Pulse Rate 101 H 96 H Respiratory Rate Blood Pressure Blood Pressure [Left] Blood Pressure [Right] O2 Sat by Pulse 98 98 Oximetry O2 Sat by Pulse 98 Oximetry [ Anterior Bilateral Throughout] 09/20/21 09/20/21 09/20/21 09:24 09:29 09:34 Temperature Pulse Rate 97 H 96 H 89 Respiratory Rate Blood Pressure Blood Pressure [Left] Blood Pressure [Right] O2 Sat by Pulse 98 98 99 Oximetry O2 Sat by Pulse Oximetry [ Anterior Bilateral Throughout] 09/20/21 09/20/21 09/20/21 09:39 09:44 09:49 Temperature Pulse Rate 92 H 89 97 H Respiratory Rate Blood Pressure Blood Pressure [Left] Blood Pressure [Right] O2 Sat by Pulse 98 98 98 Oximetry O2 Sat by Pulse Oximetry [ Anterior Bilateral Throughout] 09/20/21 09/20/21 09/20/21 09:51 09:53 09:54 Temperature Pulse Rate 89 88 88 Respiratory Rate Blood Pressure 116/75 116/75 Blood Pressure [Left] Blood Pressure [Right] O2 Sat by Pulse 98 Oximetry O2 Sat by Pulse Oximetry [ Anterior Bilateral Throughout] 09/20/21 09:59 Temperature Pulse Rate 95 H Respiratory Rate Blood Pressure Blood Pressure [Left] Blood Pressure [Right] O2 Sat by Pulse 98 Oximetry O2 Sat by Pulse Oximetry [ Anterior Bilateral Throughout] - Labs Labs: Abnormal Labs 09/05/21 09/05/21 09/05/21 18:40 18:40 21:50 RDW 16.3 H Lymph % (Auto) [place] % (Auto) Sodium Carbon Dioxide Creatinine 0.5 L Magnesium Alkaline Phosphatase Lactate Dehydrogenase 275 H Total Protein Albumin Ur Total Protein 24 Hr 858.00 H Urine Total Protein 39 H 09/08/21 09/08/21 09/08/21 00:49 07:28 12:14 RDW Lymph % (Auto) [place] % (Auto) Sodium Carbon Dioxide Creatinine Magnesium 5.20 H 5.40 H 5.00 H Alkaline Phosphatase Lactate Dehydrogenase Total Protein Albumin Ur Total Protein 24 Hr Urine Total Protein 09/08/21 09/10/21 09/10/21 18:45 08:16 08:16 RDW 16.1 H Lymph % (Auto) [place] % (Auto) Sodium Carbon Dioxide Creatinine 0.5 L Magnesium 4.20 H Alkaline Phosphatase 138 H Lactate Dehydrogenase Total Protein 5.3 L Albumin 3.2 L Ur Total Protein 24 Hr Urine Total Protein 09/12/21 09/12/21 09/15/21 10:54 10:54 05:43 RDW 15.8 H 15.7 H Lymph % (Auto) 36.0 H [place] % (Auto) 8.4 H Sodium 133 L Carbon Dioxide Creatinine 0.5 L Magnesium Alkaline Phosphatase 143 H Lactate Dehydrogenase 240 H Total Protein 5.8 L Albumin 3.2 L Ur Total Protein 24 Hr Urine Total Protein 09/15/21 05:43 RDW Lymph % (Auto) [place] % (Auto) Sodium 135 L Carbon Dioxide 19 L Creatinine Magnesium Alkaline Phosphatase 141 H Lactate Dehydrogenase Total Protein 6.0 L Albumin 3.0 L Ur Total Protein 24 Hr Urine Total Protein
[2021-09-20 11:42] LABS: Hematocrit 35.4 % (30.3-42.9); Hemoglobin 12.3 gm/dl (10.1-14.3); Mean Corpuscular HGB Conc 35 % (30-34); Mean Corpuscular Volume 91 fl (79-97); Platelet Count 276 K/mm3 (140-440); Red Blood Count 3.89 M/mm3 (3.65-5.03); Red Cell Distribution Width 16.1 % (13.2-15.2)
[2021-09-20 12:11] LABS: Alanine Aminotransferase 6 units/L (7-56); Uric Acid 5.5 mg/dL (3.5-7.6)
--- NOTE | 2021-09-20 16:56 | Ultrasound Report ---
ULTRASOUND OBSTETRIC LIMITED ULTRASOUND BIOPHYSICAL PROFILE INDICATION / CLINICAL INFORMATION: preeclampsia with iugr. - Clinical Gestational Age (GA) in weeks, days: 31, 3 TECHNIQUE: Transabdominal. Umbilical cord Doppler imaging was performed. COMPARISON: Ultrasound dated 09/17/21 FINDINGS: BREATHING MOVEMENT = 0 GROSS BODY MOVEMENT = 2 TONE = 0 QUALITATIVE AMNIOTIC FLUID VOLUME = 2 TOTAL BIOPHYSICAL SCORE = 4/8 HEART RATE (beats per minute): 152 AMNIOTIC FLUID INDEX (cm) = subjectively normal. (normal = 7-24 cm) PRESENTATION: Cephalic. UMBILICAL CORD DOPPLER: - Pulsitivity Index (PI) Average: 2.1 - End diastolic flow: No end diastolic flow. Intermittent. ADDITIONAL FINDINGS: None. IMPRESSION: 1. Biophysical Score = 4/8 . This represents a change since prior study. 2. Umbilical cord Pulsatility index average = 2.1. Signer Name: Sarah Ramirez MD Signed: 09/20/2021 4:52 PM Workstation Name: [id number]
--- NOTE | 2021-09-21 10:18 | Progress Note ---
Assessment and Plan IUP at 31.4wks, chronic HTN, absent diastolic flow on dopplers and BPP 8/8 today, 1. Appreciate APA; will do daily BPP and umb artery dopplers with absent flow, goal is to deliver at 33wks and if reverse diastolic flow, then deliver that day 2. Continue labetalol 400mg every 8hrs which remains normal range 3. Routine care Plan of care encouraged and answered. All questions encouraged and answered Subjective Date of service: 09/21/21 Principal diagnosis: IUP at 31.4wks with chronic HTN, mild preeclampsia Interval history: Pt has no complaints. Pt admits to normal movement, denies headache, ctx, LOF or vag bleed or feeling ctx. Pt had BPP 4/8 and absent diastolic flow. Objective - Constitutional Vitals: Vital Signs - 12hr 09/20/21 09/20/21 09/20/21 22:18 22:23 22:28 Temperature Pulse Rate 93 H 97 H 93 H Respiratory Rate Blood Pressure 127/79 Blood Pressure [Left] O2 Sat by Pulse 97 98 98 Oximetry O2 Sat by Pulse Oximetry [ Anterior Bilateral Throughout] 09/20/21 09/20/21 09/20/21 22:33 22:38 22:43 Temperature Pulse Rate 95 H 95 H 95 H Respiratory Rate Blood Pressure Blood Pressure [Left] O2 Sat by Pulse 98 98 98 Oximetry O2 Sat by Pulse Oximetry [ Anterior Bilateral Throughout] 09/20/21 09/20/21 09/20/21 22:48 22:53 22:58 Temperature Pulse Rate 97 H 99 H 95 H Respiratory Rate Blood Pressure Blood Pressure [Left] O2 Sat by Pulse 99 99 98 Oximetry O2 Sat by Pulse Oximetry [ Anterior Bilateral Throughout] 09/20/21 09/20/21 09/20/21 23:03 23:08 23:13 Temperature Pulse Rate 97 H 98 H 96 H Respiratory Rate Blood Pressure Blood Pressure [Left] O2 Sat by Pulse 99 99 100 Oximetry O2 Sat by Pulse Oximetry [ Anterior Bilateral Throughout] 09/20/21 09/20/21 09/20/21 23:18 23:19 23:23 Temperature Pulse Rate 100 H 90 91 H Respiratory Rate Blood Pressure 120/74 Blood Pressure [Left] O2 Sat by Pulse 98 98 Oximetry O2 Sat by Pulse Oximetry [ Anterior Bilateral Throughout] 09/20/21 09/20/2122 23:28 23:33 23:38 Temperature Pulse Rate 95 H 90 92 H Respiratory Rate Blood Pressure Blood Pressure [Left] O2 Sat by Pulse 99 98 98 Oximetry O2 Sat by Pulse Oximetry [ Anterior Bilateral Throughout] 09/20/21 09/20/21 09/20/21 23:43 23:48 23:53 Temperature Pulse Rate 90 99 H 95 H Respiratory Rate Blood Pressure Blood Pressure [Left] O2 Sat by Pulse 99 98 99 Oximetry O2 Sat by Pulse Oximetry [ Anterior Bilateral Throughout] 09/20/21 09/21/21 09/21/21 23:58 00:03 00:08 Temperature Pulse Rate 95 H 91 H 92 H Respiratory Rate Blood Pressure Blood Pressure [Left] O2 Sat by Pulse 98 98 98 Oximetry O2 Sat by Pulse Oximetry [ Anterior Bilateral Throughout] 09/21/21 09/21/21 09/21/21 00:17 00:18 00:22 Temperature Pulse Rate 90 88 88 Respiratory Rate Blood Pressure 120/77 Blood Pressure [Left] O2 Sat by Pulse 98 90 97 Oximetry O2 Sat by Pulse Oximetry [ Anterior Bilateral Throughout] 09/21/21 09/21/21 09/21/21 00:27 00:32 00:37 Temperature Pulse Rate 91 H 89 94 H Respiratory Rate Blood Pressure Blood Pressure [Left] O2 Sat by Pulse 97 99 97 Oximetry O2 Sat by Pulse Oximetry [ Anterior Bilateral Throughout] 09/21/21 09/21/21 09/21/21 00:42 00:47 00:52 Temperature Pulse Rate 86 80 83 Respiratory Rate Blood Pressure Blood Pressure [Left] O2 Sat by Pulse 98 99 98 Oximetry O2 Sat by Pulse Oximetry [ Anterior Bilateral Throughout] 09/21/21 09/21/21 09/21/21 00:57 01:02 01:07 Temperature Pulse Rate 84 89 89 Respiratory Rate Blood Pressure Blood Pressure [Left] O2 Sat by Pulse 99 99 98 Oximetry O2 Sat by Pulse Oximetry [ Anterior Bilateral Throughout] 09/21/21 09/21/21 09/21/21 01:12 01:17 01:18 Temperature Pulse Rate 83 83 87 Respiratory Rate Blood Pressure 135/83 Blood Pressure [Left] O2 Sat by Pulse 99 99 Oximetry O2 Sat by Pulse Oximetry [ Anterior Bilateral Throughout] 09/21/21 09/21/21 09/21/21 01:22 01:27 01:32 Temperature Pulse Rate 87 83 85 Respiratory Rate Blood Pressure Blood Pressure [Left] O2 Sat by Pulse 99 98 99 Oximetry O2 Sat by Pulse Oximetry [ Anterior Bilateral Throughout] 09/21/21 09/21/21 09/21/21 01:36 01:37 01:42 Temperature 98.1 F Pulse Rate 90 81 Respiratory 18 Rate Blood Pressure Blood Pressure [Left] O2 Sat by Pulse 97 96 99 Oximetry O2 Sat by Pulse Oximetry [ Anterior Bilateral Throughout] 09/21/21 09/21/21 09/21/21 01:47 01:52 01:57 Temperature Pulse Rate 84 95 H 103 H Respiratory Rate Blood Pressure Blood Pressure [Left] O2 Sat by Pulse 98 97 95 Oximetry O2 Sat by Pulse Oximetry [ Anterior Bilateral Throughout] 09/21/21 09/21/21 09/21/21 02:02 02:05 02:07 Temperature Pulse Rate 92 H 82 87 Respiratory Rate Blood Pressure Blood Pressure [Left] O2 Sat by Pulse 97 94 95 Oximetry O2 Sat by Pulse Oximetry [ Anterior Bilateral Throughout] 09/21/21 09/21/21 09/21/21 02:12 02:17 02:18 Temperature Pulse Rate 84 85 81 Respiratory Rate Blood Pressure 119/70 Blood Pressure [Left] O2 Sat by Pulse 98 96 Oximetry O2 Sat by Pulse Oximetry [ Anterior Bilateral Throughout] 09/21/21 09/21/21 09/21/21 02:22 02:27 02:32 Temperature Pulse Rate 84 83 85 Respiratory Rate Blood Pressure Blood Pressure [Left] O2 Sat by Pulse 98 98 98 Oximetry O2 Sat by Pulse Oximetry [ Anterior Bilateral Throughout] 09/21/21 09/21/21 09/21/21 02:37 02:42 02:47 Temperature Pulse Rate 101 H 97 H 82 Respiratory Rate Blood Pressure Blood Pressure [Left] O2 Sat by Pulse 99 98 98 Oximetry O2 Sat by Pulse Oximetry [ Anterior Bilateral Throughout] 09/21/21 09/21/21 09/21/21 02:52 02:57 03:02 Temperature Pulse Rate 83 83 79 Respiratory Rate Blood Pressure Blood Pressure [Left] O2 Sat by Pulse 98 99 99 Oximetry O2 Sat by Pulse Oximetry [ Anterior Bilateral Throughout] 09/21/21 09/21/21 09/21/21 03:07 03:12 03:17 Temperature Pulse Rate 81 82 88 Respiratory Rate Blood Pressure Blood Pressure [Left] O2 Sat by Pulse 98 98 97 Oximetry O2 Sat by Pulse Oximetry [ Anterior Bilateral Throughout] 09/21/21 09/21/21 09/21/21 03:18 03:22 03:27 Temperature Pulse Rate 84 108 H 95 H Respiratory Rate Blood Pressure 132/72 Blood Pressure [Left] O2 Sat by Pulse 99 97 Oximetry O2 Sat by Pulse Oximetry [ Anterior Bilateral Throughout] 09/21/21 09/21/21 09/21/21 03:47 03:52 03:57 Temperature Pulse Rate 90 87 87 Respiratory Rate Blood Pressure Blood Pressure [Left] O2 Sat by Pulse 98 99 98 Oximetry O2 Sat by Pulse Oximetry [ Anterior Bilateral Throughout] 09/21/21 09/21/21 09/21/21 04:02 04:07 04:12 Temperature Pulse Rate 86 87 84 Respiratory Rate Blood Pressure Blood Pressure [Left] O2 Sat by Pulse 98 98 97 Oximetry O2 Sat by Pulse Oximetry [ Anterior Bilateral Throughout] 09/21/21 09/21/21 09/21/21 04:17 04:22 04:27 Temperature Pulse Rate 84 85 81 Respiratory Rate Blood Pressure Blood Pressure [Left] O2 Sat by Pulse 98 99 98 Oximetry O2 Sat by Pulse Oximetry [ Anterior Bilateral Throughout] 09/21/21 09/21/21 09/21/21 04:32 04:37 04:38 Temperature Pulse Rate 84 85 84 Respiratory Rate Blood Pressure Blood Pressure [Left] O2 Sat by Pulse 98 98 93 Oximetry O2 Sat by Pulse Oximetry [ Anterior Bilateral Throughout] 09/21/21 09/21/21 09/21/21 04:42 04:47 04:52 Temperature Pulse Rate 87 86 83 Respiratory Rate Blood Pressure Blood Pressure [Left] O2 Sat by Pulse 98 98 98 Oximetry O2 Sat by Pulse Oximetry [ Anterior Bilateral Throughout] 09/21/21 09/21/21 09/21/21 04:57 05:02 05:07 Temperature Pulse Rate 82 95 H 88 Respiratory Rate Blood Pressure Blood Pressure [Left] O2 Sat by Pulse 97 100 98 Oximetry O2 Sat by Pulse Oximetry [ Anterior Bilateral Throughout] 09/21/21 09/21/21 09/21/21 05:12 05:17 05:22 Temperature Pulse Rate 86 81 84 Respiratory Rate Blood Pressure Blood Pressure [Left] O2 Sat by Pulse 98 98 98 Oximetry O2 Sat by Pulse Oximetry [ Anterior Bilateral Throughout] 09/21/21 09/21/21 09/21/21 05:27 05:32 05:37 Temperature Pulse Rate 80 79 86 Respiratory Rate Blood Pressure Blood Pressure [Left] O2 Sat by Pulse 97 98 97 Oximetry O2 Sat by Pulse Oximetry [ Anterior Bilateral Throughout] 09/21/21 09/21/21 09/21/21 05:38 05:42 05:43 Temperature Pulse Rate 77 73 99 H Respiratory Rate Blood Pressure Blood Pressure [Left] O2 Sat by Pulse 94 96 93 Oximetry O2 Sat by Pulse Oximetry [ Anterior Bilateral Throughout] 09/21/21 09/21/21 09/21/21 05:47 05:53 05:58 Temperature Pulse Rate 93 H 99 H 78 Respiratory Rate Blood Pressure 143/83 Blood Pressure [Left] O2 Sat by Pulse 98 93 97 Oximetry O2 Sat by Pulse Oximetry [ Anterior Bilateral Throughout] 09/21/21 09/21/21 09/21/21 06:03 06:08 06:13 Temperature Pulse Rate 83 79 101 H Respiratory Rate Blood Pressure Blood Pressure [Left] O2 Sat by Pulse 99 98 98 Oximetry O2 Sat by Pulse Oximetry [ Anterior Bilateral Throughout] 09/21/21 09/21/21 09/21/21 06:18 06:23 06:28 Temperature Pulse Rate 93 H 87 102 H Respiratory Rate Blood Pressure Blood Pressure [Left] O2 Sat by Pulse 98 98 97 Oximetry O2 Sat by Pulse Oximetry [ Anterior Bilateral Throughout] 09/21/21 09/21/21 09/21/21 06:33 06:38 06:43 Temperature Pulse Rate 87 84 83 Respiratory Rate Blood Pressure Blood Pressure [Left] O2 Sat by Pulse 98 98 97 Oximetry O2 Sat by Pulse Oximetry [ Anterior Bilateral Throughout] 09/21/21 09/21/21 09/21/21 06:48 06:53 06:58 Temperature Pulse Rate 88 89 83 Respiratory Rate Blood Pressure Blood Pressure [Left] O2 Sat by Pulse 98 97 98 Oximetry O2 Sat by Pulse Oximetry [ Anterior Bilateral Throughout] 09/21/21 09/21/21 09/21/21 07:03 07:08 07:13 Temperature Pulse Rate 83 81 93 H Respiratory Rate Blood Pressure Blood Pressure [Left] O2 Sat by Pulse 97 97 97 Oximetry O2 Sat by Pulse Oximetry [ Anterior Bilateral Throughout] 09/21/21 09/21/21 09/21/21 07:18 07:23 07:27 Temperature 98.5 F Pulse Rate 91 H 92 H 92 H Respiratory 16 Rate Blood Pressure 125/75 Blood Pressure 125/75 [Left] O2 Sat by Pulse 97 98 98 Oximetry O2 Sat by Pulse Oximetry [ Anterior Bilateral Throughout] 09/21/21 09/21/21 09/21/21 07:28 07:31 07:33 Temperature Pulse Rate 97 H 97 H Respiratory Rate Blood Pressure Blood Pressure [Left] O2 Sat by Pulse 98 98 Oximetry O2 Sat by Pulse 99 Oximetry [ Anterior Bilateral Throughout] 09/21/21 09/21/21 09/21/21 08:08 08:13 08:18 Temperature Pulse Rate 93 H 89 95 H Respiratory Rate Blood Pressure 134/79 Blood Pressure [Left] O2 Sat by Pulse 99 100 99 Oximetry O2 Sat by Pulse Oximetry [ Anterior Bilateral Throughout] 09/21/21 09/21/21 09/21/21 08:23 08:28 08:33 Temperature Pulse Rate 100 H 90 91 H Respiratory Rate Blood Pressure Blood Pressure [Left] O2 Sat by Pulse 99 99 100 Oximetry O2 Sat by Pulse Oximetry [ Anterior Bilateral Throughout] 09/21/21 09/21/21 09/21/21 08:38 08:43 08:45 Temperature Pulse Rate 89 96 H 85 Respiratory Rate Blood Pressure Blood Pressure [Left] O2 Sat by Pulse 100 99 77 L Oximetry O2 Sat by Pulse Oximetry [ Anterior Bilateral Throughout] 09/21/21 09/21/21 09/21/21 08:48 08:53 08:58 Temperature Pulse Rate 86 90 86 Respiratory Rate Blood Pressure Blood Pressure [Left] O2 Sat by Pulse 93 99 98 Oximetry O2 Sat by Pulse Oximetry [ Anterior Bilateral Throughout] 09/21/21 09/21/21 09/21/21 09:03 09:08 09:13 Temperature Pulse Rate 84 87 91 H Respiratory Rate Blood Pressure 135/76 Blood Pressure [Left] O2 Sat by Pulse 98 97 96 Oximetry O2 Sat by Pulse Oximetry [ Anterior Bilateral Throughout] 09/21/21 09/21/21 09/21/21 09:18 09:23 09:28 Temperature Pulse Rate 88 90 86 Respiratory Rate Blood Pressure Blood Pressure [Left] O2 Sat by Pulse 97 96 97 Oximetry O2 Sat by Pulse Oximetry [ Anterior Bilateral Throughout] 09/21/21 09/21/21 09/21/21 09:33 09:38 09:43 Temperature Pulse Rate 89 87 88 Respiratory Rate Blood Pressure Blood Pressure [Left] O2 Sat by Pulse 97 97 97 Oximetry O2 Sat by Pulse Oximetry [ Anterior Bilateral Throughout] 09/21/21 09/21/21 09/21/21 09:48 09:53 09:58 Temperature Pulse Rate 95 H 96 H 92 H Respiratory Rate Blood Pressure Blood Pressure [Left] O2 Sat by Pulse 100 99 99 Oximetry O2 Sat by Pulse Oximetry [ Anterior Bilateral Throughout] 09/21/21 10:03 Temperature Pulse Rate 92 H Respiratory Rate Blood Pressure Blood Pressure [Left] O2 Sat by Pulse 100 Oximetry O2 Sat by Pulse Oximetry [ Anterior Bilateral Throughout] General appearance: Present: no acute distress - Respiratory Respiratory effort: normal - Cardiovascular Rhythm: regular Extremities: No edema - Gastrointestinal General gastrointestinal: Present: soft, non-tender - Genitourinary Female genitourinary: other (FHR 140's, BPP 8/8 with adequate fluid; absent diastolic flow to all vessels) - Integumentary Integumentary: warm, dry - Neurologic Neurologic: CNII-XII intact - Psychiatric Psychiatric: appropriate mood/affect - Labs CBC & Chem 7: 09/20/21 11:29 09/20/21 11:29 Labs: Abnormal lab results 09/20/21 09/20/21 Range/Units 11:29 11:29 MCHC 35 H (30-34) % RDW 16.1 H (13.2-15.2) % ALT 6 L (7-56) units/L Lactate Dehydrogenase 199 H (91-180) units/L Medications & Allergies - Medications Allergies/Adverse Reactions: Allergies No Known Allergies Allergy (Verified 09/07/21 09:38) Home Medications: Home Medications Medication Instructions Recorded Confirmed Last Taken Type No Known Home Medications [No 09/08/21 09/08/21 Unknown History Reported Home Medications] Active Medications: Generic Name Dose Route Start Last Admin Trade Name Freq PRN Reason Stop Dose Admin Acetaminophen 650 mg 09/05/21 18:56 09/05/21 20:21 Acetaminophen 325 Mg Tab PO 650 mg Q4H PRN Administration Pain, Mild (1-3) Aspirin 81 mg 09/08/21 10:00 09/20/21 09:59 Aspirin Ec 81 Mg Tab PO 81 mg QDAY SHERYL Administration Hydralazine HCl 10 mg 09/06/21 06:18 Hydralazine 20 Mg/1 Ml Inj IV ONCE PRN Blood Pressure Lactated Ringer's 1,000 mls @ 125 mls/hr 09/05/21 19:00 09/15/21 17:03 Lactated Ringers IV 100 mls/hr DIRECT SHERYL Administration Labetalol HCl 20 mg 09/06/21 05:54 09/07/21 11:06 Labetalol 20 Mg/4 Ml Inj IV 20 mg ONCE PRN Administration Blood Pressure Labetalol HCl 40 mg 09/06/21 06:12 Labetalol 100 Mg/20 Ml Inj Mdv IV ONCE PRN Blood Pressure Labetalol HCl 80 mg 09/06/21 06:15 Labetalol 100 Mg/20 Ml Inj Mdv IV ONCE PRN Blood Pressure Labetalol HCl 400 mg 09/13/21 10:00 09/21/21 09:08 Labetalol 200 Mg Tab PO 400 mg Q8H SHERYL Administration Zolpidem Tartrate 5 mg 09/11/21 18:37 09/12/21 23:39 Zolpidem 5 Mg Tab PO 5 mg QHS PRN Administration Sleep
--- NOTE | 2021-09-21 10:59 | Ultrasound Report ---
ULTRASOUND OB VELOCIMETRY UMBILICAL ARTERY INDICATION: Evaluate circulation to the fetus. TECHNIQUE: Transabdominal ultrasound with color and spectral Doppler imaging COMPARISON: Umbilical cord doppler performed on 09/20/2021. FINDINGS: 3 segments of the umbilical cord were evaluated. heart rate measures 152 bpm. The spectral wave forms are normal and persistent. PI average is 2.0 with persistent flow noted. Signer Name: Harry Park MD Signed: 09/21/2021 10:55 AM Workstation Name: [id number]
--- NOTE | 2021-09-21 11:05 | Ultrasound Report ---
ULTRASOUND BIOPHYSICAL PROFILE INDICATION / CLINICAL INFORMATION: growth restriction. COMPARISON: Biophysical profile performed yesterday FINDINGS: BREATHING MOVEMENT = 2 GROSS BODY MOVEMENT = 2 TONE = 2 QUALITATIVE AMNIOTIC FLUID VOLUME = 2 TOTAL BIOPHYSICAL SCORE = 8/8 AMNIOTIC FLUID INDEX (cm) = subjectively normal. PRESENTATION: Cephalic. HEART RATE (beats per minute): 149 bpm IMPRESSION: 1. biophysical profile = 12/12 Scribed by: Lucinda Barbosa RDMS, RVT, RON Scribed: 09/21/2021 9:58 AM I have reviewed the images, agree with this report, and edited this report as needed. Signer Name: Donte Davies MD Signed: 09/21/2021 11:01 AM Workstation Name: [employer]
--- NOTE | 2021-09-21 16:39 | Consultation ---
History of Present Illness Consult date: 09/21/21 Requesting physician: ROSENDO PRICE History of present illness: Ms. Patel is a 41 y/o AUDREY 11/19/21 EGA at 31 4/7 weeks sent in from OB' office with elevated BP's and CORRAL ? Denies H/O CHTN - states started on Labetalol early in ? around 20 weeks BP in ob office 09/05/21 at 155/96 09/21/21 BP's improved 144/83, 122/81 and 145/88 Denies CORRAL's [place] or RUQ Pain Pos ONTD screen P 24 Hour Urine Prot - 898 ( 24 Hour Urine Prot at 109 mg on 05/12/21 ) 09/12/21 AST/ALT at 14/9 Plts at 271 H/H at 12.2/39 Creat at .5 09/21/21 AST/ALT at 13/6 Plts at 276 H/H at 12/35 Creat at .6 [facility] US 09/05/21 EFW at 1127 mg / 24 hours - at 5% with AC at 3.7% - FGR BPP 12/12 09/21/21 BPP 12/12 Cord doppler - AEDF - Persistent EFM 145 no decels Labetalol started 100 mg BID in April - 400 TID Abd obese NT no ruq tenderness ext tr edema dtr 2/4 no clonus Past History Past Medical History: hypertension - Obstetrical History : 2 Medications and Allergies Allergies Allergy/AdvReac Type Severity Reaction Status Date / Time No Known Allergies Allergy Verified 09/07/21 09:38 Home Medications Medication Instructions Recorded Confirmed Last Taken Type No Known Home Medications [No 09/08/21 09/08/21 Unknown History Reported Home Medications] Active Meds: Active Medications Acetaminophen (Acetaminophen 325 Mg Tab) 650 mg PO Q4H PRN PRN Reason: Pain, Mild (1-3) Last Admin: 09/05/21 20:21 Dose: 650 mg Aspirin (Aspirin Ec 81 Mg Tab) 81 mg PO QDAY [facility] Last Admin: 09/20/21 09:59 Dose: 81 mg Hydralazine HCl (Hydralazine 20 Mg/1 Ml Inj) 10 mg IV ONCE PRN PRN Reason: Blood Pressure Lactated Ringer's (Lactated Ringers) 1,000 mls @ 125 mls/hr IV DIRECT SHERYL Last Admin: 09/15/21 17:03 Dose: 100 mls/hr Labetalol HCl (Labetalol 20 Mg/4 Ml Inj) 20 mg IV ONCE PRN PRN Reason: Blood Pressure Last Admin: 09/07/21 11:06 Dose: 20 mg Labetalol HCl (Labetalol 100 Mg/20 Ml Inj Mdv) 40 mg IV ONCE PRN PRN Reason: Blood Pressure Labetalol HCl (Labetalol 100 Mg/20 Ml Inj Mdv) 80 mg IV ONCE PRN PRN Reason: Blood Pressure Labetalol HCl (Labetalol 200 Mg Tab) 400 mg PO Q8H [facility] Last Admin: 09/21/21 09:08 Dose: 400 mg Zolpidem Tartrate (Zolpidem 5 Mg Tab) 5 mg PO QHS PRN PRN Reason: Sleep Last Admin: 09/12/21 23:39 Dose: 5 mg - Vital Signs Vital signs: Vital Signs Pulse Pulse Ox 89 99 09/05/21 18:06 09/05/21 18:06 Temp Pulse Resp BP Pulse Ox 98.5 F 98 H 16 117/66 100 09/21/21 07:27 09/21/21 16:32 09/21/21 07:27 09/21/21 16:08 09/21/21 16:32 Results Result Diagrams: 09/20/21 11:29 09/20/21 11:29 All other labs normal. Assessment and Plan Assessment and Plan 1. [place] IUP at 31 4/7 weeks 2. Suspected CHTN with Superimposed Preeclampsia 3. FGR with AEDF 4. Pos ONTD Screen 5. AMA - NIPT Neg - Please have OB confirm Recommendations 1. Delivery for S/S of severe preeclampsia or compromise goal is delivery at 33 weeks for persistent AEDF - BPP and cord arterial dopplers daily - deliver for Reversal EDF or abnormal BPP/EFM should this occur prior to 33 weeks 2. Continue Labetalol 400 TID 3. 24 Hour urine - 898 4. IV Labetalol/Hydralazine for BP's Sys > 160 or [place] > 110 5. Delivery for S/S of severe preeclampsia or compromise 6. LDA q day 7. S/P steroids for FLM 8. Serial US for growth q 2-[address] Price
--- NOTE | 2021-09-22 09:43 | Progress Note ---
Assessment and Plan IUP at 31.5wks, chronic HTN with mild preeclampsia, persistent absent diastolic flow with BPP 6/8 then breathing noted later after 1hr 1. Appreciate APA, would recommend delivery if BPP 6/8 and absent flow, will repeat BPP in 6-8hrs and if 6/8 then will start induction. Pt counseled on cook's tran balloon and softening cervix 2. U/S with cephalic presentation which is when I saw breathing 3. Continue labetalol 400mg every 8hrs 4. Nurse told continuous monitoring with absent diastolic flow since 2days ago and order placed in the computer 5. NICU notified for impending delivery via c/section if FHR without accels. Pt also given plan of care. Low threshhold for delivery All questions encouraged and answered Subjective Date of service: 09/22/21 Principal diagnosis: IUP at 31.5wks with chronic HTN, mild preeclampsia Interval history: pt has no complaints and states her baby is moving more today than yesterday. Denies LOF or vag bleed or feeling ctx or headache. Objective - Constitutional Vitals: Vital Signs - 12hr 09/21/21 09/21/21 09/22/21 22:58 23:08 00:08 Temperature Pulse Rate 88 88 88 Respiratory Rate Blood Pressure 120/64 116/66 126/71 O2 Sat by Pulse Oximetry 09/22/21 09/22/21 09/22/21 01:08 02:08 02:17 Temperature Pulse Rate 92 H 81 80 Respiratory Rate Blood Pressure 130/84 111/70 144/86 O2 Sat by Pulse Oximetry 09/22/21 09/22/21 09/22/21 02:19 02:20 02:22 Temperature Pulse Rate 100 H 80 89 Respiratory Rate Blood Pressure 144/86 O2 Sat by Pulse 85 86 Oximetry 09/22/21 09/22/21 09/22/21 02:23 02:25 02:54 Temperature 98.4 F Pulse Rate 65 Respiratory 16 Rate Blood Pressure O2 Sat by Pulse 98 81 L 93 Oximetry 09/22/21 09/22/21 09/22/21 03:08 03:09 03:13 Temperature Pulse Rate 93 H 64 65 Respiratory Rate Blood Pressure 111/67 O2 Sat by Pulse 93 94 88 Oximetry 09/22/21 09/22/21 09/22/21 03:31 03:39 03:41 Temperature Pulse Rate 73 64 Respiratory Rate Blood Pressure O2 Sat by Pulse 61 L 94 93 Oximetry 09/22/21 09/22/21 09/22/21 03:44 03:49 03:51 Temperature Pulse Rate 61 68 Respiratory Rate Blood Pressure O2 Sat by Pulse 93 85 91 Oximetry 09/22/21 09/22/21 09/22/21 03:55 03:56 04:00 Temperature Pulse Rate 63 159 H Respiratory Rate Blood Pressure O2 Sat by Pulse 93 95 89 Oximetry 09/22/21 09/22/21 09/22/21 04:02 04:06 04:08 Temperature Pulse Rate 169 H 62 Respiratory Rate Blood Pressure 142/85 O2 Sat by Pulse 92 89 92 Oximetry 09/22/21 09/22/21 09/22/21 04:18 04:51 05:08 Temperature Pulse Rate 150 H 64 63 Respiratory Rate Blood Pressure 118/68 O2 Sat by Pulse 93 92 92 Oximetry 09/22/21 09/22/21 09/22/21 06:17 06:58 06:59 Temperature Pulse Rate 83 90 90 Respiratory Rate Blood Pressure 122/66 132/76 O2 Sat by Pulse 99 Oximetry 09/22/21 09/22/21 09/22/21 07:04 07:08 07:09 Temperature Pulse Rate 84 88 88 Respiratory Rate Blood Pressure 129/76 O2 Sat by Pulse 98 99 Oximetry 09/22/21 09/22/21 09/22/21 07:14 07:19 07:24 Temperature 98.7 F Pulse Rate 91 H 86 85 Respiratory 16 Rate Blood Pressure O2 Sat by Pulse 99 99 100 Oximetry 09/22/21 09/22/21 09/22/21 07:29 07:34 07:39 Temperature Pulse Rate 82 85 90 Respiratory Rate Blood Pressure O2 Sat by Pulse 99 98 99 Oximetry 09/22/21 09/22/21 09/22/21 07:44 07:49 09:31 Temperature Pulse Rate 88 84 92 H Respiratory Rate Blood Pressure O2 Sat by Pulse 99 98 98 Oximetry 09/22/21 09:36 Temperature Pulse Rate 92 H Respiratory Rate Blood Pressure O2 Sat by Pulse 98 Oximetry General appearance: Present: no acute distress - Neck Neck: normal ROM - Respiratory Respiratory effort: normal - Breasts Breasts: deferred - Cardiovascular Rhythm: regular Extremities: No edema - Gastrointestinal General gastrointestinal: Present: soft, non-tender - Genitourinary Female genitourinary: deferred, other (soft, non-tender, gravid; cervix 1/long/high; FHR 150-160's without acceleration in 19mins) - Neurologic Neurologic: moves all extremities - Psychiatric Psychiatric: cooperative - Labs CBC & Chem 7: 09/20/21 11:29 09/20/21 11:29 Medications & Allergies - Medications Allergies/Adverse Reactions: Allergies No Known Allergies Allergy (Verified 09/07/21 09:38) Home Medications: Home Medications Medication Instructions Recorded Confirmed Last Taken Type No Known Home Medications [No 09/08/21 09/08/21 Unknown History Reported Home Medications] Active Medications: Generic Name Dose Route Start Last Admin Trade Name Freq PRN Reason Stop Dose Admin Acetaminophen 650 mg 09/05/21 18:56 09/05/21 20:21 Acetaminophen 325 Mg Tab PO 650 mg Q4H PRN Administration Pain, Mild (1-3) Aspirin 81 mg 09/08/21 10:00 09/20/21 09:59 Aspirin Ec 81 Mg Tab PO 81 mg QDAY SHERYL Administration Hydralazine HCl 10 mg 09/06/21 06:18 Hydralazine 20 Mg/1 Ml Inj IV ONCE PRN Blood Pressure Lactated Ringer's 1,000 mls @ 125 mls/hr 09/05/21 19:00 09/15/21 17:03 Lactated Ringers IV 100 mls/hr DIRECT SHERYL Administration Labetalol HCl 20 mg 09/06/21 05:54 09/07/21 11:06 Labetalol 20 Mg/4 Ml Inj IV 20 mg ONCE PRN Administration Blood Pressure Labetalol HCl 40 mg 09/06/21 06:12 Labetalol 100 Mg/20 Ml Inj Mdv IV ONCE PRN Blood Pressure Labetalol HCl 80 mg 09/06/21 06:15 Labetalol 100 Mg/20 Ml Inj Mdv IV ONCE PRN Blood Pressure Labetalol HCl 400 mg 09/13/21 10:00 09/22/21 02:20 Labetalol 200 Mg Tab PO 400 mg Q8H SHERYL Administration Zolpidem Tartrate 5 mg 09/11/21 18:37 09/12/21 23:39 Zolpidem 5 Mg Tab PO 5 mg QHS PRN Administration Sleep
--- NOTE | 2021-09-22 09:55 | Ultrasound Report ---
ULTRASOUND BIOPHYSICAL PROFILE INDICATION: BPP daily at 8am with absent diastolic flow. COMPARISON: Yesterday FINDINGS: heart rate is 152 beats per minute. breathing movement = 0 Gross body movement = 2 tone = 2 Qualitative amniotic fluid volume = 2 IMPRESSION: biophysical profile = 10/12 Signer Name: Orlando Finch Jr, MD Signed: 09/22/2021 9:51 AM Workstation Name: [id number]
--- NOTE | 2021-09-22 09:55 | Ultrasound Report ---
ULTRASOUND OB VELOCIMETRY UMBILICAL ARTERY HISTORY: Absent diastolic flow TECHNIQUE: Transabdominal ultrasound with color and spectral Doppler imaging COMPARISON: 09/21/2021 FINDINGS: 3 segments of the umbilical cord were evaluated. heart rate measures 138 bpm. Intermittent loss of end-diastolic flow is again demonstrated. The pulsatility index average measures 1.5. Signer Name: Orlando Finch Jr, MD Signed: 09/22/2021 9:50 AM Workstation Name: [id number]
[2021-09-22] MEDS: ASPIRIN EC 81 MG TAB PO SCH (11:00)
[2021-09-22 11:18] LABS: Basophils % (Auto) 0.5 % (0.0-1.8); Eosinophils # (Auto) 0.2 K/mm3 (0.0-0.4); Eosinophils % (Auto) 2.1 % (0.0-4.3); Hematocrit 36.8 % (30.3-42.9); Hemoglobin 11.8 gm/dl (10.1-14.3); Lymphocytes # (Auto) 2.5 K/mm3 (1.2-5.4); Lymphocytes % (Auto) 32.7 % (13.4-35.0); Mean Corpuscular HGB Conc 32 % (30-34); Mean Corpuscular Volume 93 fl (79-97); Monocytes # (Auto) 0.8 K/mm3 (0.0-0.8); Monocytes % (Auto) 10.5 % (0.0-7.3); Platelet Count 270 K/mm3 (140-440); Red Blood Count 3.94 M/mm3 (3.65-5.03); Red Cell Distribution Width 16.2 % (13.2-15.2)
--- NOTE | 2021-09-22 12:17 | Event Note ---
Date: 09/22/21 charge nurse notified of decel sporadic to the 60's and sporadic smaller variables, it had acceleration for a short period however but only once in 1hr. Will cancel repeat BPP and plan on primary c/section at 4:30pm today. Pt counseled and consents obtained and anesthesia and NICU notified. Will do emergently if recurrent severe variables inspite of no contractions. All questions encouraged and answered.
[2021-09-22] MEDS ORDERED: LACTATED RINGERS 1,000 ML IV SCH (13:30)
[2021-09-22] MEDS ORDERED: OXYTOCIN DRIP 30 UNITS/500 ML BAG IV SCH (14:00)
[2021-09-22] MEDS ORDERED: ceFAZolin/Water 2 GM/20 ML 2 GM/20 ML SYRINGE IV SCH (14:00)
[2021-09-22] MEDS ORDERED: BICITRA ORAL LIQD 30ML PO ONE (14:00)
[2021-09-22] MEDS ORDERED: METOCLOPRAMIDE 10 MG/2 ML INJ IV ONE (14:00)
[2021-09-22] MEDS ORDERED: FAMOTIDINE 20 MG/2 ML INJ IV ONE (14:00)
--- NOTE | 2021-09-22 14:57 | Event Note ---
Date: 09/22/21 pt not improving. NICU and anesthesia notified and will proceed to OR now. pt agreeable.
[2021-09-22] MEDS ORDERED: CARBOPROST TROMETHAMINE 250 MCG/1 ML INJ IM ONE (15:02)
[2021-09-22] MEDS ORDERED: miSOPROStol 200 MCG TAB ONE (15:02)
--- NOTE | 2021-09-22 15:38 | Anesthesia Day of Surgery ---
Anesthesia Day of Surgery - Day of Surgery Patient Examined: Yes Patient H&P Reviewed: Yes Patient is NPO: Yes (breakfast at 0800. NPO 4PM) Beta Blockers: Yes
--- NOTE | 2021-09-22 15:43 | Anesthesia Consultation ---
Anesthesia Consult and Med Hx Date of service: 09/22/21 - Airway Anesthetic Teeth Evaluation: Poor ROM Head & Neck: Adequate Mental/Hyoid Distance: Adequate Mallampati Class: Class II Intubation Access Assessment: Probably Good - Pulmonary Exam CTA: Yes - Cardiac Exam Cardiac Exam: RRR - Pre-Operative Health Status ASA Pre-Surgery Classification: ASA3 Proposed Anesthetic Plan: Epidural, Spinal - Pulmonary Hx Smoking: No Hx Asthma: No COPD: No Hx Pneumonia: No - Cardiovascular System Hx Hypertension: Yes ( superimposed preeclampsia with associated headache and edema.) - Central Nervous System Hx Seizures: No Hx Psychiatric Problems: No - Endocrine Hx Renal Disease: No Hx End Stage Renal Disease: No Hx Hypothyroidism: No Hx Hyperthyroidism: No - Hematic Hx Anemia: No Hx Sickle Cell Disease: No - Other Systems Hx Alcohol Use: No Hx Obesity: Yes
[2021-09-22] MEDS ORDERED: ceFAZolin/STERILE WATER 2 GM/20 ML SYRINGE IV ONE (16:59)
[2021-09-22] MEDS ORDERED: BUPIVACAINE /DEX-WATER 0.75% (2 ML) AMPULE INFILTRATI ONE (17:00)
[2021-09-22] MEDS ORDERED: ONDANSETRON 4 MG/2 ML INJ ONE (17:03)
[2021-09-22] MEDS ORDERED: WATER FOR IRRIG STERILE 1,500 ML BOTTLE IR ONE (17:28)
[2021-09-22] MEDS ORDERED: SODIUM CHLORIDE 0.9% IRR 1,500 ML BOTTLE IR ONE (17:28)
[2021-09-22] MEDS ORDERED: LACTATED RINGERS 1,000 ML ONE ×3 (17:28→18:27)
[2021-09-22] MEDS ORDERED: TRANEXAMIC ACID 1,000 MG/10 ML ONE (17:41)
[2021-09-22] MEDS ORDERED: LIDOCAINE MPF (2%) 20 MG/1 ML VIAL 5 ML ONE (18:00)
[2021-09-22] MEDS ORDERED: BUPIVACAINE/PF (0.25%) 2.5 MG/ML 30 ML VIAL INFILTRATI ONE ×2 (18:37)
[2021-09-22 19:12] LABS: Hematocrit 29.9 % (30.3-42.9)
[2021-09-22] MEDS ORDERED: dexAMETHasone 20 MG/5 ML VIAL ONE (19:35)
--- NOTE | 2021-09-22 19:42 | Progress Note ---
Spinal Anesthesia Block - Spinal Anesthesia Block Start Time: 16:47 Stop Time: 16:57 Performed by:: JEANE MARIE Procedure: H&P and labs reviewed. Procedure explained, questions answered, consent obtained. Patient placed in sitting position with monitors applied. Timeout performed immediately before start of procedure. Prep/drape in usual sterile fashion. Skin localized 3 mL 1% lidocaine at L[4]-L[5] interspace. 17-gauge Tuohy epidural needle advanced to TONY with saline at [8] cmx 2 attempts. No blood/CSF noted via epidural needle. 24g spinal needle advanced into intrathecal space until clear, free flowing CSF noted. 1.4mL 0.75% hyperbaric bupivacaine + 0.5mcg Precedex injected into intrathecal space. Spinal needle removed and epidural catheter advanced to [12] cm. Negative aspiration for blood and CSF via catheter, negative response to test dose 3 ml 1.5% lidocaine w/ epi. Sterile dressing applied followed by tape reinforcement. Patient tolerated procedure well. No immediate complications noted.
--- NOTE | 2021-09-22 19:56 | Progress Note ---
Regional Anesthesia Block - Regional Anesthesia Block Start Time: 19:51 Stop Time: 19:54 Performed By:: JEANE MARIE Procedure: Patient consented for TAP block for post surgical pain management. Patient identified, monitors placed, and time out performed. TAP identified bilaterally via ultrasound. Skin prepped bilaterally with [chlorhexidine] and [22g stimuplex] needle advanced to the TAP. [Marcaine 0.52% 35ml] injected under ultrasound guidance on the [left] side. [Marcaine 0.25% 35ml] injected under ultrasound guidance on the [right] side. Negative aspiration every 5mL, No change in heart rate or rhythm. Patient tolerated the procedure well. No apparent complications seen.
--- NOTE | 2021-09-22 20:07 | Procedure Note ---
OB Delivery Note - Delivery Date of Delivery: 09/22/21 Surgeon: EVANGELINA LOBO - Section Preop diagnosis: other (Chronic HTN with superimposed preeclampsia remote from delivery, Absent diastolic flow, BPP 6/8; Catetory II FHR) Postop diagnosis: same (Adherent posterior placenta) section procedure: primary low transverse, other (curettage through the hysterotomy opening to get the placenta out) Complications: retained placenta Narrative: Date: 09/22/21 Surgeon: Evangelina Lobo MD Preop Dx: IUP at 31.5wks with chronic HTN and now with superimposed placenta remote from delivery and given labetalol 20mg IV in the OR for >160/110; Persistent absent diastolic flow, BPP 6/8; Category II FHR; S/P steroids and neuroprotection Postop Dx: same and retained placenta and hemorrhage Procedure : Primary transverse section and curettage done to thru hysterotomy to remove retained placenta Anesthesia: Epidural Intake: 3500cc crystalloids Output: 600cc clear urine EBL: 1744cc After the risks, benefits and alternatives of procedure discussed, patient signed consents and was taken to the operating room. Pt was given epidural anesthesia. After same was adequate, patient was prepped and draped in the usual sterile fashion. Howard catheter in place and draining clear urine. Pt was given prophylactic antibiotic per protocol and time out was done. Pfannenstiel skin incision was made and taken sharply to the thin fascia and the incision extended using electrocautery. Superior edge of the fascia was grasped with shannan clamps and the rectus muscle using blunt dissection and also using electrocautery. Lower portion of the fascia also sharply. Rectus muscle in the midline and Peritoneal cavity entered bluntly and extended with good visualization of the bladder. Bradley retractor placed without difficulty. The bladder flap above vast engorged vessels was created sharply using metzenbaum scissors. Lower uterine segment transversely with every attempt to go superiorly to the vast engorged vessels that extended upwards and blunt entrance to the level of the amniotic sac and the sac entered using allys clamps. Uterine incision extended using bandage scissors. Infant delivered, bulb suctioned, cord clamped and baby handed to waiting pediatricians. Umbilical artery gas done and same was pH 7.2 and BE-1 and baby taken to NICU. Placenta then delivered in completely and uterine cavity cleared of all clots and debri. The uterus was not exteriorized (failed attempt) and therefore it was closed in 2 layers using 0-monocryl suture in a running locked fashion and then an additional layer of imbrication suture and then a 3rd layer of interrupted figure of 8 sutures x4. Excellent hemostasis noted. The gutters were cleared of clots and debri and anterior peritoneum closed using 3-0 vicryl suture and rectus muscle reapproximated using 0-vicryl suture. Thin Rectus fascia closed with 0-vicryl suture in a continuous fashion and subcutaneous tissue copiously irrigated with normal saline and re-approximated using 3-0 vicryl suture in a running fashion. Excellent hemostasis remains. The skin was closed with 4-0 monocryl suture in a subcutaneous fashion and steristrips placed with pressure dressing. Sponge, lap, instrument and needle counts x3 were normal. Patient tolerated the procedure well and was taken to recovery room stable. Findings: Viable male infant, APGARS 8/9 and weight 1500g. Normal shaped uterus with extensive engorged, large sinuses towards the bladder and retained posterior placenta; Left tube with small cyst of morgagni less than 1cm and right tube wnl and bilateral ovaries wnl. Pathology: fragmented placenta sent to pathology along with endometrial currettings removed with jonnie humphreys. - A at 1 minute: 8 at 5 minutes: 9 Infant Gender: Male (1500g, clear amniotic fluid)
[2021-09-22] MEDS ORDERED: MAGNESIUM SULFATE 4 GM/100 ML BAG IV ONE (23:38)
[2021-09-22] MEDS ORDERED: WITCH HAZEL/ GLYCERIN PAD TP PRN (23:51)
[2021-09-22] MEDS ORDERED: NALOXONE 0.4 MG/1 ML INJ IV PRN (23:51)
[2021-09-22] MEDS ORDERED: LANOLIN/ZINC/DIMETHICONE (LANSINOH) 7 GM TP PRN (23:51)
[2021-09-22] MEDS ORDERED: IBUPROFEN 600 MG TAB PO PRN (23:51)
[2021-09-22] MEDS ORDERED: ACETAMINOPHEN 500 MG TAB PO PRN (23:54)
[2021-09-23] MEDS: HYDROcodone/ACETAMINOPHEN 5-325 MG TAB PO PRN ×3 (00:20→18:14)
[2021-09-23] MEDS ORDERED: MAGNESIUM SULFATE 2 GM/50 ML BAG IV ONE (01:00)
[2021-09-23] MEDS: SODIUM CHLORIDE 0.9% 1000 ML 1,000 ML IV SCH ×2 (01:12→18:06)
[2021-09-23] MEDS: MAGNESIUM SULFATE 40GM/1000ML 40 GM/1,000 ML BAG IV SCH ×2 (02:16→22:54)
[2021-09-23] MEDS ORDERED: MORPHINE 4 MG/1 ML INJ IV STA (03:59)
[2021-09-23 08:04] LABS: Basophils # (Auto) 0.1 K/mm3 (0.0-0.1); Basophils % (Auto) 0.8 % (0.0-1.8); Eosinophils # (Auto) 0.1 K/mm3 (0.0-0.4); Eosinophils % (Auto) 0.5 % (0.0-4.3); Hematocrit 25.7 % (30.3-42.9); Hemoglobin 8.6 gm/dl (10.1-14.3); Lymphocytes # (Auto) 3.3 K/mm3 (1.2-5.4); Lymphocytes % (Auto) 21.6 % (13.4-35.0); Mean Corpuscular HGB Conc 33 % (30-34); Mean Corpuscular Volume 92 fl (79-97); Monocytes # (Auto) 0.9 K/mm3 (0.0-0.8); Monocytes % (Auto) 5.7 % (0.0-7.3); Platelet Count 224 K/mm3 (140-440); Red Cell Distribution Width 16.2 % (13.2-15.2)
[2021-09-23] MEDS ORDERED: KETOROLAC 30 MG/1 ML INJ IV PRN (10:30)
[2021-09-23] MEDS: DOCUSATE SODIUM 100 MG CAP PO SCH ×2 (10:48→22:53)
[2021-09-23] MEDS: FERROUS SULFATE 325 MG TAB PO SCH ×2 (10:49→22:53)
--- NOTE | 2021-09-23 11:10 | Progress Note ---
Assessment and Plan A: day 1 S/P primary LTCS. Chronic hypertension with superimposed preeclampsia, currently receiving magnesium sulfate. BPs well controlled at this time. Anemia. P: Continue Magnesium Sulfate for total of 24 hours after delivery. Continue Amlodipine. Continue oral iron supplements for anemia. Repeat CBC tomorrow morning. Routine /postop care. Continue SCDs until patient is ambulatory. Subjective - Subjective Date of service: 09/23/21 Principal diagnosis: /postop day 1 S/P primary C/S Interval history: Patient denies headache, visual disturbance, N/V. Patient reports: pain well controlled, flatus, no nauseated Objective - Vital Signs Latest vital signs: Vital Signs Temp Pulse Resp BP Pulse Ox Pulse Ox 09/23/21 11:05 86 94 09/23/21 11:03 87 94 09/23/21 10:59 88 97 09/23/21 10:58 88 138/87 09/23/21 10:57 90 94 09/23/21 10:54 99.2 F 90 20 94 09/23/21 10:51 91 H 93 09/23/21 10:48 97 H 95 09/23/21 10:43 89 93 09/23/21 10:38 89 92 09/23/21 10:35 89 93 09/23/21 10:34 94 H 97 09/23/21 10:29 92 H 94 09/23/21 10:25 84 93 09/23/21 10:24 94 H 91 09/23/21 10:18 88 92 09/23/21 10:14 89 92 09/23/21 10:12 88 94 09/23/21 10:09 80 96 09/23/21 10:05 89 93 09/23/21 10:04 89 91 09/23/21 09:59 94 H 93 09/23/21 09:58 95 H 97 09/23/21 09:57 90 115/76 09/23/21 09:53 92 H 93 09/23/21 09:48 90 93 09/23/21 09:43 86 92 09/23/21 09:40 88 93 09/23/21 09:38 88 94 09/23/21 09:34 87 94 09/23/21 09:29 96 H 100 09/23/21 09:26 88 94 09/23/21 09:23 94 H 98 05/20/22 09:19 97 H 94 05/20/22 09:15 90 94 05/20/22 09:13 91 H 94 05/20/22 09:08 94 H 94 05/20/22 09:03 93 H 94 05/20/22 08:58 93 H 99/59 94 05/20/22 08:53 90 95 05/20/22 08:49 94 H 94 05/20/22 08:47 90 94 05/20/22 08:43 92 H 95 05/20/22 08:41 91 H 94 05/20/22 08:39 90 97 05/20/22 08:34 100 H 94 05/20/22 08:29 90 94 05/20/22 08:28 90 94 05/20/22 08:23 88 95 05/20/22 08:19 91 H 98 05/20/22 08:15 95 H 94 05/20/22 08:13 89 94 05/20/22 08:10 86 93 05/20/22 08:08 87 96 0520/22 08:03 84 96 05/20/22 07:59 98.8 F 18 05/20/22 07:58 91 H 116/70 98 05/20/22 07:53 94 H 95 05/20/22 07:51 96 05/20/22 07:48 89 97 05/20/22 07:43 84 98 05/20/22 07:38 86 95 05/20/22 07:33 88 96 05/20/22 07:30 85 94 05/20/22 07:28 89 97 05/20/22 07:23 85 95 05/20/22 07:18 87 97 05/20/22 07:13 88 96 05/20/22 07:08 89 96 05/20/22 07:03 85 96 05/20/22 06:58 99 H 96 05/20/22 06:53 95 H 99 05/20/22 06:52 98 H 91 05/20/22 06:48 91 H 104/70 94 05/20/22 06:46 95 H 93 05/20/22 06:43 90 94 05/20/22 06:40 92 H 94 05/20/22 06:38 92 H 93 05/20/22 06:34 92 H 93 05/20/22 06:33 93 H 93/69 97 052022 06:28 90 95 052022 06:23 91 H 95 052022 06:22 94 H 94 05 06:18 92 H 110/65 94 05 06:17 93 H 93 05 06:13 91 H 95 05 06:12 90 94 05 06:08 93 H 94 05 06:03 92 H 113/67 95 05 05:58 92 H 96 05 05:57 92 H 94 05 05:53 92 H 95 05 05:51 90 93 05 05:48 96 H 118/76 97 05 05:45 92 H 91 05 05:43 92 H 95 05 05:40 93 H 94 05 05:38 92 H 94 05 05:35 90 94 05 05:33 91 H 105/72 96 05 05:29 89 94 05 05:28 95 H 97 05 05:23 88 97 05 05:18 92 H 109/66 93 05 05:16 88 94 05 05:13 94 H 89 05 05:08 93 H 92 05 05:03 94 H 101/62 93 05/20/22 04:58 91 H 91 0520 04:55 90 92 0522 04:53 92 H 92 0522 04:48 90 102/63 93 052022 04:43 85 91 052022 04:41 92 H 92 0520/22 04:38 96 H 93 052022 04:35 95 H 94 052022 04:34 98 H 101/57 052022 04:33 106 H 95 052022 04:31 99.4 F 05 04:30 90 93 05/20/22 04:28 90 92 052022 04:23 92 H 93 052022 04:20 92 H 94 0522 04:18 91 H 104/66 95 05/20/22 04:13 87 97 05/20/22 04:08 101 H 96 05/20/22 04:03 92 H 104/61 96 05/20/22 03:58 92 H 97 05/20/22 03:53 91 H 97 05/20/22 03:48 90 95/58 96 05/20/22 03:43 89 97 05/20/22 03:38 92 H 96 05/20/22 03:33 91 H 92/53 95 05/20/22 03:28 99 H 96 05/20/22 03:27 99.8 F H 05/20/22 03:23 90 95 05/20/22 03:22 96 H 94 05/20/22 03:18 95 H 102/56 97 05/20/22 03:13 92 H 96 05/20/22 03:08 87 96 05/20/22 03:03 89 87/48 96 05/20/22 03:01 86 94 05/20/22 02:58 81 96 05/20/22 02:56 90 94 05/20/22 02:53 83 95 05/20/22 02:50 88 94 05/20/22 02:48 87 109/67 97 05/20/22 02:44 87 94 05/20/22 02:43 87 94 05/20/22 02:38 92 H 92 05/20/22 02:33 91 H 105/61 95 05/20/22 02:32 95 H 90 05/20/22 02:28 91 H 93 05/20/22 02:27 92 H 92 05/20/22 02:23 82 96 05/20/22 02:22 89 94 05/20/22 02:18 86 108/62 95 05/20/22 02:14 86 93 05/20/22 02:13 83 96 05/20/22 02:08 90 91 05/20/22 02:03 87 110/63 93 05/20/22 01:58 86 94 05/20/22 01:53 91 H 92 05/20/22 01:52 90 93 05/20/22 01:48 87 100/58 92 05/20/22 01:43 83 90 05/20/22 01:41 89 91 05/20/22 01:38 87 91 05/20/22 01:33 88 104/56 92 05/20/22 01:30 92 H 92 0520 01:28 92 H 91 0520 01:24 90 92 05 01:23 91 H 88 05 01:18 90 93/51 94 0520 01:13 89 93 05 01:12 84 94 05 01:08 85 93 05 01:06 92 H 94 05 01:03 81 110/63 96 0520 01:01 93 H 93 05 00:58 91 H 97 0520 00:53 85 96 0520 00:51 89 94 0520 00:48 85 116/65 96 0520 00:43 78 96 0520 00:40 88 94 05 00:38 96 H 97 05 00:33 92 H 100/59 97 05 00:28 88 96 05 00:26 88 94 0520 00:23 86 96 05 00:18 92 H 108/61 98 05/20 00:13 89 98 05 00:09 89 93 05 00:08 86 96 05 00:03 90 108/67 98 05/19/22 23:58 81 96 05/19/22 23:53 84 97 05/19/22 23:48 85 111/70 96 0519/22 23:43 82 97 0519/22 23:38 79 97 05/19/22 23:35 86 94 05/19/22 23:33 83 118/65 96 05/19/22 23:28 77 97 05/19/22 23:23 83 98 05/19/22 23:19 78 94 05/19/22 23:18 82 106/62 95 05/19/22 23:13 85 96 05/19/22 23:11 78 93 05/19/22 23:08 79 96 05/19/22 23:03 80 114/64 95 05/19/22 23:02 75 94 05/19/22 22:58 76 95 05/19/22 22:54 77 94 05/19/22 22:53 78 94 05 22:48 74 114/64 96 05 22:45 71 94 05 22:43 75 96 05 22:38 70 96 05 22:33 93 H 105/70 97 09/22/21 22:28 82 98 05 22:23 86 98 05 22:18 87 98 05 22:13 71 98 05 22:08 79 97 05 22:03 76 124/65 98 05 21:58 71 97 05 21:53 76 97 09/22/21 21:48 90 98 05 21:47 80 102/59 05 21:43 80 98 05 21:39 76 88/56 09/22/21 21:38 79 99 09/22/21 21:33 88 96/66 99 09/22/21 21:28 79 98 09/22/21 21:25 98.5 F 09/22/21 21:23 79 98 09/22/21 21:19 80 96/66 09/22/21 21:18 79 99 09/22/21 21:16 166 H 171/130 94 09/22/21 21:15 181 H 167/134 09/22/21 21:13 80 97 09/22/21 21:09 72 94 09/22/21 21:08 70 98 09/22/21 21:03 71 97 09/22/21 20:58 74 97 09/22/21 20:53 73 99 09/22/21 20:50 73 94 09/22/21 20:48 82 100 09/22/21 20:35 78 11 L 104/71 05 20:20 74 15 103/68 05 20:05 73 14 104/67 05 19:50 70 15 88/66 05 19:40 91 H 12 103/60 05 19:35 98.3 F 82 13 95/66 05 14:37 86 100 05 14:32 86 98 05 14:27 88 98 09/22/21 14:22 85 98 09/22/21 14:17 90 127/84 99 09/22/21 14:12 84 99 09/22/21 14:01 84 100 09/22/21 13:59 86 144/94 09/22/21 13:56 90 99 09/22/21 13:51 91 H 100 09/22/21 13:46 94 H 100 09/22/21 13:41 95 H 97 09/22/21 13:36 90 100 09/22/21 13:31 86 100 09/22/21 13:26 90 99 09/22/21 13:21 88 100 09/22/21 13:17 93 H 125/82 09/22/21 13:16 93 H 100 09/22/21 13:11 91 H 100 09/22/21 13:06 90 100 09/22/21 13:01 91 H 98 09/22/21 12:56 88 99 09/22/21 12:51 87 98 09/22/21 12:46 90 99 09/22/21 12:41 90 100 09/22/21 12:36 92 H 99 09/22/21 12:31 88 100 09/22/21 12:26 91 H 99 09/22/21 12:21 86 97 09/22/21 12:16 82 99 09/22/21 12:11 81 99 09/22/21 12:06 85 99 09/22/21 12:01 85 99 09/22/21 11:56 83 98 09/22/21 11:51 84 98 09/22/21 11:46 89 99 09/22/21 11:41 89 99 09/22/21 11:36 83 98 09/22/21 11:31 77 98 09/22/21 11:26 85 97 09/22/21 11:21 90 97 09/22/21 11:16 86 98 09/22/21 11:11 87 98 Intake and Output 09/22/21 09/23/21 09/23/21 23:59 07:59 15:59 Intake Total 3500 Output Total 820 480 450 Balance 2680 -480 -450 Intake: IV 3500 Output: Urine 820 480 450 Indwelling Catheter 100 480 450 Uretheral (Howard) 120 Other: Total, Output Amount 100 100 350 Estimated Blood Loss 1,744 - Exam Cardiovascular: Present: Regular rate Lungs: Present: Clear to auscultation Abdomen: Present: normal appearance, soft, normal bowel sounds. Absent: distention, tenderness, guarding, rigidity Uterus: Present: firm, fundal height below umbilicus. Absent: bogginess, tenderness Extremities: Present: edema (mild pedal edema). Absent: tenderness Incision: Present: dry - Labs Labs: Abnormal lab results 09/22/21 09/22/21 09/22/21 Range/Units 10:21 18:05 18:50 WBC (4.5-11.0) K/mm3 RBC (3.65-5.03) M/mm3 Hgb 10.0 L (10.1-14.3) gm/dl Hct 29.9 L D (30.3-42.9) % RDW 16.2 H (13.2-15.2) % [place] % (Auto) 10.5 H (0.0-7.3) % [place] # (Auto) (0.0-0.8) K/mm3 Seg Neutrophils % (40.0-70.0) % Seg Neutrophils # (1.8-7.7) K/mm3 ABG pH 7.280 L (7.320-7.450) POC ABG pCO2 57.4 H (32.0-48.0) mmHg POC ABG pO2 11.1 L (83-108) mmHg ABG Oxyhemoglobin 14.5 L (94-98) ABG Methemoglobin 1.6 H (0.0-1.5) ABG Sodium 135.7 L (136.0-145.0) mmol/L ABG Glucose 57 L (65-95) mg/dL Carboxyhemoglobin 0.3 L (0.5-1.5) Magnesium (1.7-2.3) mg/dL Arterial Blood Glucose 57 L (65-95) mg/dL 09/23/21 09/23/21 Range/Units 07:46 07:46 WBC 15.3 H (4.5-11.0) K/mm3 RBC 2.80 L (3.65-5.03) M/mm3 Hgb 8.6 L (10.1-14.3) gm/dl Hct 25.7 L (30.3-42.9) % RDW 16.2 H (13.2-15.2) % [place] % (Auto) (0.0-7.3) % [place] # (Auto) 0.9 H (0.0-0.8) K/mm3 Seg Neutrophils % 71.4 H (40.0-70.0) % Seg Neutrophils # 10.9 H (1.8-7.7) K/mm3 ABG pH (7.320-7.450) POC ABG pCO2 (32.0-48.0) mmHg POC ABG pO2 (83-108) mmHg ABG Oxyhemoglobin (94-98) ABG Methemoglobin (0.0-1.5) ABG Sodium (136.0-145.0) mmol/L ABG Glucose (65-95) mg/dL Carboxyhemoglobin (0.5-1.5) Magnesium 5.40 H (1.7-2.3) mg/dL Arterial Blood Glucose (65-95) mg/dL
[2021-09-23] MEDS: ASCORBIC ACID 500 MG TAB PO SCH ×2 (12:09→22:53)
--- NOTE | 2021-09-23 19:52 | Post Anesthesia Evaluation ---
- Post Anesthesia Evaluation Patient Participated: Yes Airway Patent: Yes Stable Respiratory Function: Yes Nausea/Vomiting: No Temp > 96.8F: Yes Pain Manageable: Yes Adequeate Hydration: Yes Anesthesia Complications: No Block Receding Appropriately: Yes Patient on Ventilator: No
[2021-09-24] MEDS: HYDROcodone/ACETAMINOPHEN 5-325 MG TAB PO PRN ×3 (01:15→18:36)
--- NOTE | 2021-09-24 06:46 | Progress Note ---
Subjective - Subjective Principal diagnosis: /postop day 1 S/P primary C/S Interval history: SP C/SECTION POD#2 PE benign VSS and reviewed as below plan for up ad zully,labs and pain meds prn advance diet as toelrated Luther Philip MD Vital Signs - 24 hr 09/23/21 09/23/21 09/23/21 06:46 06:48 06:52 Temperature Pulse Rate 95 H 91 H 98 H Respiratory Rate Blood Pressure 104/70 Blood Pressure [Left] O2 Sat by Pulse 93 94 91 Oximetry O2 Sat by Pulse Oximetry [ Anterior Bilateral Throughout] 09/23/21 09/23/21 09/23/21 06:53 06:58 07:03 Temperature Pulse Rate 95 H 99 H 85 Respiratory Rate Blood Pressure Blood Pressure [Left] O2 Sat by Pulse 99 96 96 Oximetry O2 Sat by Pulse Oximetry [ Anterior Bilateral Throughout] 09/23/21 09/23/21 09/23/21 07:08 07:13 07:18 Temperature Pulse Rate 89 88 87 Respiratory Rate Blood Pressure Blood Pressure [Left] O2 Sat by Pulse 96 96 97 Oximetry O2 Sat by Pulse Oximetry [ Anterior Bilateral Throughout] 09/23/21 09/23/21 09/23/21 07:23 07:28 07:30 Temperature Pulse Rate 85 89 85 Respiratory Rate Blood Pressure Blood Pressure [Left] O2 Sat by Pulse 95 97 94 Oximetry O2 Sat by Pulse Oximetry [ Anterior Bilateral Throughout] 09/23/21 09/23/21 09/23/21 07:33 07:38 07:43 Temperature Pulse Rate 88 86 84 Respiratory Rate Blood Pressure Blood Pressure [Left] O2 Sat by Pulse 96 95 98 Oximetry O2 Sat by Pulse Oximetry [ Anterior Bilateral Throughout] 09/23/21 09/23/21 09/23/21 07:48 07:51 07:53 Temperature Pulse Rate 89 94 H Respiratory Rate Blood Pressure Blood Pressure [Left] O2 Sat by Pulse 97 95 Oximetry O2 Sat by Pulse 96 Oximetry [ Anterior Bilateral Throughout] 09/23/21 09/23/21 09/23/21 07:58 07:59 08:03 Temperature 98.8 F Pulse Rate 91 H 84 Respiratory 18 Rate Blood Pressure 116/70 Blood Pressure [Left] O2 Sat by Pulse 98 96 Oximetry O2 Sat by Pulse Oximetry [ Anterior Bilateral Throughout] 09/23/21 09/23/21 09/23/21 08:08 08:10 08:13 Temperature Pulse Rate 87 86 89 Respiratory Rate Blood Pressure Blood Pressure [Left] O2 Sat by Pulse 96 93 94 Oximetry O2 Sat by Pulse Oximetry [ Anterior Bilateral Throughout] 09/23/21 09/23/21 09/23/21 08:15 08:19 08:23 Temperature Pulse Rate 95 H 91 H 88 Respiratory Rate Blood Pressure Blood Pressure [Left] O2 Sat by Pulse 94 98 95 Oximetry O2 Sat by Pulse Oximetry [ Anterior Bilateral Throughout] 09/23/21 09/23/21 09/23/21 08:28 08:29 08:34 Temperature Pulse Rate 90 90 100 H Respiratory Rate Blood Pressure Blood Pressure [Left] O2 Sat by Pulse 94 94 94 Oximetry O2 Sat by Pulse Oximetry [ Anterior Bilateral Throughout] 09/23/21 09/23/21 09/23/21 08:39 08:41 08:43 Temperature Pulse Rate 90 91 H 92 H Respiratory Rate Blood Pressure Blood Pressure [Left] O2 Sat by Pulse 97 94 95 Oximetry O2 Sat by Pulse Oximetry [ Anterior Bilateral Throughout] 09/23/21 09/23/21 09/23/21 08:47 08:49 08:53 Temperature Pulse Rate 90 94 H 90 Respiratory Rate Blood Pressure Blood Pressure [Left] O2 Sat by Pulse 94 94 95 Oximetry O2 Sat by Pulse Oximetry [ Anterior Bilateral Throughout] 09/23/21 09/23/21 09/23/21 08:58 09:03 09:08 Temperature Pulse Rate 93 H 93 H 94 H Respiratory Rate Blood Pressure 99/59 Blood Pressure [Left] O2 Sat by Pulse 94 94 94 Oximetry O2 Sat by Pulse Oximetry [ Anterior Bilateral Throughout] 09/23/21 09/23/21 09/23/21 09:13 09:15 09:19 Temperature Pulse Rate 91 H 90 97 H Respiratory Rate Blood Pressure Blood Pressure [Left] O2 Sat by Pulse 94 94 94 Oximetry O2 Sat by Pulse Oximetry [ Anterior Bilateral Throughout] 09/23/21 09/23/21 09/23/21 09:23 09:26 09:29 Temperature Pulse Rate 94 H 88 96 H Respiratory Rate Blood Pressure Blood Pressure [Left] O2 Sat by Pulse 98 94 100 Oximetry O2 Sat by Pulse Oximetry [ Anterior Bilateral Throughout] 09/23/21 09/23/21 09/23/21 09:34 09:38 09:40 Temperature Pulse Rate 87 88 88 Respiratory Rate Blood Pressure Blood Pressure [Left] O2 Sat by Pulse 94 94 93 Oximetry O2 Sat by Pulse Oximetry [ Anterior Bilateral Throughout] 09/23/21 09/23/21 09/23/21 09:43 09:48 09:53 Temperature Pulse Rate 86 90 92 H Respiratory Rate Blood Pressure Blood Pressure [Left] O2 Sat by Pulse 92 93 93 Oximetry O2 Sat by Pulse Oximetry [ Anterior Bilateral Throughout] 09/23/21 09/23/21 09/23/21 09:57 09:58 09:59 Temperature Pulse Rate 90 95 H 94 H Respiratory Rate Blood Pressure 115/76 Blood Pressure [Left] O2 Sat by Pulse 97 93 Oximetry O2 Sat by Pulse Oximetry [ Anterior Bilateral Throughout] 09/23/21 09/23/21 09/23/21 10:04 10:05 10:09 Temperature Pulse Rate 89 89 80 Respiratory Rate Blood Pressure Blood Pressure [Left] O2 Sat by Pulse 91 93 96 Oximetry O2 Sat by Pulse Oximetry [ Anterior Bilateral Throughout] 09/23/21 09/23/21 09/23/21 10:12 10:14 10:18 Temperature Pulse Rate 88 89 88 Respiratory Rate Blood Pressure Blood Pressure [Left] O2 Sat by Pulse 94 92 92 Oximetry O2 Sat by Pulse Oximetry [ Anterior Bilateral Throughout] 09/23/21 09/23/21 09/23/21 10:24 10:25 10:29 Temperature Pulse Rate 94 H 84 92 H Respiratory Rate Blood Pressure Blood Pressure [Left] O2 Sat by Pulse 91 93 94 Oximetry O2 Sat by Pulse Oximetry [ Anterior Bilateral Throughout] 09/23/21 09/23/21 09/23/21 10:34 10:35 10:38 Temperature Pulse Rate 94 H 89 89 Respiratory Rate Blood Pressure Blood Pressure [Left] O2 Sat by Pulse 97 93 92 Oximetry O2 Sat by Pulse Oximetry [ Anterior Bilateral Throughout] 09/23/21 09/23/21 09/23/21 10:43 10:48 10:51 Temperature Pulse Rate 89 97 H 91 H Respiratory Rate Blood Pressure Blood Pressure [Left] O2 Sat by Pulse 93 95 93 Oximetry O2 Sat by Pulse Oximetry [ Anterior Bilateral Throughout] 09/23/21 09/23/21 09/23/21 10:54 10:57 10:58 Temperature 99.2 F Pulse Rate 90 90 88 Respiratory 20 Rate Blood Pressure 138/87 Blood Pressure [Left] O2 Sat by Pulse 94 94 Oximetry O2 Sat by Pulse Oximetry [ Anterior Bilateral Throughout] 09/23/21 09/23/21 09/23/21 10:59 11:03 11:05 Temperature Pulse Rate 88 87 86 Respiratory Rate Blood Pressure Blood Pressure [Left] O2 Sat by Pulse 97 94 94 Oximetry O2 Sat by Pulse Oximetry [ Anterior Bilateral Throughout] 09/23/21 09/23/21 09/23/21 11:09 11:14 11:18 Temperature Pulse Rate 89 86 86 Respiratory Rate Blood Pressure Blood Pressure [Left] O2 Sat by Pulse 96 96 94 Oximetry O2 Sat by Pulse Oximetry [ Anterior Bilateral Throughout] 09/23/21 09/23/21 09/23/21 11:20 11:23 11:28 Temperature Pulse Rate 87 87 94 H Respiratory Rate Blood Pressure Blood Pressure [Left] O2 Sat by Pulse 94 96 97 Oximetry O2 Sat by Pulse Oximetry [ Anterior Bilateral Throughout] 09/23/21 09/23/21 09/23/21 11:34 11:39 11:43 Temperature Pulse Rate 92 H 99 H 92 H Respiratory Rate Blood Pressure Blood Pressure [Left] O2 Sat by Pulse 97 99 97 Oximetry O2 Sat by Pulse Oximetry [ Anterior Bilateral Throughout] 09/23/21 09/23/21 09/23/21 11:48 11:54 11:58 Temperature Pulse Rate 91 H 89 92 H Respiratory Rate Blood Pressure 108/64 Blood Pressure [Left] O2 Sat by Pulse 98 98 97 Oximetry O2 Sat by Pulse Oximetry [ Anterior Bilateral Throughout] 09/23/21 09/23/21 09/23/21 12:04 12:09 12:14 Temperature Pulse Rate 88 95 H 91 H Respiratory Rate Blood Pressure Blood Pressure [Left] O2 Sat by Pulse 98 97 98 Oximetry O2 Sat by Pulse Oximetry [ Anterior Bilateral Throughout] 09/23/21 09/23/21 09/23/21 12:18 12:24 12:29 Temperature Pulse Rate 89 89 91 H Respiratory Rate Blood Pressure Blood Pressure [Left] O2 Sat by Pulse 97 96 96 Oximetry O2 Sat by Pulse Oximetry [ Anterior Bilateral Throughout] 09/23/21 09/23/21 09/23/21 12:33 12:39 12:44 Temperature Pulse Rate 88 95 H 99 H Respiratory Rate Blood Pressure Blood Pressure [Left] O2 Sat by Pulse 98 95 98 Oximetry O2 Sat by Pulse Oximetry [ Anterior Bilateral Throughout] 09/23/21 09/23/21 09/23/21 12:49 12:54 12:57 Temperature Pulse Rate 99 H 93 H 91 H Respiratory Rate Blood Pressure 120/71 Blood Pressure [Left] O2 Sat by Pulse 99 98 Oximetry O2 Sat by Pulse Oximetry [ Anterior Bilateral Throughout] 09/23/21 09/23/21 09/23/21 12:59 13:04 13:09 Temperature Pulse Rate 97 H 89 93 H Respiratory Rate Blood Pressure Blood Pressure [Left] O2 Sat by Pulse 100 99 98 Oximetry O2 Sat by Pulse Oximetry [ Anterior Bilateral Throughout] 09/23/21 09/23/21 09/23/21 13:14 13:19 13:24 Temperature Pulse Rate 94 H 93 H 93 H Respiratory Rate Blood Pressure Blood Pressure [Left] O2 Sat by Pulse 99 98 98 Oximetry O2 Sat by Pulse Oximetry [ Anterior Bilateral Throughout] 09/23/21 09/23/21 09/23/21 13:27 13:29 13:34 Temperature 98.4 F Pulse Rate 91 H 96 H Respiratory 17 Rate Blood Pressure Blood Pressure [Left] O2 Sat by Pulse 98 98 Oximetry O2 Sat by Pulse Oximetry [ Anterior Bilateral Throughout] 09/23/21 09/23/21 09/23/21 13:39 13:44 13:49 Temperature Pulse Rate 90 92 H 94 H Respiratory Rate Blood Pressure Blood Pressure [Left] O2 Sat by Pulse 99 100 99 Oximetry O2 Sat by Pulse Oximetry [ Anterior Bilateral Throughout] 09/23/21 09/23/21 09/23/21 13:54 13:57 13:59 Temperature Pulse Rate 98 H 94 H 94 H Respiratory Rate Blood Pressure 128/81 Blood Pressure [Left] O2 Sat by Pulse 99 99 Oximetry O2 Sat by Pulse Oximetry [ Anterior Bilateral Throughout] 09/23/21 09/23/21 09/23/21 14:04 14:09 14:14 Temperature Pulse Rate 94 H 95 H 98 H Respiratory Rate Blood Pressure Blood Pressure [Left] O2 Sat by Pulse 100 100 98 Oximetry O2 Sat by Pulse Oximetry [ Anterior Bilateral Throughout] 09/23/21 09/23/21 09/23/21 14:19 14:24 14:29 Temperature Pulse Rate 92 H 94 H 94 H Respiratory Rate Blood Pressure Blood Pressure [Left] O2 Sat by Pulse 99 100 97 Oximetry O2 Sat by Pulse Oximetry [ Anterior Bilateral Throughout] 09/23/21 09/23/21 09/23/21 14:34 14:39 14:44 Temperature Pulse Rate 96 H 96 H 94 H Respiratory Rate Blood Pressure Blood Pressure [Left] O2 Sat by Pulse 97 98 99 Oximetry O2 Sat by Pulse Oximetry [ Anterior Bilateral Throughout] 09/23/21 09/23/21 09/23/21 14:49 14:54 14:57 Temperature Pulse Rate 96 H 96 H 96 H Respiratory Rate Blood Pressure 130/81 Blood Pressure [Left] O2 Sat by Pulse 98 99 Oximetry O2 Sat by Pulse Oximetry [ Anterior Bilateral Throughout] 09/23/21 09/23/21 09/23/21 14:59 15:04 15:09 Temperature Pulse Rate 98 H 98 H 97 H Respiratory Rate Blood Pressure Blood Pressure [Left] O2 Sat by Pulse 100 99 99 Oximetry O2 Sat by Pulse Oximetry [ Anterior Bilateral Throughout] 09/23/21 09/23/21 09/23/21 15:14 15:19 15:24 Temperature Pulse Rate 96 H 96 H 96 H Respiratory Rate Blood Pressure Blood Pressure [Left] O2 Sat by Pulse 97 97 97 Oximetry O2 Sat by Pulse Oximetry [ Anterior Bilateral Throughout] 09/23/21 09/23/21 09/23/21 15:29 15:31 15:34 Temperature Pulse Rate 101 H 95 H 94 H Respiratory Rate Blood Pressure Blood Pressure [Left] O2 Sat by Pulse 96 93 98 Oximetry O2 Sat by Pulse Oximetry [ Anterior Bilateral Throughout] 09/23/21 09/23/21 09/23/21 15:39 15:44 15:49 Temperature Pulse Rate 97 H 93 H 95 H Respiratory Rate Blood Pressure Blood Pressure [Left] O2 Sat by Pulse 98 98 98 Oximetry O2 Sat by Pulse Oximetry [ Anterior Bilateral Throughout] 09/23/21 09/23/21 09/23/21 15:54 15:57 15:59 Temperature Pulse Rate 95 H 93 H 94 H Respiratory Rate Blood Pressure 126/76 Blood Pressure [Left] O2 Sat by Pulse 97 98 Oximetry O2 Sat by Pulse Oximetry [ Anterior Bilateral Throughout] 09/23/21 09/23/21 09/23/21 16:04 16:05 16:09 Temperature 98.6 F Pulse Rate 95 H 92 H Respiratory 19 Rate Blood Pressure Blood Pressure [Left] O2 Sat by Pulse 99 98 Oximetry O2 Sat by Pulse Oximetry [ Anterior Bilateral Throughout] 09/23/21 09/23/21 09/23/21 16:14 16:19 16:24 Temperature Pulse Rate 96 H 95 H 93 H Respiratory Rate Blood Pressure Blood Pressure [Left] O2 Sat by Pulse 97 99 98 Oximetry O2 Sat by Pulse Oximetry [ Anterior Bilateral Throughout] 09/23/21 09/23/21 09/23/21 16:29 16:34 16:39 Temperature Pulse Rate 97 H 96 H 97 H Respiratory Rate Blood Pressure Blood Pressure [Left] O2 Sat by Pulse 100 98 98 Oximetry O2 Sat by Pulse Oximetry [ Anterior Bilateral Throughout] 09/23/21 09/23/21 09/23/21 16:44 16:49 16:54 Temperature Pulse Rate 95 H 98 H 97 H Respiratory Rate Blood Pressure Blood Pressure [Left] O2 Sat by Pulse 99 98 98 Oximetry O2 Sat by Pulse Oximetry [ Anterior Bilateral Throughout] 09/23/21 09/23/21 09/23/21 16:57 16:59 17:04 Temperature Pulse Rate 98 H 97 H 99 H Respiratory Rate Blood Pressure 123/75 Blood Pressure [Left] O2 Sat by Pulse 99 98 Oximetry O2 Sat by Pulse Oximetry [ Anterior Bilateral Throughout] 09/23/21 09/23/21 09/23/21 17:09 17:14 17:19 Temperature Pulse Rate 97 H 102 H 99 H Respiratory Rate Blood Pressure Blood Pressure [Left] O2 Sat by Pulse 99 98 98 Oximetry O2 Sat by Pulse Oximetry [ Anterior Bilateral Throughout] 09/23/21 09/23/21 09/23/21 17:24 17:29 17:34 Temperature Pulse Rate 98 H 100 H 100 H Respiratory Rate Blood Pressure Blood Pressure [Left] O2 Sat by Pulse 100 99 99 Oximetry O2 Sat by Pulse Oximetry [ Anterior Bilateral Throughout] 09/23/21 09/23/21 09/23/21 17:39 17:44 17:49 Temperature Pulse Rate 100 H 98 H 98 H Respiratory Rate Blood Pressure Blood Pressure [Left] O2 Sat by Pulse 99 98 99 Oximetry O2 Sat by Pulse Oximetry [ Anterior Bilateral Throughout] 09/23/21 09/23/21 09/23/21 17:54 17:57 17:59 Temperature Pulse Rate 101 H 101 H 101 H Respiratory Rate Blood Pressure 133/80 Blood Pressure [Left] O2 Sat by Pulse 97 98 Oximetry O2 Sat by Pulse Oximetry [ Anterior Bilateral Throughout] 09/23/21 09/23/21 09/23/21 18:04 18:09 18:14 Temperature Pulse Rate 100 H 102 H 103 H Respiratory Rate Blood Pressure Blood Pressure [Left] O2 Sat by Pulse 99 99 100 Oximetry O2 Sat by Pulse Oximetry [ Anterior Bilateral Throughout] 09/23/21 09/23/21 09/23/21 18:19 18:24 18:29 Temperature Pulse Rate 110 H 99 H 100 H Respiratory Rate Blood Pressure Blood Pressure [Left] O2 Sat by Pulse 99 100 99 Oximetry O2 Sat by Pulse Oximetry [ Anterior Bilateral Throughout] 09/23/21 09/23/21 09/23/21 18:34 18:39 18:44 Temperature Pulse Rate 97 H 98 H 97 H Respiratory Rate Blood Pressure Blood Pressure [Left] O2 Sat by Pulse 99 99 99 Oximetry O2 Sat by Pulse Oximetry [ Anterior Bilateral Throughout] 09/23/21 09/23/21 09/23/21 18:49 18:54 18:57 Temperature Pulse Rate 99 H 99 H 99 H Respiratory Rate Blood Pressure 130/73 Blood Pressure [Left] O2 Sat by Pulse 100 98 Oximetry O2 Sat by Pulse Oximetry [ Anterior Bilateral Throughout] 09/23/21 09/23/21 09/23/21 18:59 19:04 19:09 Temperature Pulse Rate 103 H 100 H 99 H Respiratory Rate Blood Pressure Blood Pressure [Left] O2 Sat by Pulse 99 100 99 Oximetry O2 Sat by Pulse Oximetry [ Anterior Bilateral Throughout] 09/23/21 09/23/21 09/23/21 19:14 19:19 19:24 Temperature Pulse Rate 99 H 102 H 98 H Respiratory Rate Blood Pressure Blood Pressure [Left] O2 Sat by Pulse 98 99 98 Oximetry O2 Sat by Pulse Oximetry [ Anterior Bilateral Throughout] 09/23/21 09/23/21 09/23/21 19:29 19:34 19:39 Temperature Pulse Rate 97 H 100 H 97 H Respiratory Rate Blood Pressure Blood Pressure [Left] O2 Sat by Pulse 97 98 97 Oximetry O2 Sat by Pulse 100 Oximetry [ Anterior Bilateral Throughout] 09/23/21 09/23/21 09/23/21 19:40 19:44 19:49 Temperature 98.5 F Pulse Rate 100 H 98 H Respiratory 18 Rate Blood Pressure Blood Pressure [Left] O2 Sat by Pulse 100 99 99 Oximetry O2 Sat by Pulse Oximetry [ Anterior Bilateral Throughout] 09/23/21 09/23/21 09/23/21 19:54 19:57 19:59 Temperature Pulse Rate 97 H 96 H 97 H Respiratory Rate Blood Pressure 125/76 Blood Pressure [Left] O2 Sat by Pulse 98 98 Oximetry O2 Sat by Pulse Oximetry [ Anterior Bilateral Throughout] 09/23/21 09/23/21 09/23/21 20:04 20:09 20:14 Temperature Pulse Rate 97 H 98 H 97 H Respiratory Rate Blood Pressure Blood Pressure [Left] O2 Sat by Pulse 97 98 98 Oximetry O2 Sat by Pulse Oximetry [ Anterior Bilateral Throughout] 09/23/21 09/23/21 09/23/21 20:19 20:24 20:29 Temperature Pulse Rate 97 H 97 H 97 H Respiratory Rate Blood Pressure Blood Pressure [Left] O2 Sat by Pulse 98 99 98 Oximetry O2 Sat by Pulse Oximetry [ Anterior Bilateral Throughout] 09/23/21 09/23/21 09/23/21 20:34 20:39 20:44 Temperature Pulse Rate 96 H 97 H 100 H Respiratory Rate Blood Pressure Blood Pressure [Left] O2 Sat by Pulse 98 98 98 Oximetry O2 Sat by Pulse Oximetry [ Anterior Bilateral Throughout] 09/23/21 09/23/21 09/23/21 20:49 20:54 20:57 Temperature Pulse Rate 98 H 97 H 95 H Respiratory Rate Blood Pressure 139/83 Blood Pressure [Left] O2 Sat by Pulse 99 98 Oximetry O2 Sat by Pulse Oximetry [ Anterior Bilateral Throughout] 09/23/21 09/23/21 09/23/21 20:59 21:04 21:05 Temperature Pulse Rate 98 H 105 H 109 H Respiratory Rate Blood Pressure Blood Pressure [Left] O2 Sat by Pulse 99 97 93 Oximetry O2 Sat by Pulse Oximetry [ Anterior Bilateral Throughout] 09/23/21 09/23/21 09/23/21 21:09 21:14 21:19 Temperature Pulse Rate 103 H 107 H 98 H Respiratory Rate Blood Pressure Blood Pressure [Left] O2 Sat by Pulse 97 99 98 Oximetry O2 Sat by Pulse Oximetry [ Anterior Bilateral Throughout] 09/23/21 09/23/21 09/23/21 21:24 21:29 21:34 Temperature Pulse Rate 98 H 98 H 101 H Respiratory Rate Blood Pressure Blood Pressure [Left] O2 Sat by Pulse 99 98 98 Oximetry O2 Sat by Pulse Oximetry [ Anterior Bilateral Throughout] 09/23/21 09/23/21 09/23/21 21:39 21:44 21:49 Temperature Pulse Rate 99 H 103 H 99 H Respiratory Rate Blood Pressure Blood Pressure [Left] O2 Sat by Pulse 98 98 98 Oximetry O2 Sat by Pulse Oximetry [ Anterior Bilateral Throughout] 09/23/21 09/23/21 09/23/21 21:54 21:57 21:59 Temperature Pulse Rate 101 H 94 H 100 H Respiratory Rate Blood Pressure 126/79 Blood Pressure [Left] O2 Sat by Pulse 100 98 Oximetry O2 Sat by Pulse Oximetry [ Anterior Bilateral Throughout] 09/23/21 09/23/21 09/23/21 22:04 22:09 22:14 Temperature Pulse Rate 98 H 101 H 98 H Respiratory Rate Blood Pressure Blood Pressure [Left] O2 Sat by Pulse 97 97 98 Oximetry O2 Sat by Pulse Oximetry [ Anterior Bilateral Throughout] 09/23/21 09/23/21 09/23/21 22:19 22:24 22:29 Temperature Pulse Rate 98 H 97 H 94 H Respiratory Rate Blood Pressure Blood Pressure [Left] O2 Sat by Pulse 97 99 98 Oximetry O2 Sat by Pulse Oximetry [ Anterior Bilateral Throughout] 09/23/21 09/23/21 09/23/21 22:34 22:39 22:44 Temperature Pulse Rate 95 H 94 H 92 H Respiratory Rate Blood Pressure Blood Pressure [Left] O2 Sat by Pulse 98 97 97 Oximetry O2 Sat by Pulse Oximetry [ Anterior Bilateral Throughout] 09/23/21 09/23/21 09/23/21 22:49 22:54 22:58 Temperature Pulse Rate 92 H 99 H 92 H Respiratory Rate Blood Pressure 119/71 Blood Pressure [Left] O2 Sat by Pulse 99 98 Oximetry O2 Sat by Pulse Oximetry [ Anterior Bilateral Throughout] 09/23/21 09/23/21 09/23/21 22:59 23:04 23:09 Temperature Pulse Rate 96 H 90 90 Respiratory Rate Blood Pressure Blood Pressure [Left] O2 Sat by Pulse 98 97 97 Oximetry O2 Sat by Pulse Oximetry [ Anterior Bilateral Throughout] 09/23/21 09/23/21 09/23/21 23:14 23:19 23:24 Temperature Pulse Rate 91 H 91 H 94 H Respiratory Rate Blood Pressure Blood Pressure [Left] O2 Sat by Pulse 97 98 97 Oximetry O2 Sat by Pulse Oximetry [ Anterior Bilateral Throughout] 09/23/21 09/23/21 09/23/21 23:29 23:34 23:39 Temperature Pulse Rate 94 H 88 90 Respiratory Rate Blood Pressure Blood Pressure [Left] O2 Sat by Pulse 96 95 97 Oximetry O2 Sat by Pulse Oximetry [ Anterior Bilateral Throughout] 09/23/21 09/23/21 09/23/21 23:44 23:49 23:51 Temperature Pulse Rate 98 H 92 H 89 Respiratory Rate Blood Pressure Blood Pressure [Left] O2 Sat by Pulse 81 L 98 88 Oximetry O2 Sat by Pulse Oximetry [ Anterior Bilateral Throughout] 09/23/21 09/23/21 09/23/21 23:54 23:57 23:59 Temperature Pulse Rate 97 H 90 89 Respiratory Rate Blood Pressure 127/69 Blood Pressure [Left] O2 Sat by Pulse 96 98 Oximetry O2 Sat by Pulse Oximetry [ Anterior Bilateral Throughout] 09/24/21 09/24/21 09/24/21 00:04 00:09 00:14 Temperature Pulse Rate 90 86 88 Respiratory Rate Blood Pressure Blood Pressure [Left] O2 Sat by Pulse 98 95 96 Oximetry O2 Sat by Pulse Oximetry [ Anterior Bilateral Throughout] 09/24/21 09/24/21 09/24/21 00:19 00:24 00:29 Temperature Pulse Rate 94 H 90 89 Respiratory Rate Blood Pressure Blood Pressure [Left] O2 Sat by Pulse 97 99 96 Oximetry O2 Sat by Pulse Oximetry [ Anterior Bilateral Throughout] 09/24/21 09/24/21 09/24/21 00:34 00:39 00:44 Temperature Pulse Rate 92 H 90 91 H Respiratory Rate Blood Pressure Blood Pressure [Left] O2 Sat by Pulse 97 96 97 Oximetry O2 Sat by Pulse Oximetry [ Anterior Bilateral Throughout] 09/24/21 09/24/21 09/24/21 00:49 00:54 00:57 Temperature Pulse Rate 91 H 88 93 H Respiratory Rate Blood Pressure 120/69 Blood Pressure [Left] O2 Sat by Pulse 97 97 Oximetry O2 Sat by Pulse Oximetry [ Anterior Bilateral Throughout] 09/24/21 09/24/21 09/24/21 00:59 01:04 01:09 Temperature Pulse Rate 93 H 103 H 106 H Respiratory Rate Blood Pressure Blood Pressure [Left] O2 Sat by Pulse 97 97 97 Oximetry O2 Sat by Pulse Oximetry [ Anterior Bilateral Throughout] 09/24/21 09/24/21 09/24/21 01:14 01:17 01:19 Temperature 98.9 F Pulse Rate 98 H 96 H 97 H Respiratory 19 Rate Blood Pressure 132/76 Blood Pressure [Left] O2 Sat by Pulse 97 98 Oximetry O2 Sat by Pulse Oximetry [ Anterior Bilateral Throughout] 09/24/21 09/24/21 09/24/21 01:24 01:29 01:34 Temperature Pulse Rate 93 H 95 H 96 H Respiratory Rate Blood Pressure Blood Pressure [Left] O2 Sat by Pulse 98 96 97 Oximetry O2 Sat by Pulse Oximetry [ Anterior Bilateral Throughout] 09/24/21 09/24/21 09/24/21 01:39 01:44 01:49 Temperature Pulse Rate 104 H 98 H 99 H Respiratory Rate Blood Pressure Blood Pressure [Left] O2 Sat by Pulse 100 98 99 Oximetry O2 Sat by Pulse Oximetry [ Anterior Bilateral Throughout] 09/24/21 09/24/21 09/24/21 01:54 01:59 02:04 Temperature Pulse Rate 99 H 95 H 97 H Respiratory Rate Blood Pressure Blood Pressure [Left] O2 Sat by Pulse 98 97 98 Oximetry O2 Sat by Pulse Oximetry [ Anterior Bilateral Throughout] 09/24/21 09/24/21 09/24/21 02:09 02:14 02:19 Temperature Pulse Rate 96 H 93 H 99 H Respiratory Rate Blood Pressure Blood Pressure [Left] O2 Sat by Pulse 98 97 98 Oximetry O2 Sat by Pulse Oximetry [ Anterior Bilateral Throughout] 09/24/21 09/24/21 09/24/21 02:26 02:27 02:32 Temperature Pulse Rate 106 H 96 H 95 H Respiratory Rate Blood Pressure 115/71 Blood Pressure [Left] O2 Sat by Pulse 0 L 0 L 98 Oximetry O2 Sat by Pulse Oximetry [ Anterior Bilateral Throughout] 09/24/21 09/24/21 09/24/21 02:37 02:42 02:47 Temperature Pulse Rate 94 H 95 H 93 H Respiratory Rate Blood Pressure Blood Pressure [Left] O2 Sat by Pulse 98 98 97 Oximetry O2 Sat by Pulse Oximetry [ Anterior Bilateral Throughout] 09/24/21 09/24/21 09/24/21 02:52 02:57 03:02 Temperature Pulse Rate 93 H 91 H 92 H Respiratory Rate Blood Pressure Blood Pressure [Left] O2 Sat by Pulse 97 98 98 Oximetry O2 Sat by Pulse Oximetry [ Anterior Bilateral Throughout] 09/24/21 09/24/21 09/24/21 03:07 03:12 03:15 Temperature Pulse Rate 94 H 94 H 94 H Respiratory Rate Blood Pressure 138/70 Blood Pressure [Left] O2 Sat by Pulse 97 98 Oximetry O2 Sat by Pulse Oximetry [ Anterior Bilateral Throughout] 09/24/21 09/24/21 04:14 04:15 Temperature 98.5 F Pulse Rate 90 Respiratory 20 Rate Blood Pressure Blood Pressure 125/77 [Left] O2 Sat by Pulse 100 Oximetry O2 Sat by Pulse 100 Oximetry [ Anterior Bilateral Throughout] Vital Signs - 12hr 09/19/21 09/20/21 09/20/21 23:37 02:07 02:08 Temperature 98.6 F Pulse Rate 93 H 88 88 Respiratory 18 Rate Blood Pressure 126/70 131/71 131/71 Blood Pressure 126/70 [Left] Blood Pressure [Right] O2 Sat by Pulse Oximetry O2 Sat by Pulse Oximetry [ Anterior Bilateral Throughout] 09/20/21 09/20/21 09/20/21 04:35 04:36 09:03 Temperature 98.5 F 99 F Pulse Rate 88 89 Respiratory 17 20 Rate Blood Pressure 133/80 Blood Pressure [Left] Blood Pressure 133/80 116/75 [Right] O2 Sat by Pulse 99 Oximetry O2 Sat by Pulse Oximetry [ Anterior Bilateral Throughout] 09/20/21 09/20/21 09/20/21 09:04 09:05 09:09 Temperature Pulse Rate 89 96 H 97 H Respiratory Rate Blood Pressure 117/70 116/75 Blood Pressure [Left] Blood Pressure [Right] O2 Sat by Pulse 99 Oximetry O2 Sat by Pulse Oximetry [ Anterior Bilateral Throughout] 09/20/21 09/20/21 09/20/21 09:14 09:15 09:19 Temperature Pulse Rate 101 H 96 H Respiratory Rate Blood Pressure Blood Pressure [Left] Blood Pressure [Right] O2 Sat by Pulse 98 98 Oximetry O2 Sat by Pulse 98 Oximetry [ Anterior Bilateral Throughout] 09/20/21 09/20/21 09/20/21 09:24 09:29 09:34 Temperature Pulse Rate 97 H 96 H 89 Respiratory Rate Blood Pressure Blood Pressure [Left] Blood Pressure [Right] O2 Sat by Pulse 98 98 99 Oximetry O2 Sat by Pulse Oximetry [ Anterior Bilateral Throughout] 05/09/20/21 09/20/21 09:39 09:44 09:49 Temperature Pulse Rate 92 H 89 97 H Respiratory Rate Blood Pressure Blood Pressure [Left] Blood Pressure [Right] O2 Sat by Pulse 98 98 98 Oximetry O2 Sat by Pulse Oximetry [ Anterior Bilateral Throughout] 09/20/21 09/20/21 09/20/21 09:51 09:53 09:54 Temperature Pulse Rate 89 88 88 Respiratory Rate Blood Pressure 116/75 116/75 Blood Pressure [Left] Blood Pressure [Right] O2 Sat by Pulse 98 Oximetry O2 Sat by Pulse Oximetry [ Anterior Bilateral Throughout] 09/20/21 09:59 Temperature Pulse Rate 95 H Respiratory Rate Blood Pressure Blood Pressure [Left] Blood Pressure [Right] O2 Sat by Pulse 98 Oximetry O2 Sat by Pulse Oximetry [ Anterior Bilateral Throughout] Vital Signs - 24 hr 09/18/21 09/18/21 09/18/21 09:56 09:57 18:06 Pulse Rate 88 Blood Pressure 128/75 128/75 138/82 O2 Sat by Pulse Oximetry [ Anterior Bilateral Throughout] 09/18/21 09/18/21 09/18/21 18:07 21:11 23:02 Pulse Rate 97 H 90 Blood Pressure 138/82 123/77 O2 Sat by Pulse 99 Oximetry [ Anterior Bilateral Throughout] 09/19/21 09/19/21 09/19/21 02:41 02:42 07:36 Pulse Rate 86 86 86 Blood Pressure 134/80 134/80 147/87 O2 Sat by Pulse Oximetry [ Anterior Bilateral Throughout] 09/19/21 07:40 Pulse Rate Blood Pressure O2 Sat by Pulse 98 Oximetry [ Anterior Bilateral Throughout] Vital Signs - 24 hr 09/13/21 09/13/21 09/13/21 10:55 11:50 12:47 Temperature 97.9 F Pulse Rate 88 90 Respiratory 16 Rate Blood Pressure 120/77 115/66 Blood Pressure [Left] O2 Sat by Pulse Oximetry O2 Sat by Pulse Oximetry [ Anterior Bilateral Throughout] 09/13/21 09/13/21 09/13/21 15:45 16:41 18:16 Temperature 98.3 F Pulse Rate 89 94 H Respiratory 16 Rate Blood Pressure 129/73 122/77 Blood Pressure [Left] O2 Sat by Pulse Oximetry O2 Sat by Pulse Oximetry [ Anterior Bilateral Throughout] 09/13/21 09/13/21 09/13/21 18:54 20:37 20:38 Temperature 98.3 F 98.6 F Pulse Rate 90 88 Respiratory 16 18 Rate Blood Pressure 141/88 Blood Pressure 134/84 [Left] O2 Sat by Pulse 98 Oximetry O2 Sat by Pulse Oximetry [ Anterior Bilateral Throughout] 09/13/21 09/13/21 09/13/21 20:39 20:41 20:44 Temperature Pulse Rate 91 H 91 H Respiratory Rate Blood Pressure 134/84 Blood Pressure [Left] O2 Sat by Pulse 98 98 Oximetry O2 Sat by Pulse 98 Oximetry [ Anterior Bilateral Throughout] 09/14/21 09/14/21 09/14/21 01:45 01:46 01:51 Temperature Pulse Rate 87 87 87 Respiratory Rate Blood Pressure 123/71 123/71 Blood Pressure 123/71 [Left] O2 Sat by Pulse Oximetry O2 Sat by Pulse Oximetry [ Anterior Bilateral Throughout] 09/14/21 09/14/21 09/14/21 06:37 06:41 08:19 Temperature Pulse Rate 82 82 84 Respiratory Rate Blood Pressure 126/72 129/71 Blood Pressure 126/72 [Left] O2 Sat by Pulse Oximetry O2 Sat by Pulse Oximetry [ Anterior Bilateral Throughout] 09/14/21 08:20 Temperature 98.5 F Pulse Rate Respiratory 18 Rate Blood Pressure Blood Pressure [Left] O2 Sat by Pulse Oximetry O2 Sat by Pulse Oximetry [ Anterior Bilateral Throughout] Patient reports: appetite normal, voiding normally, pain well controlled, ambulating normally [place]: doing well Objective - Vital Signs Latest vital signs: Vital Signs Temp Pulse Resp BP BP Pulse Ox Pulse Ox 09/24/21 04:15 100 09/24/21 04:14 98.5 F 90 20 125/77 100 09/24/21 03:15 94 H 138/70 09/24/21 03:12 94 H 98 09/24/21 03:07 94 H 97 09/24/21 03:02 92 H 98 09/24/21 02:57 91 H 98 09/24/21 02:52 93 H 97 09/24/21 02:47 93 H 97 09/24/21 02:42 95 H 98 09/24/21 02:37 94 H 98 09/24/21 02:32 95 H 98 09/24/21 02:27 96 H 115/71 0 L 09/24/21 02:26 106 H 0 L 09/24/21 02:19 99 H 98 09/24/21 02:14 93 H 97 09/24/21 02:09 96 H 98 09/24/21 02:04 97 H 98 09/24/21 01:59 95 H 97 09/24/21 01:54 99 H 98 09/24/21 01:49 99 H 99 09/24/21 01:44 98 H 98 09/24/21 01:39 104 H 100 09/24/21 01:34 96 H 97 09/24/21 01:29 95 H 96 09/24/21 01:24 93 H 98 09/24/21 01:19 97 H 98 09/24/21 01:17 98.9 F 96 H 19 132/76 09/24/21 01:14 98 H 97 09/24/21 01:09 106 H 97 09/24/21 01:04 103 H 97 09/24/21 00:59 93 H 97 09/24/21 00:57 93 H 120/69 09/24/21 00:54 88 97 09/24/21 00:49 91 H 97 09/24/21 00:44 91 H 97 09/24/21 00:39 90 96 09/24/21 00:34 92 H 97 09/24/21 00:29 89 96 09/24/21 00:24 90 99 09/24/21 00:19 94 H 97 09/24/21 00:14 88 96 09/24/21 00:09 86 95 09/24/21 00:04 90 98 09/23/21 23:59 89 98 09/23/21 23:57 90 127/69 09/23/21 23:54 97 H 96 09/23/21 23:51 89 88 05 23:49 92 H 98 09/23/21 23:44 98 H 81 L 09/23/21 23:39 90 97 09/23/21 23:34 88 95 09/23/21 23:29 94 H 96 09/23/21 23:24 94 H 97 09/23/21 23:19 91 H 98 09/23/21 23:14 91 H 97 09/23/21 23:09 90 97 09/23/21 23:04 90 97 09/23/21 22:59 96 H 98 05/20/22 22:58 92 H 119/71 05/20/22 22:54 99 H 98 05/20/22 22:49 92 H 99 05/20/22 22:44 92 H 97 05/20/22 22:39 94 H 97 05/20/22 22:34 95 H 98 05/20/22 22:29 94 H 98 05/20/22 22:24 97 H 99 05/20/22 22:19 98 H 97 05/20/22 22:14 98 H 98 05/20/22 22:09 101 H 97 05/20/22 22:04 98 H 97 05/20/22 21:59 100 H 98 05/20/22 21:57 94 H 126/79 05/20/22 21:54 101 H 100 05/20/22 21:49 99 H 98 05/20/22 21:44 103 H 98 05/20/22 21:39 99 H 98 05/20/22 21:34 101 H 98 05/20/22 21:29 98 H 98 05/20/22 21:24 98 H 99 05/20/22 21:19 98 H 98 05/20/22 21:14 107 H 99 05/20/22 21:09 103 H 97 05/20/22 21:05 109 H 93 05/20/22 21:04 105 H 97 05/20/22 20:59 98 H 99 05/20/22 20:57 95 H 139/83 05/20/22 20:54 97 H 98 05/20/22 20:49 98 H 99 05/20/22 20:44 100 H 98 05/20/22 20:39 97 H 98 05/20/22 20:34 96 H 98 05/20/22 20:29 97 H 98 05/20/22 20:24 97 H 99 05/20/22 20:19 97 H 98 05/20/22 20:14 97 H 98 05/20/22 20:09 98 H 98 05/20/22 20:04 97 H 97 05/20/22 19:59 97 H 98 05/20/22 19:57 96 H 125/76 05/20/22 19:54 97 H 98 05/20/22 19:49 98 H 99 05/20/22 19:44 100 H 99 05/20/22 19:40 98.5 F 18 100 05/20/22 19:39 97 H 97 05/20/22 19:34 100 H 98 100 05/20/22 19:29 97 H 97 05/20/22 19:24 98 H 98 05/20/22 19:19 102 H 99 05/20/22 19:14 99 H 98 05/20/22 19:09 99 H 99 05/20/22 19:04 100 H 100 05/20/22 18:59 103 H 99 05/20/22 18:57 99 H 130/73 05/20/22 18:54 99 H 98 05/20/22 18:49 99 H 100 05/20/22 18:44 97 H 99 05/20/22 18:39 98 H 99 05/20/22 18:34 97 H 99 05/20/22 18:29 100 H 99 05/20/22 18:24 99 H 100 05/20/22 18:19 110 H 99 05/20/22 18:14 103 H 100 05/20/22 18:09 102 H 99 05/20/22 18:04 100 H 99 05/20/22 17:59 101 H 98 05/20/22 17:57 101 H 133/80 05/20/22 17:54 101 H 97 05/20/22 17:49 98 H 99 05/20/22 17:44 98 H 98 05/20/22 17:39 100 H 99 05/20/22 17:34 100 H 99 05/20/22 17:29 100 H 99 05/20/22 17:24 98 H 100 05/20/22 17:19 99 H 98 05/20/22 17:14 102 H 98 05/20/22 17:09 97 H 99 05/20/22 17:04 99 H 98 05/20/22 16:59 97 H 99 05/20/22 16:57 98 H 123/75 05/20/22 16:54 97 H 98 05/20/22 16:49 98 H 98 05/20/22 16:44 95 H 99 05/20/22 16:39 97 H 98 05/20/22 16:34 96 H 98 05/20/22 16:29 97 H 100 05/20/22 16:24 93 H 98 05/20/22 16:19 95 H 99 05/20/22 16:14 96 H 97 05/20/22 16:09 92 H 98 05/20/22 16:05 98.6 F 19 05/20/ 16:04 95 H 99 05/20/22 15:59 94 H 98 05/20/22 15:57 93 H 126/76 05/20/22 15:54 95 H 97 05/20/22 15:49 95 H 98 05/20/22 15:44 93 H 98 05/20/22 15:39 97 H 98 05/20/22 15:34 94 H 98 05/20/22 15:31 95 H 93 05/20/22 15:29 101 H 96 05/20/22 15:24 96 H 97 05/20/ 15:19 96 H 97 05/20/ 15:14 96 H 97 0520 15:09 97 H 99 05/20/ 15:04 98 H 99 05/20/ 14:59 98 H 100 05/20/ 14:57 96 H 130/81 05/20 14:54 96 H 99 05/20/ 14:49 96 H 98 05/20/ 14:44 94 H 99 05/20/ 14:39 96 H 98 05/20/ 14:34 96 H 97 05/ 14:29 94 H 97 05/20/ 14:24 94 H 100 05/20/ 14:19 92 H 99 05/20/ 14:14 98 H 98 05/20/ 14:09 95 H 100 05/20/ 14:04 94 H 100 05/20/ 13:59 94 H 99 05/20/22 13:57 94 H 128/81 05/20/22 13:54 98 H 99 05/20/22 13:49 94 H 99 05/20/22 13:44 92 H 100 05/20/22 13:39 90 99 05/20/22 13:34 96 H 98 05/20/22 13:29 91 H 98 05/20/22 13:27 98.4 F 17 0520 13:24 93 H 98 05/20/22 13:19 93 H 98 05/20/22 13:14 94 H 99 05/20/22 13:09 93 H 98 05/20/22 13:04 89 99 05/20/22 12:59 97 H 100 05/20/22 12:57 91 H 120/71 05/20/22 12:54 93 H 98 05/20/22 12:49 99 H 99 05/20/22 12:44 99 H 98 05/20/22 12:39 95 H 95 05/20/22 12:33 88 98 05/20/22 12:29 91 H 96 05/20/22 12:24 89 96 05/20/22 12:18 89 97 0520/22 12:14 91 H 98 05/20/22 12:09 95 H 97 0520/22 12:04 88 98 05/20/22 11:58 92 H 108/64 97 05/20/22 11:54 89 98 05/20/22 11:48 91 H 98 052022 11:43 92 H 97 0520/22 11:39 99 H 99 05/20/22 11:34 92 H 97 0520/22 11:28 94 H 97 0520/22 11:23 87 96 0520/22 11:20 87 94 05/20/22 11:18 86 94 05/20/22 11:14 86 96 05/20/22 11:09 89 96 05/20/22 11:05 86 94 0520/22 11:03 87 94 0520/22 10:59 88 97 05/20/22 10:58 88 138/87 05/20/22 10:57 90 94 05/20/22 10:54 99.2 F 90 20 94 0520/22 10:51 91 H 93 05/20/22 10:48 97 H 95 05/20/22 10:43 89 93 05/20/22 10:38 89 92 05/20/22 10:35 89 93 05/20/22 10:34 94 H 97 05/20/22 10:29 92 H 94 05/20/22 10:25 84 93 05/20/22 10:24 94 H 91 05/20/22 10:18 88 92 05/20/22 10:14 89 92 05/20/22 10:12 88 94 05/20/22 10:09 80 96 05/20/22 10:05 89 93 05/20/22 10:04 89 91 05/20/22 09:59 94 H 93 05/20/22 09:58 95 H 97 05/20/22 09:57 90 115/76 05/20/22 09:53 92 H 93 05/20/22 09:48 90 93 05/20/22 09:43 86 92 05/20/22 09:40 88 93 05/20/22 09:38 88 94 05/20/22 09:34 87 94 05/20/22 09:29 96 H 100 05/20/22 09:26 88 94 05/20/22 09:23 94 H 98 05/20/22 09:19 97 H 94 05/20/22 09:15 90 94 05/20/22 09:13 91 H 94 05/20/22 09:08 94 H 94 05/20/22 09:03 93 H 94 05/20/22 08:58 93 H 99/59 94 05/20/22 08:53 90 95 05/20/22 08:49 94 H 94 05/20/22 08:47 90 94 05/20/22 08:43 92 H 95 05/20/22 08:41 91 H 94 05/20/22 08:39 90 97 05/20/22 08:34 100 H 94 05/20/22 08:29 90 94 05/20/22 08:28 90 94 05/20/22 08:23 88 95 05/20/22 08:19 91 H 98 05/20/22 08:15 95 H 94 05/20/22 08:13 89 94 05/20/22 08:10 86 93 05/20/22 08:08 87 96 05/20/22 08:03 84 96 05/20/22 07:59 98.8 F 18 05/20/22 07:58 91 H 116/70 98 05/20/22 07:53 94 H 95 05/20/22 07:51 96 05/20/22 07:48 89 97 05/20/22 07:43 84 98 05/20/22 07:38 86 95 05/20/22 07:33 88 96 05/20/22 07:30 85 94 05/20/22 07:28 89 97 05/20/22 07:23 85 95 05/20/22 07:18 87 97 05/20/22 07:13 88 96 05/20/22 07:08 89 96 05/20/22 07:03 85 96 05/20/22 06:58 99 H 96 09/23/21 06:53 95 H 99 09/23/21 06:52 98 H 91 09/23/21 06:48 91 H 104/70 94 09/23/21 06:46 95 H 93 Intake and Output 09/23/21 09/23/21 09/24/21 15:59 23:59 07:59 Intake Total 1740 1340 302.5 Output Total 1125 2775 2550 Balance 615 -1435 -2247.5 Intake: IV 1100 1100 182.5 MAGNESIUM SULFATE 40GM/ 1000 182.5 1000ML 40 gm In 1,000 ml @ 2 GM/HR 50 mls/hr IV DIRECT SHERYL Rx#:[id number] NaCl 0.9% 1000 ml 1,000 1000 ml @ 125 mls/hr IV DIRECT SHERYL Rx#:[id number] ceFAZolin 2 GM In NaCl 0. 100 100 9% 100 ml @ 200 mls/hr IV Q8H SHERYL Rx#:[id number] Oral 640 240 Intake, Free Water 120 Output: Urine 1125 2775 2550 Indwelling Catheter 1125 2775 1050 Void 1500 Other: Total, Intake Amount 240 240 Total, Output Amount 275 700 800 # Voids Void 1 - Exam Breasts: Present: deferred Cardiovascular: Present: Regular rate, Normal S1 Lungs: Present: Clear to auscultation Abdomen: Present: normal appearance, soft, normal bowel sounds Uterus: Present: fundal height below umbilicus Extremities: Present: normal Deep Tendon Reflex Grade: Normal +2 - Labs Labs: Abnormal lab results 09/23/21 09/23/21 09/23/21 Range/Units 07:46 07:46 19:03 WBC 15.3 H (4.5-11.0) K/mm3 RBC 2.80 L (3.65-5.03) M/mm3 Hgb 8.6 L (10.1-14.3) gm/dl Hct 25.7 L (30.3-42.9) % RDW 16.2 H (13.2-15.2) % [place] # (Auto) 0.9 H (0.0-0.8) K/mm3 Seg Neutrophils % 71.4 H (40.0-70.0) % Seg Neutrophils # 10.9 H (1.8-7.7) K/mm3 Magnesium 5.40 H 6.70 H (1.7-2.3) mg/dL 09/24/21 Range/Units 00:19 WBC (4.5-11.0) K/mm3 RBC (3.65-5.03) M/mm3 Hgb (10.1-14.3) gm/dl Hct (30.3-42.9) % RDW (13.2-15.2) % [place] # (Auto) (0.0-0.8) K/mm3 Seg Neutrophils % (40.0-70.0) % Seg Neutrophils # (1.8-7.7) K/mm3 Magnesium 6.80 H (1.7-2.3) mg/dL
[2021-09-24 08:10] LABS: Basophils # (Auto) 0.1 K/mm3 (0.0-0.1); Basophils % (Auto) 0.5 % (0.0-1.8); Eosinophils # (Auto) 0.3 K/mm3 (0.0-0.4); Eosinophils % (Auto) 1.9 % (0.0-4.3); Hematocrit 26.1 % (30.3-42.9); Hemoglobin 8.6 gm/dl (10.1-14.3); Lymphocytes # (Auto) 2.2 K/mm3 (1.2-5.4); Lymphocytes % (Auto) 17.1 % (13.4-35.0); Mean Corpuscular HGB Conc 33 % (30-34); Mean Corpuscular Volume 92 fl (79-97); Monocytes # (Auto) 0.7 K/mm3 (0.0-0.8); Platelet Count 233 K/mm3 (140-440); Red Blood Count 2.82 M/mm3 (3.65-5.03); Red Cell Distribution Width 16.2 % (13.2-15.2)
[2021-09-24] MEDS: amLODIPine 5 MG TAB PO SCH (10:17)
[2021-09-24] MEDS: DOCUSATE SODIUM 100 MG CAP PO SCH ×2 (10:20→22:21)
[2021-09-24] MEDS: FERROUS SULFATE 325 MG TAB PO SCH ×2 (10:21→22:21)
[2021-09-24] MEDS: ASCORBIC ACID 500 MG TAB PO SCH ×2 (10:21→22:21)
[2021-09-25] MEDS: HYDROcodone/ACETAMINOPHEN 5-325 MG TAB PO PRN (06:22)
--- NOTE | 2021-09-25 07:20 | Progress Note ---
Subjective - Subjective Date of service: 09/25/21 Principal diagnosis: /postop day 1 S/P primary C/S Interval history: SP C/SECTION POD#3 PE benign VSS and reviewed as below Meets discharge criteria Luther Philip MD Vital Signs - 24 hr 09/23/21 09/23/21 09/23/21 06:46 06:48 06:52 Temperature Pulse Rate 95 H 91 H 98 H Respiratory Rate Blood Pressure 104/70 Blood Pressure [Left] O2 Sat by Pulse 93 94 91 Oximetry O2 Sat by Pulse Oximetry [ Anterior Bilateral Throughout] 09/23/21 09/23/21 09/23/21 06:53 06:58 07:03 Temperature Pulse Rate 95 H 99 H 85 Respiratory Rate Blood Pressure Blood Pressure [Left] O2 Sat by Pulse 99 96 96 Oximetry O2 Sat by Pulse Oximetry [ Anterior Bilateral Throughout] 09/23/21 09/23/21 09/23/21 07:08 07:13 07:18 Temperature Pulse Rate 89 88 87 Respiratory Rate Blood Pressure Blood Pressure [Left] O2 Sat by Pulse 96 96 97 Oximetry O2 Sat by Pulse Oximetry [ Anterior Bilateral Throughout] 09/23/21 09/23/21 09/23/21 07:23 07:28 07:30 Temperature Pulse Rate 85 89 85 Respiratory Rate Blood Pressure Blood Pressure [Left] O2 Sat by Pulse 95 97 94 Oximetry O2 Sat by Pulse Oximetry [ Anterior Bilateral Throughout] 09/23/21 09/23/21 09/23/21 07:33 07:38 07:43 Temperature Pulse Rate 88 86 84 Respiratory Rate Blood Pressure Blood Pressure [Left] O2 Sat by Pulse 96 95 98 Oximetry O2 Sat by Pulse Oximetry [ Anterior Bilateral Throughout] 09/23/21 09/23/21 09/23/21 07:48 07:51 07:53 Temperature Pulse Rate 89 94 H Respiratory Rate Blood Pressure Blood Pressure [Left] O2 Sat by Pulse 97 95 Oximetry O2 Sat by Pulse 96 Oximetry [ Anterior Bilateral Throughout] 09/23/21 09/23/21 09/23/21 07:58 07:59 08:03 Temperature 98.8 F Pulse Rate 91 H 84 Respiratory 18 Rate Blood Pressure 116/70 Blood Pressure [Left] O2 Sat by Pulse 98 96 Oximetry O2 Sat by Pulse Oximetry [ Anterior Bilateral Throughout] 09/23/21 09/23/21 09/23/21 08:08 08:10 08:13 Temperature Pulse Rate 87 86 89 Respiratory Rate Blood Pressure Blood Pressure [Left] O2 Sat by Pulse 96 93 94 Oximetry O2 Sat by Pulse Oximetry [ Anterior Bilateral Throughout] 09/23/21 09/23/21 09/23/21 08:15 08:19 08:23 Temperature Pulse Rate 95 H 91 H 88 Respiratory Rate Blood Pressure Blood Pressure [Left] O2 Sat by Pulse 94 98 95 Oximetry O2 Sat by Pulse Oximetry [ Anterior Bilateral Throughout] 09/23/21 09/23/21 09/23/21 08:28 08:29 08:34 Temperature Pulse Rate 90 90 100 H Respiratory Rate Blood Pressure Blood Pressure [Left] O2 Sat by Pulse 94 94 94 Oximetry O2 Sat by Pulse Oximetry [ Anterior Bilateral Throughout] 09/23/21 09/23/21 09/23/21 08:39 08:41 08:43 Temperature Pulse Rate 90 91 H 92 H Respiratory Rate Blood Pressure Blood Pressure [Left] O2 Sat by Pulse 97 94 95 Oximetry O2 Sat by Pulse Oximetry [ Anterior Bilateral Throughout] 09/23/21 09/23/21 09/23/21 08:47 08:49 08:53 Temperature Pulse Rate 90 94 H 90 Respiratory Rate Blood Pressure Blood Pressure [Left] O2 Sat by Pulse 94 94 95 Oximetry O2 Sat by Pulse Oximetry [ Anterior Bilateral Throughout] 09/23/21 09/23/21 09/23/21 08:58 09:03 09:08 Temperature Pulse Rate 93 H 93 H 94 H Respiratory Rate Blood Pressure 99/59 Blood Pressure [Left] O2 Sat by Pulse 94 94 94 Oximetry O2 Sat by Pulse Oximetry [ Anterior Bilateral Throughout] 09/23/21 09/23/21 09/23/21 09:13 09:15 09:19 Temperature Pulse Rate 91 H 90 97 H Respiratory Rate Blood Pressure Blood Pressure [Left] O2 Sat by Pulse 94 94 94 Oximetry O2 Sat by Pulse Oximetry [ Anterior Bilateral Throughout] 09/23/21 09/23/21 09/23/21 09:23 09:26 09:29 Temperature Pulse Rate 94 H 88 96 H Respiratory Rate Blood Pressure Blood Pressure [Left] O2 Sat by Pulse 98 94 100 Oximetry O2 Sat by Pulse Oximetry [ Anterior Bilateral Throughout] 09/23/21 09/23/21 09/23/21 09:34 09:38 09:40 Temperature Pulse Rate 87 88 88 Respiratory Rate Blood Pressure Blood Pressure [Left] O2 Sat by Pulse 94 94 93 Oximetry O2 Sat by Pulse Oximetry [ Anterior Bilateral Throughout] 09/23/21 09/23/21 09/23/21 09:43 09:48 09:53 Temperature Pulse Rate 86 90 92 H Respiratory Rate Blood Pressure Blood Pressure [Left] O2 Sat by Pulse 92 93 93 Oximetry O2 Sat by Pulse Oximetry [ Anterior Bilateral Throughout] 09/23/21 09/23/21 09/23/21 09:57 09:58 09:59 Temperature Pulse Rate 90 95 H 94 H Respiratory Rate Blood Pressure 115/76 Blood Pressure [Left] O2 Sat by Pulse 97 93 Oximetry O2 Sat by Pulse Oximetry [ Anterior Bilateral Throughout] 09/23/21 09/23/21 09/23/21 10:04 10:05 10:09 Temperature Pulse Rate 89 89 80 Respiratory Rate Blood Pressure Blood Pressure [Left] O2 Sat by Pulse 91 93 96 Oximetry O2 Sat by Pulse Oximetry [ Anterior Bilateral Throughout] 09/23/21 09/23/21 09/23/21 10:12 10:14 10:18 Temperature Pulse Rate 88 89 88 Respiratory Rate Blood Pressure Blood Pressure [Left] O2 Sat by Pulse 94 92 92 Oximetry O2 Sat by Pulse Oximetry [ Anterior Bilateral Throughout] 09/23/21 09/23/21 09/23/21 10:24 10:25 10:29 Temperature Pulse Rate 94 H 84 92 H Respiratory Rate Blood Pressure Blood Pressure [Left] O2 Sat by Pulse 91 93 94 Oximetry O2 Sat by Pulse Oximetry [ Anterior Bilateral Throughout] 09/23/21 09/23/21 09/23/21 10:34 10:35 10:38 Temperature Pulse Rate 94 H 89 89 Respiratory Rate Blood Pressure Blood Pressure [Left] O2 Sat by Pulse 97 93 92 Oximetry O2 Sat by Pulse Oximetry [ Anterior Bilateral Throughout] 09/23/21 09/23/21 09/23/21 10:43 10:48 10:51 Temperature Pulse Rate 89 97 H 91 H Respiratory Rate Blood Pressure Blood Pressure [Left] O2 Sat by Pulse 93 95 93 Oximetry O2 Sat by Pulse Oximetry [ Anterior Bilateral Throughout] 09/23/21 09/23/21 09/23/21 10:54 10:57 10:58 Temperature 99.2 F Pulse Rate 90 90 88 Respiratory 20 Rate Blood Pressure 138/87 Blood Pressure [Left] O2 Sat by Pulse 94 94 Oximetry O2 Sat by Pulse Oximetry [ Anterior Bilateral Throughout] 09/23/21 09/23/21 09/23/21 10:59 11:03 11:05 Temperature Pulse Rate 88 87 86 Respiratory Rate Blood Pressure Blood Pressure [Left] O2 Sat by Pulse 97 94 94 Oximetry O2 Sat by Pulse Oximetry [ Anterior Bilateral Throughout] 09/23/21 09/23/21 09/23/21 11:09 11:14 11:18 Temperature Pulse Rate 89 86 86 Respiratory Rate Blood Pressure Blood Pressure [Left] O2 Sat by Pulse 96 96 94 Oximetry O2 Sat by Pulse Oximetry [ Anterior Bilateral Throughout] 09/23/21 09/23/21 09/23/21 11:20 11:23 11:28 Temperature Pulse Rate 87 87 94 H Respiratory Rate Blood Pressure Blood Pressure [Left] O2 Sat by Pulse 94 96 97 Oximetry O2 Sat by Pulse Oximetry [ Anterior Bilateral Throughout] 09/23/21 09/23/21 09/23/21 11:34 11:39 11:43 Temperature Pulse Rate 92 H 99 H 92 H Respiratory Rate Blood Pressure Blood Pressure [Left] O2 Sat by Pulse 97 99 97 Oximetry O2 Sat by Pulse Oximetry [ Anterior Bilateral Throughout] 09/23/21 09/23/21 09/23/21 11:48 11:54 11:58 Temperature Pulse Rate 91 H 89 92 H Respiratory Rate Blood Pressure 108/64 Blood Pressure [Left] O2 Sat by Pulse 98 98 97 Oximetry O2 Sat by Pulse Oximetry [ Anterior Bilateral Throughout] 09/23/21 09/23/21 09/23/21 12:04 12:09 12:14 Temperature Pulse Rate 88 95 H 91 H Respiratory Rate Blood Pressure Blood Pressure [Left] O2 Sat by Pulse 98 97 98 Oximetry O2 Sat by Pulse Oximetry [ Anterior Bilateral Throughout] 09/23/21 09/23/21 09/23/21 12:18 12:24 12:29 Temperature Pulse Rate 89 89 91 H Respiratory Rate Blood Pressure Blood Pressure [Left] O2 Sat by Pulse 97 96 96 Oximetry O2 Sat by Pulse Oximetry [ Anterior Bilateral Throughout] 09/23/21 09/23/21 09/23/21 12:33 12:39 12:44 Temperature Pulse Rate 88 95 H 99 H Respiratory Rate Blood Pressure Blood Pressure [Left] O2 Sat by Pulse 98 95 98 Oximetry O2 Sat by Pulse Oximetry [ Anterior Bilateral Throughout] 09/23/21 09/23/21 09/23/21 12:49 12:54 12:57 Temperature Pulse Rate 99 H 93 H 91 H Respiratory Rate Blood Pressure 120/71 Blood Pressure [Left] O2 Sat by Pulse 99 98 Oximetry O2 Sat by Pulse Oximetry [ Anterior Bilateral Throughout] 09/23/21 09/23/21 09/23/21 12:59 13:04 13:09 Temperature Pulse Rate 97 H 89 93 H Respiratory Rate Blood Pressure Blood Pressure [Left] O2 Sat by Pulse 100 99 98 Oximetry O2 Sat by Pulse Oximetry [ Anterior Bilateral Throughout] 09/23/21 09/23/21 09/23/21 13:14 13:19 13:24 Temperature Pulse Rate 94 H 93 H 93 H Respiratory Rate Blood Pressure Blood Pressure [Left] O2 Sat by Pulse 99 98 98 Oximetry O2 Sat by Pulse Oximetry [ Anterior Bilateral Throughout] 09/23/21 09/23/21 09/23/21 13:27 13:29 13:34 Temperature 98.4 F Pulse Rate 91 H 96 H Respiratory 17 Rate Blood Pressure Blood Pressure [Left] O2 Sat by Pulse 98 98 Oximetry O2 Sat by Pulse Oximetry [ Anterior Bilateral Throughout] 09/23/21 09/23/21 09/23/21 13:39 13:44 13:49 Temperature Pulse Rate 90 92 H 94 H Respiratory Rate Blood Pressure Blood Pressure [Left] O2 Sat by Pulse 99 100 99 Oximetry O2 Sat by Pulse Oximetry [ Anterior Bilateral Throughout] 09/23/21 09/23/21 09/23/21 13:54 13:57 13:59 Temperature Pulse Rate 98 H 94 H 94 H Respiratory Rate Blood Pressure 128/81 Blood Pressure [Left] O2 Sat by Pulse 99 99 Oximetry O2 Sat by Pulse Oximetry [ Anterior Bilateral Throughout] 09/23/21 09/23/21 09/23/21 14:04 14:09 14:14 Temperature Pulse Rate 94 H 95 H 98 H Respiratory Rate Blood Pressure Blood Pressure [Left] O2 Sat by Pulse 100 100 98 Oximetry O2 Sat by Pulse Oximetry [ Anterior Bilateral Throughout] 09/23/21 09/23/21 09/23/21 14:19 14:24 14:29 Temperature Pulse Rate 92 H 94 H 94 H Respiratory Rate Blood Pressure Blood Pressure [Left] O2 Sat by Pulse 99 100 97 Oximetry O2 Sat by Pulse Oximetry [ Anterior Bilateral Throughout] 09/23/21 09/23/21 09/23/21 14:34 14:39 14:44 Temperature Pulse Rate 96 H 96 H 94 H Respiratory Rate Blood Pressure Blood Pressure [Left] O2 Sat by Pulse 97 98 99 Oximetry O2 Sat by Pulse Oximetry [ Anterior Bilateral Throughout] 09/23/21 09/23/21 09/23/21 14:49 14:54 14:57 Temperature Pulse Rate 96 H 96 H 96 H Respiratory Rate Blood Pressure 130/81 Blood Pressure [Left] O2 Sat by Pulse 98 99 Oximetry O2 Sat by Pulse Oximetry [ Anterior Bilateral Throughout] 09/23/21 09/23/21 09/23/21 14:59 15:04 15:09 Temperature Pulse Rate 98 H 98 H 97 H Respiratory Rate Blood Pressure Blood Pressure [Left] O2 Sat by Pulse 100 99 99 Oximetry O2 Sat by Pulse Oximetry [ Anterior Bilateral Throughout] 09/23/21 09/23/21 09/23/21 15:14 15:19 15:24 Temperature Pulse Rate 96 H 96 H 96 H Respiratory Rate Blood Pressure Blood Pressure [Left] O2 Sat by Pulse 97 97 97 Oximetry O2 Sat by Pulse Oximetry [ Anterior Bilateral Throughout] 09/23/21 09/23/21 09/23/21 15:29 15:31 15:34 Temperature Pulse Rate 101 H 95 H 94 H Respiratory Rate Blood Pressure Blood Pressure [Left] O2 Sat by Pulse 96 93 98 Oximetry O2 Sat by Pulse Oximetry [ Anterior Bilateral Throughout] 09/23/21 09/23/21 09/23/21 15:39 15:44 15:49 Temperature Pulse Rate 97 H 93 H 95 H Respiratory Rate Blood Pressure Blood Pressure [Left] O2 Sat by Pulse 98 98 98 Oximetry O2 Sat by Pulse Oximetry [ Anterior Bilateral Throughout] 09/23/21 09/23/21 09/23/21 15:54 15:57 15:59 Temperature Pulse Rate 95 H 93 H 94 H Respiratory Rate Blood Pressure 126/76 Blood Pressure [Left] O2 Sat by Pulse 97 98 Oximetry O2 Sat by Pulse Oximetry [ Anterior Bilateral Throughout] 09/23/21 09/23/21 09/23/21 16:04 16:05 16:09 Temperature 98.6 F Pulse Rate 95 H 92 H Respiratory 19 Rate Blood Pressure Blood Pressure [Left] O2 Sat by Pulse 99 98 Oximetry O2 Sat by Pulse Oximetry [ Anterior Bilateral Throughout] 09/23/21 09/23/21 09/23/21 16:14 16:19 16:24 Temperature Pulse Rate 96 H 95 H 93 H Respiratory Rate Blood Pressure Blood Pressure [Left] O2 Sat by Pulse 97 99 98 Oximetry O2 Sat by Pulse Oximetry [ Anterior Bilateral Throughout] 09/23/21 09/23/21 09/23/21 16:29 16:34 16:39 Temperature Pulse Rate 97 H 96 H 97 H Respiratory Rate Blood Pressure Blood Pressure [Left] O2 Sat by Pulse 100 98 98 Oximetry O2 Sat by Pulse Oximetry [ Anterior Bilateral Throughout] 09/23/21 09/23/21 09/23/21 16:44 16:49 16:54 Temperature Pulse Rate 95 H 98 H 97 H Respiratory Rate Blood Pressure Blood Pressure [Left] O2 Sat by Pulse 99 98 98 Oximetry O2 Sat by Pulse Oximetry [ Anterior Bilateral Throughout] 09/23/21 09/23/21 09/23/21 16:57 16:59 17:04 Temperature Pulse Rate 98 H 97 H 99 H Respiratory Rate Blood Pressure 123/75 Blood Pressure [Left] O2 Sat by Pulse 99 98 Oximetry O2 Sat by Pulse Oximetry [ Anterior Bilateral Throughout] 09/23/21 09/23/21 09/23/21 17:09 17:14 17:19 Temperature Pulse Rate 97 H 102 H 99 H Respiratory Rate Blood Pressure Blood Pressure [Left] O2 Sat by Pulse 99 98 98 Oximetry O2 Sat by Pulse Oximetry [ Anterior Bilateral Throughout] 09/23/21 09/23/21 09/23/21 17:24 17:29 17:34 Temperature Pulse Rate 98 H 100 H 100 H Respiratory Rate Blood Pressure Blood Pressure [Left] O2 Sat by Pulse 100 99 99 Oximetry O2 Sat by Pulse Oximetry [ Anterior Bilateral Throughout] 09/23/21 09/23/21 09/23/21 17:39 17:44 17:49 Temperature Pulse Rate 100 H 98 H 98 H Respiratory Rate Blood Pressure Blood Pressure [Left] O2 Sat by Pulse 99 98 99 Oximetry O2 Sat by Pulse Oximetry [ Anterior Bilateral Throughout] 09/23/21 09/23/21 09/23/21 17:54 17:57 17:59 Temperature Pulse Rate 101 H 101 H 101 H Respiratory Rate Blood Pressure 133/80 Blood Pressure [Left] O2 Sat by Pulse 97 98 Oximetry O2 Sat by Pulse Oximetry [ Anterior Bilateral Throughout] 09/23/21 09/23/21 09/23/21 18:04 18:09 18:14 Temperature Pulse Rate 100 H 102 H 103 H Respiratory Rate Blood Pressure Blood Pressure [Left] O2 Sat by Pulse 99 99 100 Oximetry O2 Sat by Pulse Oximetry [ Anterior Bilateral Throughout] 09/23/21 09/23/21 09/23/21 18:19 18:24 18:29 Temperature Pulse Rate 110 H 99 H 100 H Respiratory Rate Blood Pressure Blood Pressure [Left] O2 Sat by Pulse 99 100 99 Oximetry O2 Sat by Pulse Oximetry [ Anterior Bilateral Throughout] 09/23/21 09/23/21 09/23/21 18:34 18:39 18:44 Temperature Pulse Rate 97 H 98 H 97 H Respiratory Rate Blood Pressure Blood Pressure [Left] O2 Sat by Pulse 99 99 99 Oximetry O2 Sat by Pulse Oximetry [ Anterior Bilateral Throughout] 09/23/21 09/23/21 09/23/21 18:49 18:54 18:57 Temperature Pulse Rate 99 H 99 H 99 H Respiratory Rate Blood Pressure 130/73 Blood Pressure [Left] O2 Sat by Pulse 100 98 Oximetry O2 Sat by Pulse Oximetry [ Anterior Bilateral Throughout] 09/23/21 09/23/21 09/23/21 18:59 19:04 19:09 Temperature Pulse Rate 103 H 100 H 99 H Respiratory Rate Blood Pressure Blood Pressure [Left] O2 Sat by Pulse 99 100 99 Oximetry O2 Sat by Pulse Oximetry [ Anterior Bilateral Throughout] 09/23/21 09/23/21 09/23/21 19:14 19:19 19:24 Temperature Pulse Rate 99 H 102 H 98 H Respiratory Rate Blood Pressure Blood Pressure [Left] O2 Sat by Pulse 98 99 98 Oximetry O2 Sat by Pulse Oximetry [ Anterior Bilateral Throughout] 09/23/21 09/23/21 09/23/21 19:29 19:34 19:39 Temperature Pulse Rate 97 H 100 H 97 H Respiratory Rate Blood Pressure Blood Pressure [Left] O2 Sat by Pulse 97 98 97 Oximetry O2 Sat by Pulse 100 Oximetry [ Anterior Bilateral Throughout] 09/23/21 09/23/21 09/23/21 19:40 19:44 19:49 Temperature 98.5 F Pulse Rate 100 H 98 H Respiratory 18 Rate Blood Pressure Blood Pressure [Left] O2 Sat by Pulse 100 99 99 Oximetry O2 Sat by Pulse Oximetry [ Anterior Bilateral Throughout] 09/23/21 09/23/21 09/23/21 19:54 19:57 19:59 Temperature Pulse Rate 97 H 96 H 97 H Respiratory Rate Blood Pressure 125/76 Blood Pressure [Left] O2 Sat by Pulse 98 98 Oximetry O2 Sat by Pulse Oximetry [ Anterior Bilateral Throughout] 09/23/21 09/23/21 09/23/21 20:04 20:09 20:14 Temperature Pulse Rate 97 H 98 H 97 H Respiratory Rate Blood Pressure Blood Pressure [Left] O2 Sat by Pulse 97 98 98 Oximetry O2 Sat by Pulse Oximetry [ Anterior Bilateral Throughout] 09/23/21 09/23/21 09/23/21 20:19 20:24 20:29 Temperature Pulse Rate 97 H 97 H 97 H Respiratory Rate Blood Pressure Blood Pressure [Left] O2 Sat by Pulse 98 99 98 Oximetry O2 Sat by Pulse Oximetry [ Anterior Bilateral Throughout] 09/23/21 09/23/21 09/23/21 20:34 20:39 20:44 Temperature Pulse Rate 96 H 97 H 100 H Respiratory Rate Blood Pressure Blood Pressure [Left] O2 Sat by Pulse 98 98 98 Oximetry O2 Sat by Pulse Oximetry [ Anterior Bilateral Throughout] 09/23/21 09/23/21 09/23/21 20:49 20:54 20:57 Temperature Pulse Rate 98 H 97 H 95 H Respiratory Rate Blood Pressure 139/83 Blood Pressure [Left] O2 Sat by Pulse 99 98 Oximetry O2 Sat by Pulse Oximetry [ Anterior Bilateral Throughout] 09/23/21 09/23/21 09/23/21 20:59 21:04 21:05 Temperature Pulse Rate 98 H 105 H 109 H Respiratory Rate Blood Pressure Blood Pressure [Left] O2 Sat by Pulse 99 97 93 Oximetry O2 Sat by Pulse Oximetry [ Anterior Bilateral Throughout] 09/23/21 09/23/21 09/23/21 21:09 21:14 21:19 Temperature Pulse Rate 103 H 107 H 98 H Respiratory Rate Blood Pressure Blood Pressure [Left] O2 Sat by Pulse 97 99 98 Oximetry O2 Sat by Pulse Oximetry [ Anterior Bilateral Throughout] 09/23/21 09/23/21 09/23/21 21:24 21:29 21:34 Temperature Pulse Rate 98 H 98 H 101 H Respiratory Rate Blood Pressure Blood Pressure [Left] O2 Sat by Pulse 99 98 98 Oximetry O2 Sat by Pulse Oximetry [ Anterior Bilateral Throughout] 09/23/21 09/23/21 09/23/21 21:39 21:44 21:49 Temperature Pulse Rate 99 H 103 H 99 H Respiratory Rate Blood Pressure Blood Pressure [Left] O2 Sat by Pulse 98 98 98 Oximetry O2 Sat by Pulse Oximetry [ Anterior Bilateral Throughout] 09/23/21 09/23/21 09/23/21 21:54 21:57 21:59 Temperature Pulse Rate 101 H 94 H 100 H Respiratory Rate Blood Pressure 126/79 Blood Pressure [Left] O2 Sat by Pulse 100 98 Oximetry O2 Sat by Pulse Oximetry [ Anterior Bilateral Throughout] 09/23/21 09/23/21 09/23/21 22:04 22:09 22:14 Temperature Pulse Rate 98 H 101 H 98 H Respiratory Rate Blood Pressure Blood Pressure [Left] O2 Sat by Pulse 97 97 98 Oximetry O2 Sat by Pulse Oximetry [ Anterior Bilateral Throughout] 09/23/21 09/23/21 09/23/21 22:19 22:24 22:29 Temperature Pulse Rate 98 H 97 H 94 H Respiratory Rate Blood Pressure Blood Pressure [Left] O2 Sat by Pulse 97 99 98 Oximetry O2 Sat by Pulse Oximetry [ Anterior Bilateral Throughout] 09/23/21 09/23/21 09/23/21 22:34 22:39 22:44 Temperature Pulse Rate 95 H 94 H 92 H Respiratory Rate Blood Pressure Blood Pressure [Left] O2 Sat by Pulse 98 97 97 Oximetry O2 Sat by Pulse Oximetry [ Anterior Bilateral Throughout] 09/23/21 09/23/21 09/23/21 22:49 22:54 22:58 Temperature Pulse Rate 92 H 99 H 92 H Respiratory Rate Blood Pressure 119/71 Blood Pressure [Left] O2 Sat by Pulse 99 98 Oximetry O2 Sat by Pulse Oximetry [ Anterior Bilateral Throughout] 09/23/21 09/23/21 09/23/21 22:59 23:04 23:09 Temperature Pulse Rate 96 H 90 90 Respiratory Rate Blood Pressure Blood Pressure [Left] O2 Sat by Pulse 98 97 97 Oximetry O2 Sat by Pulse Oximetry [ Anterior Bilateral Throughout] 09/23/21 09/23/21 09/23/21 23:14 23:19 23:24 Temperature Pulse Rate 91 H 91 H 94 H Respiratory Rate Blood Pressure Blood Pressure [Left] O2 Sat by Pulse 97 98 97 Oximetry O2 Sat by Pulse Oximetry [ Anterior Bilateral Throughout] 09/23/21 09/23/21 09/23/21 23:29 23:34 23:39 Temperature Pulse Rate 94 H 88 90 Respiratory Rate Blood Pressure Blood Pressure [Left] O2 Sat by Pulse 96 95 97 Oximetry O2 Sat by Pulse Oximetry [ Anterior Bilateral Throughout] 09/23/21 09/23/21 09/23/21 23:44 23:49 23:51 Temperature Pulse Rate 98 H 92 H 89 Respiratory Rate Blood Pressure Blood Pressure [Left] O2 Sat by Pulse 81 L 98 88 Oximetry O2 Sat by Pulse Oximetry [ Anterior Bilateral Throughout] 09/23/21 09/23/21 09/23/21 23:54 23:57 23:59 Temperature Pulse Rate 97 H 90 89 Respiratory Rate Blood Pressure 127/69 Blood Pressure [Left] O2 Sat by Pulse 96 98 Oximetry O2 Sat by Pulse Oximetry [ Anterior Bilateral Throughout] 09/24/21 09/24/21 09/24/21 00:04 00:09 00:14 Temperature Pulse Rate 90 86 88 Respiratory Rate Blood Pressure Blood Pressure [Left] O2 Sat by Pulse 98 95 96 Oximetry O2 Sat by Pulse Oximetry [ Anterior Bilateral Throughout] 09/24/21 09/24/21 09/24/21 00:19 00:24 00:29 Temperature Pulse Rate 94 H 90 89 Respiratory Rate Blood Pressure Blood Pressure [Left] O2 Sat by Pulse 97 99 96 Oximetry O2 Sat by Pulse Oximetry [ Anterior Bilateral Throughout] 09/24/21 09/24/21 09/24/21 00:34 00:39 00:44 Temperature Pulse Rate 92 H 90 91 H Respiratory Rate Blood Pressure Blood Pressure [Left] O2 Sat by Pulse 97 96 97 Oximetry O2 Sat by Pulse Oximetry [ Anterior Bilateral Throughout] 09/24/21 09/24/21 09/24/21 00:49 00:54 00:57 Temperature Pulse Rate 91 H 88 93 H Respiratory Rate Blood Pressure 120/69 Blood Pressure [Left] O2 Sat by Pulse 97 97 Oximetry O2 Sat by Pulse Oximetry [ Anterior Bilateral Throughout] 09/24/21 09/24/21 09/24/21 00:59 01:04 01:09 Temperature Pulse Rate 93 H 103 H 106 H Respiratory Rate Blood Pressure Blood Pressure [Left] O2 Sat by Pulse 97 97 97 Oximetry O2 Sat by Pulse Oximetry [ Anterior Bilateral Throughout] 09/24/21 09/24/21 09/24/21 01:14 01:17 01:19 Temperature 98.9 F Pulse Rate 98 H 96 H 97 H Respiratory 19 Rate Blood Pressure 132/76 Blood Pressure [Left] O2 Sat by Pulse 97 98 Oximetry O2 Sat by Pulse Oximetry [ Anterior Bilateral Throughout] 09/24/21 09/24/21 09/24/21 01:24 01:29 01:34 Temperature Pulse Rate 93 H 95 H 96 H Respiratory Rate Blood Pressure Blood Pressure [Left] O2 Sat by Pulse 98 96 97 Oximetry O2 Sat by Pulse Oximetry [ Anterior Bilateral Throughout] 09/24/21 09/24/21 09/24/21 01:39 01:44 01:49 Temperature Pulse Rate 104 H 98 H 99 H Respiratory Rate Blood Pressure Blood Pressure [Left] O2 Sat by Pulse 100 98 99 Oximetry O2 Sat by Pulse Oximetry [ Anterior Bilateral Throughout] 09/24/21 09/24/21 09/24/21 01:54 01:59 02:04 Temperature Pulse Rate 99 H 95 H 97 H Respiratory Rate Blood Pressure Blood Pressure [Left] O2 Sat by Pulse 98 97 98 Oximetry O2 Sat by Pulse Oximetry [ Anterior Bilateral Throughout] 09/24/21 09/24/21 09/24/21 02:09 02:14 02:19 Temperature Pulse Rate 96 H 93 H 99 H Respiratory Rate Blood Pressure Blood Pressure [Left] O2 Sat by Pulse 98 97 98 Oximetry O2 Sat by Pulse Oximetry [ Anterior Bilateral Throughout] 09/24/21 09/24/21 09/24/21 02:26 02:27 02:32 Temperature Pulse Rate 106 H 96 H 95 H Respiratory Rate Blood Pressure 115/71 Blood Pressure [Left] O2 Sat by Pulse 0 L 0 L 98 Oximetry O2 Sat by Pulse Oximetry [ Anterior Bilateral Throughout] 09/24/21 09/24/21 09/24/21 02:37 02:42 02:47 Temperature Pulse Rate 94 H 95 H 93 H Respiratory Rate Blood Pressure Blood Pressure [Left] O2 Sat by Pulse 98 98 97 Oximetry O2 Sat by Pulse Oximetry [ Anterior Bilateral Throughout] 09/24/21 09/24/21 09/24/21 02:52 02:57 03:02 Temperature Pulse Rate 93 H 91 H 92 H Respiratory Rate Blood Pressure Blood Pressure [Left] O2 Sat by Pulse 97 98 98 Oximetry O2 Sat by Pulse Oximetry [ Anterior Bilateral Throughout] 09/24/21 09/24/21 09/24/21 03:07 03:12 03:15 Temperature Pulse Rate 94 H 94 H 94 H Respiratory Rate Blood Pressure 138/70 Blood Pressure [Left] O2 Sat by Pulse 97 98 Oximetry O2 Sat by Pulse Oximetry [ Anterior Bilateral Throughout] 09/24/21 09/24/21 04:14 04:15 Temperature 98.5 F Pulse Rate 90 Respiratory 20 Rate Blood Pressure Blood Pressure 125/77 [Left] O2 Sat by Pulse 100 Oximetry O2 Sat by Pulse 100 Oximetry [ Anterior Bilateral Throughout] Vital Signs - 12hr 09/19/21 09/20/21 09/20/21 23:37 02:07 02:08 Temperature 98.6 F Pulse Rate 93 H 88 88 Respiratory 18 Rate Blood Pressure 126/70 131/71 131/71 Blood Pressure 126/70 [Left] Blood Pressure [Right] O2 Sat by Pulse Oximetry O2 Sat by Pulse Oximetry [ Anterior Bilateral Throughout] 09/20/21 09/20/21 09/20/21 04:35 04:36 09:03 Temperature 98.5 F 99 F Pulse Rate 88 89 Respiratory 17 20 Rate Blood Pressure 133/80 Blood Pressure [Left] Blood Pressure 133/80 116/75 [Right] O2 Sat by Pulse 99 Oximetry O2 Sat by Pulse Oximetry [ Anterior Bilateral Throughout] 09/20/21 09/20/21 09/20/21 09:04 09:05 09:09 Temperature Pulse Rate 89 96 H 97 H Respiratory Rate Blood Pressure 117/70 116/75 Blood Pressure [Left] Blood Pressure [Right] O2 Sat by Pulse 99 Oximetry O2 Sat by Pulse Oximetry [ Anterior Bilateral Throughout] 09/20/21 09/20/21 09/20/21 09:14 09:15 09:19 Temperature Pulse Rate 101 H 96 H Respiratory Rate Blood Pressure Blood Pressure [Left] Blood Pressure [Right] O2 Sat by Pulse 98 98 Oximetry O2 Sat by Pulse 98 Oximetry [ Anterior Bilateral Throughout] 09/20/21 09/20/21 09/20/21 09:24 09:29 09:34 Temperature Pulse Rate 97 H 96 H 89 Respiratory Rate Blood Pressure Blood Pressure [Left] Blood Pressure [Right] O2 Sat by Pulse 98 98 99 Oximetry O2 Sat by Pulse Oximetry [ Anterior Bilateral Throughout] 09/20/21 09/20/21 09/20/21 09:39 09:44 09:49 Temperature Pulse Rate 92 H 89 97 H Respiratory Rate Blood Pressure Blood Pressure [Left] Blood Pressure [Right] O2 Sat by Pulse 98 98 98 Oximetry O2 Sat by Pulse Oximetry [ Anterior Bilateral Throughout] 09/20/21 09/20/21 09/20/21 09:51 09:53 09:54 Temperature Pulse Rate 89 88 88 Respiratory Rate Blood Pressure 116/75 116/75 Blood Pressure [Left] Blood Pressure [Right] O2 Sat by Pulse 98 Oximetry O2 Sat by Pulse Oximetry [ Anterior Bilateral Throughout] 09/20/21 09:59 Temperature Pulse Rate 95 H Respiratory Rate Blood Pressure Blood Pressure [Left] Blood Pressure [Right] O2 Sat by Pulse 98 Oximetry O2 Sat by Pulse Oximetry [ Anterior Bilateral Throughout] Vital Signs - 24 hr 09/18/21 09/18/21 09/18/21 09:56 09:57 18:06 Pulse Rate 88 Blood Pressure 128/75 128/75 138/82 O2 Sat by Pulse Oximetry [ Anterior Bilateral Throughout] 09/18/21 09/18/21 09/18/21 18:07 21:11 23:02 Pulse Rate 97 H 90 Blood Pressure 138/82 123/77 O2 Sat by Pulse 99 Oximetry [ Anterior Bilateral Throughout] 09/19/21 09/19/21 09/19/21 02:41 02:42 07:36 Pulse Rate 86 86 86 Blood Pressure 134/80 134/80 147/87 O2 Sat by Pulse Oximetry [ Anterior Bilateral Throughout] 09/19/21 07:40 Pulse Rate Blood Pressure O2 Sat by Pulse 98 Oximetry [ Anterior Bilateral Throughout] Vital Signs - 24 hr 09/13/21 09/13/21 09/13/21 10:55 11:50 12:47 Temperature 97.9 F Pulse Rate 88 90 Respiratory 16 Rate Blood Pressure 120/77 115/66 Blood Pressure [Left] O2 Sat by Pulse Oximetry O2 Sat by Pulse Oximetry [ Anterior Bilateral Throughout] 09/13/21 09/13/21 09/13/21 15:45 16:41 18:16 Temperature 98.3 F Pulse Rate 89 94 H Respiratory 16 Rate Blood Pressure 129/73 122/77 Blood Pressure [Left] O2 Sat by Pulse Oximetry O2 Sat by Pulse Oximetry [ Anterior Bilateral Throughout] 09/13/21 09/13/21 09/13/21 18:54 20:37 20:38 Temperature 98.3 F 98.6 F Pulse Rate 90 88 Respiratory 16 18 Rate Blood Pressure 141/88 Blood Pressure 134/84 [Left] O2 Sat by Pulse 98 Oximetry O2 Sat by Pulse Oximetry [ Anterior Bilateral Throughout] 09/13/21 09/13/21 09/13/21 20:39 20:41 20:44 Temperature Pulse Rate 91 H 91 H Respiratory Rate Blood Pressure 134/84 Blood Pressure [Left] O2 Sat by Pulse 98 98 Oximetry O2 Sat by Pulse 98 Oximetry [ Anterior Bilateral Throughout] 09/14/21 09/14/21 09/14/21 01:45 01:46 01:51 Temperature Pulse Rate 87 87 87 Respiratory Rate Blood Pressure 123/71 123/71 Blood Pressure 123/71 [Left] O2 Sat by Pulse Oximetry O2 Sat by Pulse Oximetry [ Anterior Bilateral Throughout] 09/14/21 09/14/21 09/14/21 06:37 06:41 08:19 Temperature Pulse Rate 82 82 84 Respiratory Rate Blood Pressure 126/72 129/71 Blood Pressure 126/72 [Left] O2 Sat by Pulse Oximetry O2 Sat by Pulse Oximetry [ Anterior Bilateral Throughout] 09/14/21 08:20 Temperature 98.5 F Pulse Rate Respiratory 18 Rate Blood Pressure Blood Pressure [Left] O2 Sat by Pulse Oximetry O2 Sat by Pulse Oximetry [ Anterior Bilateral Throughout] Objective - Vital Signs Latest vital signs: Vital Signs Temp Pulse Resp BP BP Pulse Ox Pulse Ox 09/25/21 06:54 18 09/25/21 06:22 18 09/25/21 00:30 98.6 F 75 18 141/78 09/24/21 20:25 100 09/24/21 20:23 99.7 F H 105 H 18 146/75 96 09/24/21 19:36 18 09/24/21 16:19 98.7 F 106 H 20 119/72 99 09/24/21 12:17 100 09/24/21 11:00 98.5 F 97 H 20 111/79 98 09/24/21 10:23 18 09/24/21 10:17 94 H 140/91 09/24/21 08:30 98.7 F 80 20 127/84 99 09/24/21 08:19 100 Intake and Output 05/21/22 05/21/22 05/22/22 15:59 23:59 07:59 Intake Total 480 640 360 Output Total 1500 Balance -1020 640 360 Intake: Oral 480 520 Intake, Free Water 120 360 Output: Urine 1500 Void 1500 Other: Total, Intake Amount 120 200 Total, Output Amount 900 # Voids Void 1 1 - Labs Labs: Abnormal lab results 09/24/21 Range/Units 07:43 WBC 13.1 H (4.5-11.0) K/mm3 RBC 2.82 L (3.65-5.03) M/mm3 Hgb 8.6 L (10.1-14.3) gm/dl Hct 26.1 L (30.3-42.9) % RDW 16.2 H (13.2-15.2) % Seg Neutrophils % 75.5 H (40.0-70.0) % Seg Neutrophils # 9.9 H (1.8-7.7) K/mm3
--- NOTE | 2021-09-25 07:21 | Discharge Summary ---
Providers - Providers Date of Admission: 09/05/21 18:56 Date of discharge: 09/25/21 Attending physician: DIMITRIS PENA MD Primary care physician: SEUN LOVING MD Hospitalization Delivery: Procedure: section Discharge diagnosis: other (Chronic hypertension with superimposed preeclampsia with severe features), delivery Condition at discharge: Stable Disposition: 01 HOME / SELF CARE / HOMELESS Plan - Discharge Medications Prescriptions: Ibuprofen [Motrin] 800 mg PO Q8HR PRN 21 Days #30 tablet PRN Reason: Pain, Moderate (4-6) oxyCODONE /ACETAMINOPHEN [Percocet 5/325] 1 tab PO Q4HR PRN 21 Days #30 tab PRN Reason: Pain , Severe (7-10) - Provider Discharge Summary Activity: no sex for 6 weeks Additional instructions: [] Smoking cessation referral if applicable(refer to patient education folder for contact #) [] Refer to [facility] Booklet Call your doctor immediately for: * Fever > 100.5 * Heavy vaginal bleeding ( >1 pad per hour) * Severe persistent headache * Shortness of breath * Reddened, hot, painful area to leg or breast * Drainage or odor from incision. * Keep incision clean and dry at all times and follow doctor's instructions regarding bathing/showering - Follow up plan Follow up: PRIMARY CAREMD [Primary Care Provider] - 7 Days
[2021-09-25 09:11] VITALS: BP 129/84
[2021-09-25] MEDS: DOCUSATE SODIUM 100 MG CAP PO SCH (09:12)
[2021-09-25] MEDS: FERROUS SULFATE 325 MG TAB PO SCH (09:12)
[2021-09-25] MEDS: amLODIPine 5 MG TAB PO SCH (09:13)
[2021-09-25] MEDS: ASCORBIC ACID 500 MG TAB PO SCH (09:13)
== END 2021-09-25 10:30 | disposition home or self-care (01) | DRG 787 ==
LOC: TRG 17:41 → APU 17:43 → TRG 19:16 → LD 20:04 → APU 09-22 15:04 → LD 09-22 15:26 → APU 09-22 16:32 → LD 09-22 18:16 → OB 09-24 04:02
PROVIDERS: ADMIT Obstetrics & Gynecology; ATTEND Obstetrics & Gynecology
PROC: 10D00Z1 Extraction of Products of Conception, Low, Open Approach (ICD-10-PCS; principal; 2021-09-22)
PROC: 4A033R1 Measurement of Arterial Saturation, Peripheral, Percutaneous Approach (ICD-10-PCS; 2021-09-22)
DX: O13.4 Gestational [pregnancy-induced] hypertension without significant proteinuria, complicating childbirth (principal); O99.12 Other diseases of the blood and blood-forming organs and certain disorders involving the immune mechanism complicating childbirth; Z3A.29 29 weeks gestation of pregnancy; Z20.822 Contact with and (suspected) exposure to COVID-19; O76 Abnormality in fetal heart rate and rhythm complicating labor and delivery; D69.6 Thrombocytopenia, unspecified; O14.14 Severe pre-eclampsia complicating childbirth; O99.02 Anemia complicating childbirth; O72.0 Third-stage hemorrhage; Z37.0 Single live birth
CPT/HCPCS: 36415; 59025; 76815; 76816; 76819; 76820; 80053; 81001; 82565; 82805; 83615; 83735; 84156; 84450; 84460; 84550; 85014; 85018; 85025; 85027; 86850; 86900; 86901; 88307; 96360; 96374; 96376; G0378; J0630; J3490; J7121; J0690; J0702; J1100; J1885; J2270; J2405; J2765; J3475; J7030; J7120; U0003